=== PATIENT | male | born 1935 | race Caucasian/White ===

== ENCOUNTER → 2016-10-02 | Outpatient (CLI) | payer OTHER ==
[~2016-10-02] MED LIST: ATOR10TA88 PO; MULT-506 PO; OMEG10007 PO; TRAZ50TA35 PO
[2016-10-02 13:38] LABS: CHOLESTEROL/HDL RATIO 4.5
== END | disposition home or self-care (01) ==
LOC: C.LABPVFM 08:07
PROVIDERS: ATTEND Family Medicine
DX: E78.5 Hyperlipidemia, unspecified (principal)

== ENCOUNTER → 2017-04-08 | Day surgery (SDC) | payer OTHER ==
[2017-04-07 11:40] VITALS: Ht 172.7 cm; Wt 75.5 kg
[~2017-04-08] VITALS: Ht 172.7 cm; Wt 75.5 kg
[~2017-04-08] MED LIST changes: +500ML BSSPLUS 0.5ML EPI1:1000 IRRIG ONE; +ACETAMINOPHEN 325 MG TAB PO PRN; +ATROPINE SULFATE 0.1 MG/ML 5ML SYR IV PRN; +ATROPINE SULFATE 1% OP OINT PER APPLICATION CHARGE ONE; +BSS FLUSH ONE; +BUPIVACAINE HCL 0.75% 10 ML AMP/VIAL ONE; +CEFAZOLIN SOD 1 GM VIAL ONE; +DEXAMETHASONE SOD INJ 4 MG/ML VIAL ONE; +EpHEDrine SULFATE INJ 50 MG/ML AMP IV PRN; +EpINEphrine INJ 1MG/ML AMP 1 MG/ML AMP ONE; +FENTANYL CITRATE INJ 50 MCG/1 ML 2 ML VIAL IV PRN; +FLUMAZENIL 0.1 MG/1 ML 10 ML VIAL IV PRN; +HYALURONIDASE HUMAN 150 UNIT/ML INJ ONE; +HYDROmorphone INJ 2 MG/ML SYR/VIAL IV PRN; +LABETALOL HCL IV 5 MG/ML 20ML IV PRN; +LACTATED RINGER'S 1000ML 500 ML IV SCH; +LIDOCAINE HCL 2% 2 ML VIAL (20MG/ML) ONE; +LIDOCAINE MPF 4% INJ INJ ONE; +MEPERIDINE HCL 25 MG/ML CARP IV PRN; +NALOXONE HCL 0.4 MG/1 ML VIAL/CARP IV PRN; +NEOMYCIN/POLYMYX/DEXAMETH OP OINT PER APP CHARGE ONE; +OCUCOAT 1 ML SOLN IO ONE; +ONDANSETRON INJ 2 MG/ML 2 ML VIAL IV PRN; +PHENYLEPHRINE 100MCG/ML 5ML SYR IV PRN; +POVIDONE-IODINE OP SOLN (SURGERY CNTR CHARGING ONLY) ONE; +PROPARACAINE 0.5% OP SOLN PER DROP CHARGE OPR SCH; +PROPOFOL IV EMULSION 10 MG/ML 20 ML VIAL IV ONE; +TIMOLOL MALEATE 0.5% OP SOLN PER DROP CHARGE ONE
[2017-04-08] MEDS: PHENYLEPHRINE HCL 2.5% OP SOLN PER DROP CHARGE OPR SCH ×2 (06:36→06:44)
[2017-04-08] MEDS: TROPICAMIDE 1% OP SOLN PER DROP CHARGE OPR SCH ×2 (06:37→06:45)
--- NOTE | 2017-04-08 06:54 | History & Physical Bridge - [place] ---
H&P Re-Evaluation Bridge Note: pt has retinal detachment right eye and is having vitrectomy right eye. I have examined the patient, reviewed the History & Physical and in the interval since the performance of the History & Physical I have noted the following changes of clinical significance: No changes noted
[2017-04-08 08:06] VITALS: TEMP 36.5
--- NOTE | 2017-04-08 08:09 | [facility] Operative Report ---
Operative Report Date of Service Apr 08, 2017. Operative Report PREOPERATIVE DIAGNOSIS: Retinal detachment, right eye. ICD 10: H33.011 POSTOPERATIVE DIAGNOSIS: same. PROCEDURE: 1. Pars plana vitrectomy, 23 gauge. 2. Fluid-air exchange. 3. Endolaser. 4 Air-gas exchange with SF6 20%. All to the right eye. CPT CODE: 91921 SURGEON: Isidro Payne D.O. COMPLICATIONS: None. ESTIMATED BLOOD LOSS: None. SPECIMENS: None. ANESTHESIA: Retrobulbar block and MAC. INDICATIONS FOR PROCEDURE: Surgery is indicated to decrease risk of vision loss and potentially improve vision. CONSENT: The risks, benefits and alternatives were discussed with the patient including but not limited to decreased visual acuity, failure to achieve desired results, loss of the eye, infection, pain, glaucoma, lens changes, retinal tears, retinal detachment, the need for more procedures, drooping of the eyelid, blindness, and double vision. The patient is aware of risks and consents to the surgery. Consent is signed and on the chart. OPERATION AND FINDINGS: The patient was brought to the operating room where the patient was identified by name, date, and medical record number. The surgical site was confirmed with the informed written consent. The patient was sedated by the anesthesiology team after which a 50:50 mixture of 4% lidocaine and 0.75% bupivacaine with hyaluronidase was administered in a standard retrobulbar fashion. A total of 4 ml was administered without difficulty. The patient was then prepped and draped in the usual sterile manner for retinal surgery. A wire lid speculum was placed and an Carlos 23-gauge trocar cannula system was employed. The inferior temporal trocar cannula was first placed in an angled fashion 3.75mm posterior to the surgical limbus and the infusion cannula was inserted into this cannula after which the intravitreal position was verified prior to turning the infusion on. Two more trocar cannulas were then inserted in an angled fashion, one in the superior temporal, and one in the superior nasal quadrant both 3.75mm posterior to the surgical limbus. A light pipe and vitrector were then introduced into the eye and the BIOM wide angle viewing system was brought into place. Posterior inspection revealed a retinal detachment from 10 to 7 o'clock with the small inciting retinal break at 12:30 o'clock. Standard core vitrectomy was performed and the vitreous was insured to be totally detached from the posterior pole with the aid of the vitrector. The vitreous base was shaved for 360 degrees. At this point scleral depression was performed for 360 degrees and no other retinal tears were noted. Fluid air exchange was performed and the subretinal fluid was drained through a small retinotomy site that was fashioned superior to the optic nerve also one was fashioned inferior to the optic nerve. Endolaser was then used to place laser around the inciting retinal break and the drainage retinotomies and the superior quadrant. Next, an air gas exchange was performed with SF620% for a complete fill of the eye. The trocar cannulas were then removed and found to be air tight. The intraocular pressure was found to be within normal limits by palpation and subconjunctival injections of Kefzol and dexamethasone were administered inferiorly and superiorly. The wire lid speculum was removed. Maxitrol, atropine and timolol were applied to the surface of the eye. A light patch and shield were taped over the surface of the eye and the patient left the Operating Room in stable condition having tolerated the procedure well. DISPOSITION: A gas bracelet was placed on the patient's wrist and gas precautions reviewed as well as the positioning instructions. The patient has an appointment the following morning in the Ophthalmology Clinic. The patient is to call immediately if there are any problems overnight. I attest to the content of the Intraoperative Record and any orders documented therein. Any exceptions are noted below.
--- NOTE | 2017-04-08 08:11 | Discharge Instructions-SurgCtr ---
Discharge Instructions Date of Service Apr 08, 2017. Visit Reason for Visit: Retinal Detachment Discharge Discharge Diagnosis / Problem: same Discharge Goals Goal(s): Improve function Activity Recommendations Activity Limitations: per Instructions/Follow-up section Anesthesia . Post Anesthesia Instructions: If you have had General Anesthesia or IV Sedation: * Do not drive today. * Resume driving when surgeon permits. * Do not make important decisions or sign legal documents today. * Call surgeon for: 1. Temperature elevations greater than 101 degrees F. 2. Uncontrollable pain. 3. Excessive bleeding. 4. Persistent nausea and vomiting. 5. Medication intolerance (nausea, vomiting or rash). * For nausea and vomiting use only clear liquids such as: tea, soda, bouillon until nausea subsides, then gradually increase diet as tolerated. * If you have any concerns or questions, call your surgeon's office. If physician is unavailable and it is an emergency, call 911 or go to the nearest emergency room. . Instructions / Follow-Up Instructions / Follow-Up * May take Tylenol if needed for discomfort. * Do NOT lay on back and position head as follows: face forward, chin down. Sleep right side down. * Do NOT remove green bracelet until instructed to do so by your surgeon and follow these precautions: * No air travel * No travel above 2500 feet * No nitrous oxide (N2O). * Do NOT remove eye shield. * NO straining, heavy lifting (>15 pounds) or bending below waist. * Avoid getting water or soap directly into operative eye. * Do NOT rub eye. If you experience increasing eye pain not relieved by medication, please contact us immediately at [phone]. If you are unable to reach someone at the above number, call [phone] and ask to speak with the EYE DOCTOR CATERING TRUCK OPERATOR. Inform them that you are a Dr. aPyne patient who had recent surgery. Diet Recommendations Home Diet: resume previous diet Procedures Procedures Performed: Right Vitrectomy 23 Gauge Pending Studies Studies pending at discharge: no Medical Emergencies . Who to Call and When: Medical Emergencies: If at any time you feel your situation is an emergency, please call 911 immediately. . Non-Emergent Contact Non-Emergency issues call your: Vessel Slagman . . "Provider Documentation" section prepared by Isidro Payne. .
--- NOTE | 2017-04-08 08:24 | Anesthesia Progress Nt - [facility] ---
Anesthesia Post Op Note Date & Time Apr 08, 2017 at 08:24 Vital Signs Pain Intensity: 0 Vital Signs Past 12 Hours Date Time Temp Pulse Resp B/P (MAP) Pulse Ox O2 Delivery O2 Flow Rate FiO2 04/08/17 08:06 36.5 74 18 161/82 (108) 96 Room Air 04/08/17 06:27 36.4 70 18 128/77 (94) 96 Room Air Notes Mental Status: alert / awake / arousable, participated in evaluation Pt Amnestic to Procedure: Yes Nausea / Vomiting: adequately controlled Pain: adequately controlled Airway Patency, RR, SpO2: stable & adequate BP & HR: stable & adequate Hydration State: stable & adequate Anesthetic Complications: no major complications apparent
[2017-04-08 08:28] VITALS: BP 160/84; PULSE 67; O2SAT 95
== END | disposition home or self-care (01) ==
LOC: X.SURG 06:08
PROVIDERS: ATTEND Ophthalmology
DX: H33.011 Retinal detachment with single break, right eye (principal); R03.0 Elevated blood-pressure reading, without diagnosis of hypertension; E78.5 Hyperlipidemia, unspecified; L29.9 Pruritus, unspecified; L30.9 Dermatitis, unspecified; Z85.828 Personal history of other malignant neoplasm of skin

== ENCOUNTER → 2017-08-12 | Outpatient (CLI) | payer OTHER ==
[~2017-08-12] MED LIST changes: -500ML BSSPLUS 0.5ML EPI1:1000 IRRIG ONE; -ACETAMINOPHEN 325 MG TAB PO PRN; +ATOR10TA82 PO; -ATOR10TA88 PO; -ATROPINE SULFATE 0.1 MG/ML 5ML SYR IV PRN; -ATROPINE SULFATE 1% OP OINT PER APPLICATION CHARGE ONE; -BSS FLUSH ONE; -BUPIVACAINE HCL 0.75% 10 ML AMP/VIAL ONE; -CEFAZOLIN SOD 1 GM VIAL ONE; -DEXAMETHASONE SOD INJ 4 MG/ML VIAL ONE; -EpHEDrine SULFATE INJ 50 MG/ML AMP IV PRN; -EpINEphrine INJ 1MG/ML AMP 1 MG/ML AMP ONE; -FENTANYL CITRATE INJ 50 MCG/1 ML 2 ML VIAL IV PRN; -FLUMAZENIL 0.1 MG/1 ML 10 ML VIAL IV PRN; -HYALURONIDASE HUMAN 150 UNIT/ML INJ ONE; -HYDROmorphone INJ 2 MG/ML SYR/VIAL IV PRN; -LABETALOL HCL IV 5 MG/ML 20ML IV PRN; -LACTATED RINGER'S 1000ML 500 ML IV SCH; -LIDOCAINE HCL 2% 2 ML VIAL (20MG/ML) ONE; -LIDOCAINE MPF 4% INJ INJ ONE; -MEPERIDINE HCL 25 MG/ML CARP IV PRN; -NALOXONE HCL 0.4 MG/1 ML VIAL/CARP IV PRN; -NEOMYCIN/POLYMYX/DEXAMETH OP OINT PER APP CHARGE ONE; -OCUCOAT 1 ML SOLN IO ONE; -ONDANSETRON INJ 2 MG/ML 2 ML VIAL IV PRN; -PHENYLEPHRINE 100MCG/ML 5ML SYR IV PRN; -POVIDONE-IODINE OP SOLN (SURGERY CNTR CHARGING ONLY) ONE; -PROPARACAINE 0.5% OP SOLN PER DROP CHARGE OPR SCH; -PROPOFOL IV EMULSION 10 MG/ML 20 ML VIAL IV ONE; -TIMOLOL MALEATE 0.5% OP SOLN PER DROP CHARGE ONE
[2017-08-12 12:37] LABS: BASO % 0.2 %; BASO ABS # 0.02 K/uL (0-0.2); EOS % 2.3 %; EOS ABS # 0.28 K/uL (0-0.5); HEMATOCRIT 40.8 % (42-52); HEMOGLOBIN 13.7 g/dL (14.0-18.0); IG# 0.05 K/uL (0.00-0.02); LYMPH % 19.8 %; LYMPH ABS # 2.36 K/uL (1.2-3.4); MEAN CELL VOLUME 94.7 fL (80-100); MEAN CORPUSCULAR HEMOGLOBIN 31.8 pg (25-34); MEAN CORPUSCULAR HGB CONC 33.6 g/dl (32-36); MEAN PLATELET VOLUME 9.5 fL (7.4-10.4); MONO % 8.3 %; MONO ABS # 0.99 K/uL (0.11-0.59); NEUT ABS # 8.22 K/uL (1.4-6.5); PLATELET COUNT 215 K/uL (130-400); RED CELL DISTRIBUTION WIDTH SD 45.1 fL (36.4-46.3); WHITE BLOOD COUNT 11.92 K/uL (4.8-10.8)
[2017-08-12 12:41] LABS: ALBUMIN 3.2 gm/dl (3.4-5.0); ALT/SGPT 22 U/L (12-78); BLOOD UREA NITROGEN 20 mg/dl (7-18); CALCIUM 9.1 mg/dl (8.5-10.1); CARBON DIOXIDE 28 mmol/L (21-32); CREATININE 1.05 mg/dl (0.60-1.40); GLUCOSE 99 mg/dl (70-99); POTASSIUM 4.5 mmol/L (3.5-5.1); SODIUM 139 mmol/L (136-145)
[2017-08-12 12:44] LABS: ALKALINE PHOSPHATASE 55 U/L (45-117); AST/SGOT 20 U/L (15-37)
== END | disposition home or self-care (01) ==
LOC: C.LAB1850 11:23
PROVIDERS: ATTEND Internal Medicine Pulmonary Disease
DX: L29.9 Pruritus, unspecified (principal); L50.3 Dermatographic urticaria

== ENCOUNTER 2022-06-06 19:16 | Observation (INO) ==
[2022-06-06] MEDS ORDERED: SODIUM CHLORIDE 0.9% 1000ML 1,000 ML IV SCH (19:30)
--- NOTE | 2022-06-06 19:57 | XRay Report ---
XR chest 1V portable CLINICAL HISTORY: syncope TECHNIQUE: Single frontal radiograph of the chest was obtained. Comparison: Comparison is made to chest radiograph 11/26/2020 FINDINGS: No lines and tubes are seen. Cardiomegaly is noted. The lungs are clear. No evidence of pleural effus ion or pneumothorax. IMPRESSION: No acute chest disease. Cardiomegaly is noted. ACT 112: Negative or not required by law. Electronically signed by: Vini Tobin M.D. 06/06/2022 7:55 PM
[2022-06-06 20:04] LABS: Basophils # (auto) 0.04 K/uL (0-0.2); Basophils % (auto) 0.3 %; Eosinophils # (auto) 0.32 K/uL (0-0.50); Eosinophils % (auto) 2.2 %; Hematocrit (blood only) 37.6 % (40.1-51.0); Hemoglobin 13.1 g/dl (14.0-18.0); Immature Granulocytes # (auto) 0.05 K/uL (0.00-0.02); Immature Granulocytes % (auto) 0.3 %; Lymphocytes # (auto) 1.85 K/uL (1.2-3.4); Lymphocytes % (auto) 12.6 %; Mean Corpuscular Hemoglobin 32.5 pg (25.0-34.0); Mean Corpuscular Hgb Conc 34.8 g/dL (32.0-36.0); Mean Corpuscular Volume 93.3 fL (80.0-100.0); Mean Platelet Volume 9.1 fL (9.4-12.4); Monocytes # (auto) 1.11 K/uL (0.24-0.82); Monocytes % (auto) 7.6 %; Neutrophils # (auto) 11.31 K/uL (1.4-6.5); Platelet Count 267 K/uL (130-400); RDW Coefficient of Variation 12.3 % (11.5-14.5); RDW Standard Deviation 42.3 fL (36.4-46.3); Red Blood Count 4.03 M/uL (4.63-6.08); White Blood Count 14.68 K/ul (4.8-10.8)
[2022-06-06 20:15] LABS: Prothrombin Time 10.3 Seconds (9.0-12.0)
[2022-06-06 20:28] LABS: Albumin Globulin Ratio 1.1 (0.9-2); Albumin Level 3.8 gm/dl (3.4-5.0); Bilirubin,Total 0.5 mg/dl (0.2-1.0); Calcium 9.1 mg/dl (8.5-10.1); Creatinine Clr Calc Pharmacy 44.6 ml/min; Est GFR (African American) 66.4 ml/min; Est GFR (Non-African American) 57.3 ml/min; Globulin 3.4 gm/dl (2.5-4.0); Magnesium 2.1 mg/dl (1.7-2.4); Potassium 4.3 mmol/L (3.5-5.1); Total Protein 7.2 gm/dl (6.0-8.3)
[2022-06-06 20:31] LABS: Troponin I High Sensitivity 6.1 pg/ml (0-20)
--- NOTE | 2022-06-06 20:37 | CT Scan Report ---
CT cervical spine wo con CLINICAL HISTORY: fall, [facility] TECHNIQUE: Multidetector row helical CT of the cervical spine was performed without administration of intravenous contrast. Coronal and sagittal reformations were obtained. Automated dose lowering techn iques and/or adjustment according to patient size were utilized for this exam. Comparison: None available at the time of this dictation. FINDINGS: No acute fractures or subluxations are identified. Degenerative changes are seen in the visualized sp ine. The alignment is normal. Soft tissues are unremarkable. IMPRESSION: Degenerative changes without evidence of acute bony injury. ACT 112: Negative or not required by law. Electronically signed by: Vini Tobin M.D. 06/06/2022 8:35 PM
[2022-06-06 20:41] LABS: Thyroid Stimulating Hormone 6.754 uIu/ml (0.300-4.500)
--- NOTE | 2022-06-06 20:46 | CT Scan Report ---
CT head/brain wo con CLINICAL HISTORY: syncope [facility] Technique: Contiguous axial CT images of the head were acquired from the base of the skull to the jung janette without intravenous contrast administration. Images were viewed in brain, subdural and bone [facility]. Automated dose lowering techniques and/or adjustment according to patient size were utilized for this exam. Comparison: Comparison is made to CT head 11/26/2020 Findings: Areas of decreased attenuation are present in the periventricular and subcortical white matter bilate rally consistent with small vessel ischemic disease. Generalized cerebral volume loss with commensura te enlargement of the ventricles, sulci, and cisterns is also present. There is a subacute appearing mildly complex right subdural collection measuring up to 7 mm in diameter, compared to 5 mm in prior exam. No significant mass effect or midline shift is seen. A few linear densities in the subdural col lection are unchanged from prior exam Sinus disease is seen in the bilateral maxillary sinuses. The orbits appear normal. There are no acu te fractures of the calvaria or scalp swelling. Impression: No acute abnormalities. Interval enlargement of a small right fluid collection which appears subdural . No evidence of acute hemorrhage, however may represent enlarged subarachnoid space versus chronic s ubdural hemorrhage. ACT 112: Negative or not required by law. Electronically signed by: Vini Tobin M.D. 06/06/2022 8:44 PM
[2022-06-06 20:49] LABS: Influenza A virus by PCR Negative (Neg); Influenza B virus by PCR Negative (Neg); RSV by PCR Negative (Neg); SARS CoV2 RNA(COVID-19)Cepheid NEGATIVE (Negative)
[2022-06-06 21:06] LABS: Appearance Urine Clear (Clear); Bacteria Urine Automated Negative (Negative); Bilirubin Urine Negative (Negative); Blood Urine 2+ (Negative); Color Urine Yellow; Epithelial Cell Urine Auto >30 /lpf (0-5); Glucose Urine UA Negative (Negative); Ketones Urine Negative (Negative); Leukocyte Esterase Urine Negative (Negative); Nitrite Urine Negative (Negative); RBC Urine Automated >30 /hpf (0-4); Specific Gravity Urine 1.015 (1.000-1.030); Urobilinogen Urine Negative (Negative); pH Urine 7.5 (4.5-7.5)
[2022-06-06 21:14] LABS: Protein Urine 2+ (Negative)
[2022-06-06 21:16] LABS: T4 Free Thyroxine 0.84 ng/dl (0.61-1.60)
[2022-06-06] MEDS ORDERED: ACETAMINOPHEN 325 MG TAB PO PRN (23:04)
[2022-06-06] MEDS ORDERED: POLYETHYLENE (MIRALAX) 17 GM PACK PO PRN (23:04)
--- NOTE | 2022-06-06 23:04 | History & Physical Report ---
Date of Service June 06, 2022 Assessment & Plan (1) Fall: Plan: 87yo Male with PMH dementia hypothyroidism HLD BPH Anxiety insomnia here for unwitnessed fall. Here today with and son. Per , patient was walking back from kitchen when he fell on the floor. Fall -shuffling gait but no resting tremor cogwheel rigidity, does not like to use cane -CT head: No acute abnormalities. Interval enlargement of a small right fluid collection which appears subdural. No evidence of acute hemorrhage, however may represent enlarged subarachnoid space versus chronic subdural hemorrhage. -CT spine: Degenerative changes without evidence of acute bony injury. -CXR: No acute chest disease. Cardiomegaly is noted. -EKG: NSR -Trop negx1 -WBC 14.68 -UA trace hematuria protenuria -ordered lactate, CRP, procal to rule out infection -ordered orthostatics -ordered PT/OT -trend CBC Head Injury -located on left side of head after fall -ED to place stitches Dementia -continue donepezil Hypothyroidism -TSH elevated 6.754 -possibly reactive, recheck in 1 month BPH -continue finasteride, midodrine Anxiety -continue sertraline Insomnia -continue trazadone BERNARDO -ordered HS CPAP HLD -continue atorvastatin FENa: regular Code Status: full PT/OT: ordered Dispo: graeme/Tressa Hunt D.O. PGY 2, FCM (2) Mixed dementia: (3) Severe sleep apnea: (4) Hypothyroid: (5) Hyperlipidemia: (6) Anxiety: (7) Memory impairment: History of Present Illness Chief Complaint: Fall Primary Care Provider: Erika Sequeira MD 87yo Male with PMH dementia hypothyroidism HLD BPH sertraline insomnia here for unwitnessed fall. Here today with and son. Per , patient was walking back from kitchen when he fell on the floor. Patient does not recall the fall itself. He denies any headache vision changes nausea vomitting fever SOB chest pain abd pain urniary difficulty weakness or change in sensation. States the left side of his head does hurt if you touch his wound. Per family, patient has a shuffling gait, refuses to use a cane at home, does not appear to have any difficulty making turns while walking. He has had numerous other falls at home. Family states his mentation is fairly ok at this time however is still confused. Patient able to identify current location and date, identifies year correctly however said he was 37 years old. He is in charge of his medication with some assistance from his , he does not know his current medications. Patient states the left side of his face occasionally gets pain/itchiness from a previous viral infection, it is not causing him discomfort at this time. states his right lower eyelid is newly red, patient denies any pain or discomfort in his eye at this time. Allergies Allergy/AdvReac Type Severity Reaction Status Date / Time walnut Allergy Severe AFFECTS Verified 06/06/22 20:48 THE LINING OF MOUTH AND THROAT (ITCHY) lidocaine Allergy Mild Rash Verified 06/06/22 20:48 Home Medications Medication Instructions Recorded Confirmed Type multivitamin 1 tab PO QAM 12/28/18 06/06/22 History omega 9-qgr-psw-fish oil 1,000 mg 1 cap PO QAM 12/28/18 06/06/22 History (120 mg-180 mg) capsule (Fish Oil) cholecalciferol (vitamin D3) 25 25 mcg PO QAM 05/16/20 06/06/22 History mcg (1,000 unit) tablet (Vitamin D3) vitamin E 200 unit capsule 200 unit PO QAM 05/16/20 06/06/22 History albuterol sulfate 90 mcg/actuation 2 puff inhalation QID PRN 11/12/21 06/06/22 Rx aerosol inhaler shortness of breath or wheezing #6.7 grams atorvastatin 10 mg tablet 10 mg PO HS #90 tabs 12/09/21 06/06/22 Rx levothyroxine 50 mcg tablet 50 mcg PO DAILY #90 tabs 12/09/21 06/06/22 Rx sertraline 50 mg tablet 50 mg PO DAILY #30 tabs 01/17/22 06/06/22 Rx midodrine 2.5 mg tablet 2.5 mg PO .COMPLEX #60 tabs 01/21/22 06/06/22 Rx donepezil 5 mg tablet 5 mg PO DAILY #30 tabs 05/02/22 06/06/22 Rx finasteride 5 mg tablet 5 mg PO DAILY #90 tabs 05/06/22 06/06/22 Rx benzonatate 100 mg capsule 100 mg PO TID PRN cough #20 caps 05/19/22 06/06/22 Rx trazodone 50 mg tablet 50 mg PO HS 06/06/22 06/06/22 History Past Med/Surg History Medical History (Updated 06/06/22 @ 23:24 by Tressa Montejo DO) Anosmia 2018? Anxiety Basal cell carcinoma of skin Benign neoplasm of colon Cholecystitis Epigastric abdominal pain Fatigue Ongoing issue x 2 yrs, pt has had cardiac workup, neuro eval and uro eval to r/o bladder ca. Hyperlipidemia HZV (herpes zoster virus) post herpetic neuralgia Intractable abdominal pain Lightheadedness AM Memory impairment PCP and pt's feel pt showing signs of dementia, pt was started on Aricept but stopped taking it. Right rotator cuff tendonitis Sensorineural hearing loss of both ears Severe dizziness Negative cardiac and neuro workup. Severe sleep apnea Shingles LEFT EYE-DX'D 2 YRS AGO Sleep disturbances Temporomandibular joint disorder CLICKS-HAS NEVER LOCKED Surgical History H/O umbilical hernia repair (05/31/20) Open Incisional Hernia Repair with Mesh Open Umbilical Hernia Repair with Mesh, excision of skin lesion, Enterolysis Dr. Navas 05/31/2020 History of incisional hernia repair (05/31/20) Open Incisional Hernia Repair with Mesh; - Kranthi Navas, Open Umbilical Hernia Repair with Mesh, excision of skin lesion, Enterolysis Dr. Navas 05/31/2020 History of shoulder surgery LEFT Hx of colonoscopy S/P appendectomy PT DENIES Family History Mother Myocardial infarction Father No problems noted. Other No family history of adverse response to anesthesia No family history of bleeding disorder Denies family history of Ovarian cancer Prostate cancer Breast cancer Colorectal cancer Social History Smoking Status: Never smoker Second Hand Exposure: No; Do You Dip or Chew Tobacco: No; Tobacco Cessation Education Requested by Patient: No Hx Alcohol Use: No Hx Substance Use: No Preferred Language: Polish Communication Ability: dementia Visual Impairment: No Limitations Hearing Ability: Use of Hearing Aid Open Cut Examiner Required: No Beliefs That Will Affect Care: None marital status: Current Living Situation: Spouse current occupational status: retired 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, [employer]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 How many Children do You have: 2 Other Information That Helps Us Care for You: No 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76 Feels Safe at Home: Yes Safety Concerns: Feels Safe At This Time Childhood Exposure to Second-Hand Smoke: No caffeine: Yes (tea rarely) during the past year weight has: remained stable Dental Care, Regularly: Yes Physical Activity Frequency: 3-4 Times per Week Seatbelt Use: always Sunscreen Use: Yes Do you think of yourself as: straight/heterosexual Gender Identity: Male Assistive Devices: None Review of Systems Constitutional: as per Subjective / HPI Physical Exam Constitutional: WD/WN, vitals as above Eyes: PERRL, conjunctivae normal, anicteric sclerae ENMT: external ear and nose normal, oropharynx normal bleeding bandaged injury on left side of head Neck: trachea midline, no thyromegaly Respiratory: normal respiratory effort, lungs clear to auscultation Cardiovascular: Rate/Rhythm: regular rate and regular rhythm Extremities: no edema Gastrointestinal (Abdomen): Inspection/Auscultation: abdomen normal to inspection Percussion/Palpation: abdomen soft; abdomen nontender Musculoskeletal: no cyanosis or clubbing, extremities motor strength 5/5 Skin: no rashes, warm and dry 1.5cm darkened round lesion on left lateral leg, followed by dermatology Neurologic: CN's II-XI intact bilaterally and + confused no resting tremor, no cogwheel rigidity Psychiatric: A+Ox3, euthymic affect Results & Data Results & Data ([facility]) Vital Signs (Past 12 Hours) Vital Signs Temp Pulse Pulse Resp BP BP Pulse Ox 06/06/22 21:25 78 18 129/72 91 06/06/22 21:00 37.2 C 82 16 140/75 93 06/06/22 19:26 87 22 93 06/06/22 19:25 36.9 C 87 16 170/88 H 90 06/06/22 19:25 90 06/06/22 19:04 36.9 C 87 22 170/88 H 90 O2 Del Method 06/06/22 21:25 Room Air 06/06/22 21:00 Room Air 06/06/22 19:26 Room Air 06/06/22 19:25 Room Air 06/06/22 19:25 Room Air 06/06/22 19:04 Room Air Diagnostic Findings Laboratory Results WBC 14.68 K/ul (4.8-10.8) H 06/06/22 19:40 RBC 4.03 M/uL (4.63-6.08) L 06/06/22 19:40 Hgb 13.1 g/dl (14.0-18.0) L 06/06/22 19:40 Hct 37.6 % (40.1-51.0) L 06/06/22 19:40 MCV 93.3 fL (80.0-100.0) 06/06/22 19:40 MCH 32.5 pg (25.0-34.0) 06/06/22 19:40 MCHC 34.8 g/dL (32.0-36.0) 06/06/22 19:40 RDW Std Deviation 42.3 fL (36.4-46.3) 06/06/22 19:40 RDW Coeff of Roby 12.3 % (11.5-14.5) 06/06/22 19:40 Plt Count 267 K/uL (130-400) 06/06/22 19:40 MPV 9.1 fL (9.4-12.4) L 06/06/22 19:40 Immature Gran % (Auto) 0.3 % 06/06/22 19:40 Neut % (Auto) 77.0 % 06/06/22 19:40 Lymph % (Auto) 12.6 % 06/06/22 19:40 [place] % (Auto) 7.6 % 06/06/22 19:40 Eos % (Auto) 2.2 % 06/06/22 19:40 Baso % (Auto) 0.3 % 06/06/22 19:40 Neut # (Auto) 11.31 K/uL (1.4-6.5) H 06/06/22 19:40 Lymph # (Auto) 1.85 K/uL (1.2-3.4) 06/06/22 19:40 [place] # (Auto) 1.11 K/uL (0.24-0.82) H 06/06/22 19:40 Eos # (Auto) 0.32 K/uL (0-0.50) 06/06/22 19:40 Baso # (Auto) 0.04 K/uL (0-0.2) 06/06/22 19:40 Immature Gran # (Auto) 0.05 K/uL (0.00-0.02) H 06/06/22 19:40 PT 10.3 Seconds (9.0-12.0) 06/06/22 19:40 INR 1.0 (0.9-1.1) 06/06/22 19:40 Sodium 138 mmol/L (136-145) 06/06/22 19:40 Potassium 4.3 mmol/L (3.5-5.1) 06/06/22 19:40 Chloride 103 mmol/L (98-107) 06/06/22 19:40 Carbon Dioxide 28 mmol/L (21-32) 06/06/22 19:40 Anion Gap 7 (3-11) 06/06/22 19:40 BUN 23 mg/dl (6-23) 06/06/22 19:40 Creatinine 1.15 mg/dl (0.6-1.4) 06/06/22 19:40 Est Cr Clr Drug Dosing 44.6 ml/min 06/06/22 19:40 Est GFR ( Amer) 66.4 ml/min 06/06/22 19:40 Est GFR (Non-Af Amer) 57.3 ml/min 06/06/22 19:40 BUN/Creatinine Ratio 20.0 (10-20) 06/06/22 19:40 Glucose 101 mg/dl (70-99(Fasting)) H 06/06/22 19:40 Calcium 9.1 mg/dl (8.5-10.1) 06/06/22 19:40 Magnesium 2.1 mg/dl (1.7-2.4) 06/06/22 19:40 Total Bilirubin 0.5 mg/dl (0.2-1.0) 06/06/22 19:40 AST 19 U/L (13-39) 06/06/22 19:40 ALT 14 U/L (7-52) 06/06/22 19:40 Alkaline Phosphatase 55 U/L (34-104) 06/06/22 19:40 Troponin I High Sens 6.1 pg/ml (0-20) 06/06/22 19:40 Total Protein 7.2 gm/dl (6.0-8.3) 06/06/22 19:40 Albumin 3.8 gm/dl (3.4-5.0) 06/06/22 19:40 Globulin 3.4 gm/dl (2.5-4.0) 06/06/22 19:40 Albumin/Globulin Ratio 1.1 (0.9-2) 06/06/22 19:40 TSH 6.754 uIu/ml (0.300-4.500) H 06/06/22 19:40 Free T4 0.84 ng/dl (0.61-1.60) 06/06/22 19:40 Urine Color Yellow 06/06/22 20:30 Urine Appearance Clear (Clear) 06/06/22 20:30 Urine pH 7.5 (4.5-7.5) 06/06/22 20:30 Ur Specific [place] 1.015 (1.000-1.030) 06/06/22 20:30 Urine Protein 2+ (Negative) H 06/06/22 20:30 Urine Glucose (UA) Negative (Negative) 06/06/22 20:30 Urine Ketones Negative (Negative) 06/06/22 20:30 Urine Blood 2+ (Negative) H 06/06/22 20:30 Urine Nitrite Negative (Negative) 06/06/22 20:30 Urine Bilirubin Negative (Negative) 06/06/22 20:30 Urine Urobilinogen Negative (Negative) 06/06/22 20:30 Ur Leukocyte Esterase Negative (Negative) 06/06/22 20:30 Urine WBC (Auto) 1-5 /hpf (0-5) 06/06/22 20:30 Urine RBC (Auto) >30 /hpf (0-4) H 06/06/22 20:30 U Hyaline Cast (Auto) 1-5 /lpf (0-5) 06/06/22 20:30 U Epithel Cells (Auto) >30 /lpf (0-5) H 06/06/22 20:30 Urine Bacteria (Auto) Negative (Negative) 06/06/22 20:30 Ur Renal Epithelial Cell Not Reportable 06/06/22 20:30 SARS-CoV-2 (PCR) NEGATIVE (Negative) 06/06/22 19:40 Influenza Type A (PCR) Negative (Neg) 06/06/22 19:40 Influenza Type B (PCR) Negative (Neg) 06/06/22 19:40 RSV (RT-PCR) Negative (Neg) 06/06/22 19:[address] 06/06/22 19:26 CT cervical spine wo con CLINICAL HISTORY: fall, [facility] TECHNIQUE: Multidetector row helical CT of the cervical spine was performed without administration of intravenous contrast. Coronal and sagittal reformations were obtained. Automated dose lowering techniques and/or adjustment according to patient size were utilized for this exam. Comparison: None available at the time of this dictation. FINDINGS: No acute fractures or subluxations are identified. Degenerative changes are seen in the visualized spine. The alignment is normal. Soft tissues are unremarkable. IMPRESSION: Degenerative changes without evidence of acute bony injury. ACT 112: Negative or not required by law. Electronically signed by: Vini Tobin M.D. 06/06/2022 8:[address] 06/06/22 19:26 CT head/brain wo con CLINICAL HISTORY: syncope CHI Technique: Contiguous axial CT images of the head were acquired from the base of the skull to the vertex without intravenous contrast administration. Images were viewed in brain, subdural and bone windows. Automated dose lowering techniques and/or adjustment according to patient size were utilized for this exam. Comparison: Comparison is made to CT head 11/26/2020 Findings: Areas of decreased attenuation are present in the periventricular and subcortical white matter bilaterally consistent with small vessel ischemic disease. Generalized cerebral volume loss with commensurate enlargement of the ventricles, sulci, and cisterns is also present. There is a subacute appearing mildly complex right subdural collection measuring up to 7 mm in diameter, compared to 5 mm in prior exam. No significant mass effect or midline shift is seen. A few linear densities in the subdural collection are unchanged from prior exam Sinus disease is seen in the bilateral maxillary sinuses. The orbits appear normal. There are no acute fractures of the calvaria or scalp swelling. Impression: No acute abnormalities. Interval enlargement of a small right fluid collection which appears subdural. No evidence of acute hemorrhage, however may represent enlarged subarachnoid space versus chronic subdural hemorrhage. ACT 112: Negative or not required by law. Electronically signed by: Vini Tobin M.D. 06/06/2022 8:44 PM Chest X-Ray 06/06/22 19:27 XR chest 1V portable CLINICAL HISTORY: syncope TECHNIQUE: Single frontal radiograph of the chest was obtained. Comparison: Comparison is made to chest radiograph 11/26/2020 FINDINGS: No lines and tubes are seen. Cardiomegaly is noted. The lungs are clear. No evidence of pleural effusion or pneumothorax. IMPRESSION: No acute chest disease. Cardiomegaly is noted. ACT 112: Negative or not required by law. Electronically signed by: Vini Tobin M.D. 06/06/2022 7:55 PM Medications Administered Current Inpatient Medications Acetaminophen (Acetaminophen 325 Mg Tab) 650 mg PO Q4H PRN PRN Reason: Pain or Fever Stop: 07/06/22 23:03 Albuterol (Albuterol Hfa 8 Gm Inhaler) 2 puffs INH QID PRN PRN Reason: shortness of breath or wheezing Stop: 07/06/22 23:11 Atorvastatin Calcium (Atorvastatin 10 Mg Tab) 10 mg PO HS MIKEL Stop: 07/07/22 20:59 Donepezil HCl (Donepezil Hcl 5 Mg Tab) 5 mg PO DAILY MIKEL Stop: 07/07/22 08:59 Finasteride (Finasteride 5 Mg Tab) 5 mg PO DAILY MIKEL Stop: 07/07/22 08:59 Sodium Chloride (Nss 1000ml) 1,000 mls @ 125 mls/hr IV .Q8H MIKEL Stop: 07/06/22 19:29 Last Admin: 06/06/22 20:09 Dose: 125 mls/hr Levothyroxine Sodium (Levothyroxine Sodium 50 Mcg Tablet) 50 mcg PO DAILY MIKEL Stop: 07/07/22 08:59 Midodrine (Midodrine Hcl 2.5 Mg Tab) 2.5 mg PO .COMPLEX MIKEL Stop: 07/07/22 06:14 Non-Formulary Medication (Cholecalciferol (Vitamin D3) [Vitamin D3]) 25 mcg PO QAM MIKEL Stop: 07/07/22 08:59 Non-Formulary Medication (Multivitamin) 1 tab PO QAM MIKEL Stop: 07/07/22 08:59 Non-Formulary Medication ([place] 8-Yoi-Vfd-Fish Oil [Fish Oil]) 1 cap PO QAM MIKEL Stop: 07/07/22 08:59 Polyethylene Glycol (Polyethylene (Miralax) 17 Gm Pack) 17 gm PO DAILY PRN PRN Reason: Constipation Stop: 07/06/22 23:03 Sertraline HCl (Sertraline Hcl 50 Mg Tablet) 50 mg PO DAILY MIKEL Stop: 07/07/22 08:59 Trazodone HCl (Trazodone Hcl 50 Mg Tab) 50 mg PO HS MIKEL Stop: 07/06/22 23:14 Vitamin E (Tocopheryl, Dl-Alpha 100 Units Cap) 200 units PO QAM MIKEL Stop: 07/07/22 08:59 Supervising Physician Co-Signing Physician Notes Attending addendum: I have physically seen this patient, have supervised the medical residents activities, and agree with the H&P unless as otherwise noted. Assessment and Plan: Syncope with fall- Admit to telemetry to monitor for arrhythmia CT head with interval enlargement of a small right fluid collection representing either an enlarged subarachnoid space versus chronic subdural hemorrhage Repeat CT in a.m. if change in symptoms CT C-spine negative Chest x-ray without acute findings Consult PT/OT Orthostatic vital signs, continue midodrine Dementia- Continue donepezil Remaining orders and notations as noted Resident Activity Tracking Resident Involvement: Resident Care Provided Care Provided: Adult Hospital Medicine
[2022-06-06] MEDS ORDERED: LIDOCAINE/EPINEPH/TETRACAINE 1 EA SYR EXT STA (23:09)
[2022-06-06] MEDS ORDERED: ALBUTEROL HFA 8 GM INHALER INH PRN (23:12)
[2022-06-06] MEDS ORDERED: traZODone HCL 50 MG TAB PO SCH (23:15)
[2022-06-06 23:49] LABS: C Reactive Protein 1.77 mg/dl (0-0.5)
[2022-06-07] MEDS ORDERED: LEVOTHYROXINE SODIUM 50 MCG TABLET PO SCH (06:30)
[2022-06-07 06:36] LABS: Hematocrit (blood only) 34.1 % (40.1-51.0); Hemoglobin 11.6 g/dl (14.0-18.0); Mean Corpuscular Hemoglobin 31.9 pg (25.0-34.0); Mean Corpuscular Volume 93.7 fL (80.0-100.0); Mean Platelet Volume 9.1 fL (9.4-12.4); Platelet Count 230 K/uL (130-400); RDW Coefficient of Variation 12.4 % (11.5-14.5); RDW Standard Deviation 42.5 fL (36.4-46.3); Red Blood Count 3.64 M/uL (4.63-6.08); White Blood Count 13.24 K/ul (4.8-10.8)
[2022-06-07 06:55] LABS: BUN Creatinine Ratio 17.1 (10-20); Calcium 8.4 mg/dl (8.5-10.1); Creatinine Clr Calc Pharmacy 46.2 ml/min; Est GFR (African American) 69.3 ml/min; Est GFR (Non-African American) 59.8 ml/min; Potassium 4.4 mmol/L (3.5-5.1)
--- NOTE | 2022-06-07 08:18 | Electrocardiogram Report ---
Test Reason : Blood Pressure : / mmHG Vent. Rate : 083 BPM Atrial Rate : 083 BPM P-R Int : 142 ms QRS Dur : 094 ms QT Int : 358 ms P-R-T Axes : 047 033 025 degrees QTc Int : 420 ms Normal sinus rhythm Normal ECG When compared with ECG of 26-NOV-2020 13:07, No significant change was found Confirmed by Jim Fuller ([id number]) on 06/07/2022 8:18:24 AM Referred By: REFERRED SELF Confirmed By:Jim Fuller
[2022-06-07] MEDS ORDERED: TOCOPHERYL, DL-ALPHA 100 UNITS CAP PO SCH (09:00)
[2022-06-07] MEDS ORDERED: OMEGA-3 (PURIFIED FISH OIL) 1 GM CAP PO SCH (09:00)
[2022-06-07] MEDS ORDERED: MIDODRINE HCL 2.5 MG TAB PO SCH ×2 (09:00→18:00)
[2022-06-07] MEDS ORDERED: MULTIVITAMIN TAB PO SCH (09:00)
[2022-06-07] MEDS ORDERED: FINASTERIDE 5 MG TAB PO SCH (09:00)
[2022-06-07] MEDS ORDERED: CHOLECALCIFEROL 1,000 UNITS 25 MCG TAB PO SCH (09:00)
[2022-06-07] MEDS ORDERED: DONEPEZIL HCL 5 MG TAB PO SCH (09:00)
[2022-06-07] MEDS ORDERED: SERTRALINE HCL 50 MG TABLET PO SCH (09:00)
--- NOTE | 2022-06-07 15:35 | Discharge Summary ---
Date of Service June 07, 2022 Admission HPI Per Admitting Provider 87yo Male with PMH dementia hypothyroidism HLD BPH sertraline insomnia here for unwitnessed fall. Here today with and son. Per , patient was walking back from kitchen when he fell on the floor. Patient does not recall the fall itself. He denies any headache vision changes nausea vomitting fever SOB chest pain abd pain urniary difficulty weakness or change in sensation. States the left side of his head does hurt if you touch his wound. Per family, patient has a shuffling gait, refuses to use a cane at home, does not appear to have any difficulty making turns while walking. He has had numerous other falls at home. Family states his mentation is fairly ok at this time however is still confused. Patient able to identify current location and date, identifies year correctly however said he was 37 years old. He is in charge of his medication with some assistance from his , he does not know his current medications. Patient states the left side of his face occasionally gets pain/itchiness from a previous viral infection, it is not causing him discomfort at this time. states his right lower eyelid is newly red, patient denies any pain or discomfort in his eye at this time. Principal Diagnosis Mechanical fall scalp laceration Discharge Exam GENERAL: 87 yo Well-developed, well-nourished elderly WM. NAD. LUNGS: Clear to auscultation bilaterally. No W/R/R. CARDIOVASCULAR: Regular rate and rhythm. ABDOMEN: Soft, non-tender and non-distended. BS normoactive x 4 quad. EXTREMITIES: No edema. Non-tender. Peripheral pulses +2/4. NEUROLOGIC: A&O x3. Nonfocal PSYCHIATRIC: Cooperative. Appropriate mood and affect. SKIN: Warm, dry. Small laceration to left scalp closed with dermabond. Discharge Data Allergies Allergy/AdvReac Type Severity Reaction Status Date / Time walnut Allergy Severe AFFECTS Verified 06/06/22 20:48 THE LINING OF MOUTH AND THROAT (ITCHY) lidocaine Allergy Mild Rash Verified 06/06/22 20:48 Ordered Studies Cervical Spine CT 06/06/22 19:26 CT cervical spine wo con CLINICAL HISTORY: fall, [facility] TECHNIQUE: Multidetector row helical CT of the cervical spine was performed without administration of intravenous contrast. Coronal and sagittal reformations were obtained. Automated dose lowering techniques and/or adjustment according to patient size were utilized for this exam. Comparison: None available at the time of this dictation. FINDINGS: No acute fractures or subluxations are identified. Degenerative changes are seen in the visualized spine. The alignment is normal. Soft tissues are unremarkable. IMPRESSION: Degenerative changes without evidence of acute bony injury. ACT 112: Negative or not required by law. Electronically signed by: Vini Tobin M.D. 06/06/2022 8:[address] 06/06/22 19:26 CT head/brain wo con CLINICAL HISTORY: syncope CHI Technique: Contiguous axial CT images of the head were acquired from the base of the skull to the vertex without intravenous contrast administration. Images were viewed in brain, subdural and bone windows. Automated dose lowering techniques and/or adjustment according to patient size were utilized for this exam. Comparison: Comparison is made to CT head 11/26/2020 Findings: Areas of decreased attenuation are present in the periventricular and subcortical white matter bilaterally consistent with small vessel ischemic disease. Generalized cerebral volume loss with commensurate enlargement of the ventricles, sulci, and cisterns is also present. There is a subacute appearing mildly complex right subdural collection measuring up to 7 mm in diameter, compared to 5 mm in prior exam. No significant mass effect or midline shift is s een. A few linear densities in the subdural collection are unchanged from prior exam Sinus disease is seen in the bilateral maxillary sinuses. The orbits appear normal. There are no acute fractures of the calvaria or scalp swelling. Impression: No acute abnormalities. Interval enlargement of a small right fluid collection which appears subdural. No evidence of acute hemorrhage, however may represent enlarged subarachnoid space versus chronic subdural hemorrhage. ACT 112: Negative or not required by law. Electronically signed by: Vini Tobin M.D. 06/06/2022 8:44 PM Chest X-Ray 06/06/22 19:27 XR chest 1V portable CLINICAL HISTORY: syncope TECHNIQUE: Single frontal radiograph of the chest was obtained. Comparison: Comparison is made to chest radiograph 11/26/2020 FINDINGS: No lines and tubes are seen. Cardiomegaly is noted. The lungs are clear. No evidence of pleural effusion or pneumothorax. IMPRESSION: No acute chest disease. Cardiomegaly is noted. ACT 112: Negative or not required by law. Electronically signed by: Vini Tobin M.D. 06/06/2022 7:55 PM Hospital Course (1) Fall: 87yo Male with PMH dementia hypothyroidism HLD BPH Anxiety insomnia here for unwitnessed fall. Here today with and son. Per , patient was walking back from kitchen when he fell on the floor. Fall with CHI - shuffling gait but no resting tremor cogwheel rigidity, does not like to use cane - CT head: No acute abnormalities. Interval enlargement of a small right fluid collection which appears subdural. No evidence of acute hemorrhage, however may represent enlarged subarachnoid space versus chronic subdural hemorrhage. This was re-read on 06/07 and felt to represent all chronic findings. Of note, pt is not on anticoagulation. - CT spine: Degenerative changes without evidence of acute bony injury. - CXR: No acute chest disease. Cardiomegaly is noted. - EKG: NSR - Trop negx1 - WBC 14.68 --> 13.24 - UA trace hematuria proteinuria - ordered lactate 1.3, CRP 1.77, and procal <0.5 - ordered orthostatics which were within normal limits - ordered PT/OT but did not see him in the hospital - pt up out of bed with RN and did well - located on left side of head after fall - ED closed with dermabond - Close f/u with pcp advised, d/w pt's , Alma who verbalized understanding (2) Mixed dementia: - Continue Aricept (3) Severe sleep apnea: - Continue CPAP (4) Hypothyroid: - Continue Levothyroxine at current dose - TSH slightly up at 6.754 but FT4 WNL (5) Hyperlipidemia: - Continue Atorvastatin (6) Anxiety: - Continue Zoloft and Trazodone Plan Patient is medically and hemodynamically stable for dc home with his . Son is to transport. Advised contacting pcp office on Thursday to schedule close follow up. Plan d/w Dr. Deejay Presley who is in agreement. Total Time Total Time Spent Total Time Spent (In Minutes): <30 minutes Discharge Plan Discharge Items Patient Disposition: Home - Self-Care Reason For Visit: FALL Discharge Diagnosis: fall - suspect mechanical fall Activity: Resume your previous activity Non-emergency contact: Primary Care Provider Call non-emergency contact if: you have any medication questions Follow-up/Referrals: Erika Sequeira MD [Primary Care Provider] - Diet: Regular Addtl Attending Provider Instructions: You were hospitalized after sustaining a fall at home. It sounds like you may have tripped while wearing slippers over the metal transition strip in your home. Fortunately, it does not appear that you sustained any significant traumatic injury other than the scalp cut. This cut has been closed using a special glue that will slowly dissolve over time. Please only use Tylenol as needed for any aches or pains. If you should develop blurred vision or severe headache, you need to be re- evaluated in the emergency department immediately. I would advise that you call Thursday to follow up with your family doctor this coming week. If you have any questions or concerns after you are discharged, you can call the nonemergency number listed on your paperwork. In the event of a medical emergency, call 911. Pending Studies at Discharge: No Stand-Alone Forms: My [facility] TriplePulse, Smoking Cessation Medications and DC Order Prescriptions: Continued levothyroxine 50 mcg tablet 50 mcg PO DAILY Qty: 90 3RF atorvastatin 10 mg tablet 10 mg PO HS Qty: 90 3RF donepezil 5 mg tablet 5 mg PO DAILY Qty: 30 2RF albuterol sulfate 90 mcg/actuation HFA aerosol inhaler 2 puff inhalation QID PRN (Reason: shortness of breath or wheezing) Qty: 6.7 0RF benzonatate 100 mg capsule 100 mg PO TID PRN (Reason: cough) Qty: 20 0RF finasteride 5 mg tablet 5 mg PO DAILY Qty: 90 3RF sertraline 50 mg tablet 50 mg PO DAILY Qty: 30 8RF midodrine 2.5 mg tablet 2.5 mg PO .COMPLEX Qty: 60 0RF Rx Instructions: 2.5 mg PO 2 tabs in am and 1 tab in pm; do not give last dose of day after 6PM or within 4 hrs of bedtime multivitamin Tablet 1 tab PO QAM omega 6-cow-sem-fish oil [Fish Oil] 1,000 mg (120 mg-180 mg) Capsule 1 cap PO QAM cholecalciferol (vitamin D3) [Vitamin D3] 25 mcg (1,000 unit) Tablet 25 mcg PO QAM vitamin E 200 unit Capsule 200 unit PO QAM trazodone 50 mg tablet 50 mg PO HS Discharge Orders: Discharge Order (Routine); Ordered 06/07/22 Ordered By: Kim Walsh Admission Data Admit Date/Time: 06/06/22 23:06 Attending Provider: Deejay Presley Admit Provider: Tressa Montejo Primary Care Provider: Erika Sequeira Other Interventions: Discharge Summary Assessment (RN) Last Done: 06/07/22 15:37 Supervising Physician Co-Signing Physician Notes I supervised Kim Walsh PA-C on the care of this patient. I did not see the patient as he had been seen by an attending in the last 24 hours. The plan is as written in her note except for any following changes/exceptions: None 87yo here with mechanical fall. Patient and family feel he will be safe at home and request discharge. CT findings were reviewed with radiologist today who agree they appear chronic. Coding Level of Care Code 10507 OBS Care - Discharge Diagnoses Fall W19.XXXA Mixed dementia G30.9; F01.50; F02.80 Severe sleep apnea G47.30 Hypothyroid E03.9 Hyperlipidemia E78.5 Anxiety F41.9
--- NOTE | 2022-06-07 20:08 | Billing Data ---
Date of Service June 07, 2022 Coding Level of Care Code INT OBSERVATION CARE 71M LVL 3
[2022-06-07] MEDS ORDERED: ATORVASTATIN 10 MG TAB PO SCH (21:00)
--- NOTE | 2022-06-09 04:35 | Emergency Department Note ---
Impression & Plan Syncope, Laceration of eyebrow, left (Ruled Out): Chest pain ED Provider Note CHIEF COMPLAINT: Fall/syncopal episode with laceration to the forehead HISTORY OF PRESENT ILLNESS: This 87-year-old male patient presents to the emergency department with complaints of a syncopal episode with fall causing a laceration above his left eyebrow. Patient states he is not quite sure what happened, he was in his own home and on the hardwood floor. He does have a history of dementia and lives at home with his . His witnessed the fall. She states he was unconscious for a minute or so and then was somewhat confused. He did not vomit. Patient denies any recollection of chest pain or shortness of breath prior to the episode. REVIEW OF SYSTEMS: A review of systems was performed with positives and pertinent negatives listed in the history of present illness. 10 systems were reviewed and are otherwise negative. ALLERGIES: see below MEDICATIONS: see below PMH: see below SOCIAL HISTORY: see below DDx: Vasovagal event, dehydration, infection, hypoglycemia, electrolyte abnormalities, cardiac sources, intracerebral event, pulmonary embolism, seizure, toxicologic, neurologic, as well as other pathologies. PHYSICAL EXAM: Vital signs reviewed. General: Elderly but otherwise well-appearing 87-year-old male, in no significant distress. HEENT: No scleral icterus, PERRLA, neck supple. Fusion noted to the left with a subcentimeter laceration laterally, bleeding controlled. Cardiovascular: Regular rate and rhythm, no extra sounds. Pulmonary: Clear to auscultation bilaterally, normal work of breathing. Abdomen: Soft, nontender, nondistended, positive bowel sounds. Musculoskeletal: Atraumatic, no peripheral edema. Neurologic: Patient awake alert and oriented x 3, speech is clear Skin: Warm, dry, no rash EMERGENCY DEPARTMENT COURSE/MDM: This patient was evaluated and appeared to be in no significant distress. IV access was obtained and laboratory work was drawn. 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 CT imaging of the head was performed and reveals chronic fluid collections consistent with a subdural hygroma and CT neck was performed and reveals no evidence of acute fracture. Laboratory work is fairly reassuring with exception of a leukocytosis of 14.68. UA is significant for microscopic blood. EKG reveals a normal sinus rhythm without evidence of dysrhythmia or acute ischemia. Given the patient's leukocytosis, fall versus syncope with closed head injury, he will be evaluated by the hospitalist service for admission and further management. The left eyebrow wound was approximated by my self, please see procedure note below. MONITORING: An order for cardiac monitoring was placed and the patient is noted to be in a normal sinus rhythm at 83 beats per minute. RADIOLOGY: See below EKG: Normal sinus rhythm 83 bpm, normal ST segments. QTC of 420. No PVC, no PAC. Normal axis. No significant change from previous when compared to November 26, 2020. PROCEDURE:Location: L eyebrow Total length: 0.75cm Complexity: simple Verbal consent was obtained after the risks and benefits were explained, including but not limited to bleeding, scarring, infection, pain, and bone/joint/nerve damage. At this time, the risks of the procedure are less than the risks of NOT performing the procedure. A time out was taken and the correct patient and site identified. The skin was prepped with betadine. The target area was anesthetized with LET gel. Copious irrigation was performed using saline. Th e skin was re-prepped with betadine and a sterile field set. The wound was explored for foreign bodies and none found. Examination revealed no injury to deep structures such as tendons, bone, or significant blood vessels. Debridement was not performed. The wound edges were approximated using dermabond. Hemostasis and excellent approximation was achieved. Antibacterial ointment and a sterile dressing applied. Detailed wound care instructions and signs and symptoms of infection reviewed with the patient/. No complications and the patient tolerated the procedure well. DISPOSITION: Admission Past Med/Surg History Medical History Anosmia 2019? Anxiety Basal cell carcinoma of skin Benign neoplasm of colon Cholecystitis Epigastric abdominal pain Fatigue Ongoing issue x 2 yrs, pt has had cardiac workup, neuro eval and uro eval to r/o bladder ca. Hyperlipidemia HZV (herpes zoster virus) post herpetic neuralgia Intractable abdominal pain Lightheadedness AM Memory impairment PCP and pt's feel pt showing signs of dementia, pt was started on Aricept but stopped taking it. Right rotator cuff tendonitis Sensorineural hearing loss of both ears Severe dizziness Negative cardiac and neuro workup. Severe sleep apnea Shingles LEFT EYE-DX'D 2 YRS AGO Sleep disturbances Temporomandibular joint disorder CLICKS-HAS NEVER LOCKED Surgical History H/O umbilical hernia repair (05/31/20) Open Incisional Hernia Repair with Mesh Open Umbilical Hernia Repair with Mesh, excision of skin lesion, Enterolysis Dr. Navas 05/31/2020 History of incisional hernia repair (05/31/20) Open Incisional Hernia Repair with Mesh; - Kranthi Navas, DO Open Umbilical Hernia Repair with Mesh, excision of skin lesion, Enterolysis Dr. Navas 05/31/2020 History of shoulder surgery LEFT Hx of colonoscopy S/P appendectomy PT DENIES Family History Mother , age 73 of an PA Myocardial infarction Father , age 92 of uncertain cause No problems noted. Other No family history of adverse response to anesthesia No family history of bleeding disorder Denies family history of Ovarian cancer Prostate cancer Breast cancer Colorectal cancer Social History Smoking Status: Never smoker Second Hand Exposure: No; Do You Dip or Chew Tobacco: No; Tobacco Cessation Education Requested by Patient: No Hx Alcohol Use: No Hx Substance Use: No Preferred Language: Yoruba Communication Ability: dementia Visual Impairment: No Limitations Hearing Ability: Use of Hearing Aid Steamer Gum Candy Required: No Beliefs That Will Affect Care: None marital status: Current Living Situation: Spouse current occupational status: retired 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, [employer]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 How many Children do You have: 2 Other Information That Helps Us Care for You: No 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76 Feels Safe at Home: Yes Safety Concerns: Feels Safe At This Time Childhood Exposure to Second-Hand Smoke: No caffeine: Yes (tea rarely) during the past year weight has: remained stable Dental Care, Regularly: Yes Physical Activity Frequency: 3-4 Times per Week Seatbelt Use: always Sunscreen Use: Yes Do you think of yourself as: straight/heterosexual Gender Identity: Male Assistive Devices: None Allergies Allergies Allergy/AdvReac Type Severity Reaction Status Date / Time walnut Allergy Severe AFFECTS Verified 06/06/22 20:48 THE LINING OF MOUTH AND THROAT (ITCHY) lidocaine Allergy Mild Rash Verified 06/06/22 20:48 Home Meds Home Medications Medication Instructions Recorded Confirmed multivitamin 1 tab PO QAM 12/28/18 06/06/22 omega [id number]-fish oil 1,000 mg 1 cap PO QAM 12/28/18 06/06/22 (120 mg-180 mg) capsule (Fish Oil) cholecalciferol (vitamin D3) 25 25 mcg PO QAM 05/16/20 06/06/22 mcg (1,000 unit) tablet (Vitamin D3) vitamin E 200 unit capsule 200 unit PO QAM 05/16/20 06/06/22 trazodone 50 mg tablet 50 mg PO HS 06/06/22 06/06/22 Previous Rx's Medication Instructions Recorded albuterol sulfate 90 mcg/actuation 2 puff inhalation QID PRN 11/12/21 aerosol inhaler shortness of breath or wheezing #6.7 grams atorvastatin 10 mg tablet 10 mg PO HS #90 tabs 12/09/21 levothyroxine 50 mcg tablet 50 mcg PO DAILY #90 tabs 12/09/21 sertraline 50 mg tablet 50 mg PO DAILY #30 tabs 01/17/22 midodrine 2.5 mg tablet 2.5 mg PO .COMPLEX #60 tabs 01/21/22 donepezil 5 mg tablet 5 mg PO DAILY #30 tabs 05/02/22 finasteride 5 mg tablet 5 mg PO DAILY #90 tabs 05/06/22 benzonatate 100 mg capsule 100 mg PO TID PRN cough #20 caps 05/19/22 azithromycin 250 mg tablet See Rx Instructions PO .COMPLEX #6 06/10/22 tabs prednisone 20 mg tablet 40 mg PO QAM #10 tabs 06/10/22 Results & Data (ED) Home Medications Current Medication List: was personally reviewed by me Laboratory Data Attestation: I reviewed the patient's lab results. Result diagrams: 06/07/22 06:15 06/07/22 06:15 Lab Results 06/06/22 06/06/22 06/06/22 Range/Units 19:40 19:40 19:40 WBC 14.68 H (4.8-10.8) K/ul RBC 4.03 L (4.63-6.08) M/uL Hgb 13.1 L (14.0-18.0) g/dl Hct 37.6 L (40.1-51.0) % MCV 93.3 (80.0-100.0) fL MCH 32.5 (25.0-34.0) pg MCHC 34.8 (32.0-36.0) g/dL RDW Std Deviation 42.3 (36.4-46.3) fL RDW Coeff of Roby 12.3 (11.5-14.5) % Plt Count 267 (130-400) K/uL MPV 9.1 L (9.4-12.4) fL Immature Gran % (Auto) 0.3 % Neut % (Auto) 77.0 % Lymph % (Auto) 12.6 % [place] % (Auto) 7.6 % Eos % (Auto) 2.2 % Baso % (Auto) 0.3 % Neut # (Auto) 11.31 H (1.4-6.5) K/uL Lymph # (Auto) 1.85 (1.2-3.4) K/uL Carolina # (Auto) 1.11 H (0.24-0.82) K/uL Eos # (Auto) 0.32 (0-0.50) K/uL Baso # (Auto) 0.04 (0-0.2) K/uL Immature Gran # (Auto) 0.05 H (0.00-0.02) K/uL PT 10.3 (9.0-12.0) Seconds INR 1.0 (0.9-1.1) Sodium 138 (136-145) mmol/L Potassium 4.3 (3.5-5.1) mmol/L Chloride 103 (98-107) mmol/L Carbon Dioxide 28 (21-32) mmol/L Anion Gap 7 (3-11) BUN 23 (6-23) mg/dl Creatinine 1.15 (0.6-1.4) mg/dl Est Cr Clr Drug Dosing 44.6 ml/min Est GFR ( Amer) 66.4 ml/min Est GFR (Non-Af Amer) 57.3 ml/min BUN/Creatinine Ratio 20.0 (10-20) Glucose 101 H (70-99(Fasting)) mg/dl Calcium 9.1 (8.5-10.1) mg/dl Magnesium 2.1 (1.7-2.4) mg/dl Total Bilirubin 0.5 (0.2-1.0) mg/dl AST 19 (13-39) U/L ALT 14 (7-52) U/L Alkaline Phosphatase 55 (34-104) U/L Troponin I High Sens 6.1 (0-20) pg/ml C-Reactive Protein 1.77 H (0-0.5) mg/dl Total Protein 7.2 (6.0-8.3) gm/dl Albumin 3.8 (3.4-5.0) gm/dl Globulin 3.4 (2.5-4.0) gm/dl Albumin/Globulin Ratio 1.1 (0.9-2) Procalcitonin (0-0.5) ng/ml TSH (0.300-4.500) uIu/ml Free T4 (0.61-1.60) ng/dl Urine Color Urine Appearance (Clear) Urine pH (4.5-7.5) Ur Specific [place] (1.000-1.030) Urine Protein (Negative) Urine Glucose (UA) (Negative) Urine Ketones (Negative) Urine Blood (Negative) Urine Nitrite (Negative) Urine Bilirubin (Negative) Urine Urobilinogen (Negative) Ur Leukocyte Esterase (Negative) Urine WBC (Auto) (0-5) /hpf Urine RBC (Auto) (0-4) /hpf U Hyaline Cast (Auto) (0-5) /lpf U Epithel Cells (Auto) (0-5) /lpf Urine Bacteria (Auto) (Negative) Ur Renal Epithelial Cell SARS-CoV-2 (PCR) (Negative) Influenza Type A (PCR) (Neg) Influenza Type B (PCR) (Neg) RSV (RT-PCR) (Neg) 06/06/22 06/06/22 06/06/22 Range/Units 19:40 19:40 19:40 WBC (4.8-10.8) K/ul RBC (4.63-6.08) M/uL Hgb (14.0-18.0) g/dl Hct (40.1-51.0) % MCV (80.0-100.0) fL MCH (25.0-34.0) pg MCHC (32.0-36.0) g/dL RDW Std Deviation (36.4-46.3) fL RDW Coeff of Roby (11.5-14.5) % Plt Count (130-400) K/uL MPV (9.4-12.4) fL Immature Gran % (Auto) % Neut % (Auto) % Lymph % (Auto) % [place] % (Auto) % Eos % (Auto) % Baso % (Auto) % Neut # (Auto) (1.4-6.5) K/uL Lymph # (Auto) (1.2-3.4) K/uL [place] # (Auto) (0.24-0.82) K/uL Eos # (Auto) (0-0.50) K/uL Baso # (Auto) (0-0.2) K/uL Immature Gran # (Auto) (0.00-0.02) K/uL PT (9.0-12.0) Seconds INR (0.9-1.1) Sodium (136-145) mmol/L Potassium (3.5-5.1) mmol/L Chloride (98-107) mmol/L Carbon Dioxide (21-32) mmol/L Anion Gap (3-11) BUN (6-23) mg/dl Creatinine (0.6-1.4) mg/dl Est Cr Clr Drug Dosing ml/min Est GFR ( Amer) ml/min Est GFR (Non-Af Amer) ml/min BUN/Creatinine Ratio (10-20) Glucose (70-99(Fasting)) mg/dl Calcium (8.5-10.1) mg/dl Magnesium (1.7-2.4) mg/dl Total Bilirubin (0.2-1.0) mg/dl AST (13-39) U/L ALT (7-52) U/L Alkaline Phosphatase (34-104) U/L Troponin I High Sens (0-20) pg/ml C-Reactive Protein (0-0.5) mg/dl Total Protein (6.0-8.3) gm/dl Albumin (3.4-5.0) gm/dl Globulin (2.5-4.0) gm/dl Albumin/Globulin Ratio (0.9-2) Procalcitonin < 0.05 (0-0.5) ng/ml TSH 6.754 H (0.300-4.500) uIu/ml Free T4 0.84 (0.61-1.60) ng/dl Urine Color Urine Appearance (Clear) Urine pH (4.5-7.5) Ur Specific [place] (1.000-1.030) Urine Protein (Negative) Urine Glucose (UA) (Negative) Urine Ketones (Negative) Urine Blood (Negative) Urine Nitrite (Negative) Urine Bilirubin (Negative) Urine Urobilinogen (Negative) Ur Leukocyte Esterase (Negative) Urine WBC (Auto) (0-5) /hpf Urine RBC (Auto) (0-4) /hpf U Hyaline Cast (Auto) (0-5) /lpf U Epithel Cells (Auto) (0-5) /lpf Urine Bacteria (Auto) (Negative) Ur Renal Epithelial Cell SARS-CoV-2 (PCR) NEGATIVE (Negative) Influenza Type A (PCR) Negative (Neg) Influenza Type B (PCR) Negative (Neg) RSV (RT-PCR) Negative (Neg) 06/06/22 Range/Units 20:30 WBC (4.8-10.8) K/ul RBC (4.63-6.08) M/uL Hgb (14.0-18.0) g/dl Hct (40.1-51.0) % MCV (80.0-100.0) fL MCH (25.0-34.0) pg MCHC (32.0-36.0) g/dL RDW Std Deviation (36.4-46.3) fL RDW Coeff of Roby (11.5-14.5) % Plt Count (130-400) K/uL MPV (9.4-12.4) fL Immature Gran % (Auto) % Neut % (Auto) % Lymph % (Auto) % [place] % (Auto) % Eos % (Auto) % Baso % (Auto) % Neut # (Auto) (1.4-6.5) K/uL Lymph # (Auto) (1.2-3.4) K/uL [place] # (Auto) (0.24-0.82) K/uL Eos # (Auto) (0-0.50) K/uL Baso # (Auto) (0-0.2) K/uL Immature Gran # (Auto) (0.00-0.02) K/uL PT (9.0-12.0) Seconds INR (0.9-1.1) Sodium (136-145) mmol/L Potassium (3.5-5.1) mmol/L Chloride (98-107) mmol/L Carbon Dioxide (21-32) mmol/L Anion Gap (3-11) BUN (6-23) mg/dl Creatinine (0.6-1.4) mg/dl Est Cr Clr Drug Dosing ml/min Est GFR ( Amer) ml/min Est GFR (Non-Af Amer) ml/min BUN/Creatinine Ratio (10-20) Glucose (70-99(Fasting)) mg/dl Calcium (8.5-10.1) mg/dl Magnesium (1.7-2.4) mg/dl Total Bilirubin (0.2-1.0) mg/dl AST (13-39) U/L ALT (7-52) U/L Alkaline Phosphatase (34-104) U/L Troponin I High Sens (0-20) pg/ml C-Reactive Protein (0-0.5) mg/dl Total Protein (6.0-8.3) gm/dl Albumin (3.4-5.0) gm/dl Globulin (2.5-4.0) gm/dl Albumin/Globulin Ratio (0.9-2) Procalcitonin (0-0.5) ng/ml TSH (0.300-4.500) uIu/ml Free T4 (0.61-1.60) ng/dl Urine Color Yellow Urine Appearance Clear (Clear) Urine pH 7.5 (4.5-7.5) Ur Specific [place] 1.015 (1.000-1.030) Urine Protein 2+ H (Negative) Urine Glucose (UA) Negative (Negative) Urine Ketones Negative (Negative) Urine Blood 2+ H (Negative) Urine Nitrite Negative (Negative) Urine Bilirubin Negative (Negative) Urine Urobilinogen Negative (Negative) Ur Leukocyte Esterase Negative (Negative) Urine WBC (Auto) 1-5 (0-5) /hpf Urine RBC (Auto) >30 H (0-4) /hpf U Hyaline Cast (Auto) 1-5 (0-5) /lpf U Epithel Cells (Auto) >30 H (0-5) /lpf Urine Bacteria (Auto) Negative (Negative) Ur Renal Epithelial Cell Not Reportable SARS-CoV-2 (PCR) (Negative) Influenza Type A (PCR) (Neg) Influenza Type B (PCR) (Neg) RSV (RT-PCR) (Neg) Administered Medications Discontinued Medications Acetaminophen (Acetaminophen 325 Mg Tab) 650 mg PO Q4H PRN PRN Reason: Pain or Fever Stop: 07/06/22 23:03 Last Admin: 06/07/22 04:40 Dose: 650 mg Documented By: FLEX Donepezil HCl (Donepezil Hcl 5 Mg Tab) 5 mg PO DAILY MIKEL Stop: 07/07/22 08:59 Last Admin: 06/07/22 08:16 Dose: 5 mg Documented By: JAHAIRA Finasteride (Finasteride 5 Mg Tab) 5 mg PO DAILY MIKEL Stop: 07/07/22 08:59 Last Admin: 06/07/22 08:16 Dose: 5 mg Documented By: JAHAIRA Fish Oil ([place]-3 (Purified Fish Oil) 1 Gm Cap) 1 gm PO QAM MIKEL Stop: 07/07/22 08:59 Last Admin: 06/07/22 08:16 Dose: 1 gm Documented By: JAHAIRA Sodium Chloride (Nss 1000ml) 1,000 mls @ 125 mls/hr IV .Q8H MIKEL Stop: 07/06/22 19:29 Last Infusion: 06/07/22 04:54 Dose: 0 mls/hr Documented By: Admin: 06/06/22 20:09 Dose: 125 mls/hr Documented By: RAPHAEL Levothyroxine Sodium (Levothyroxine Sodium 50 Mcg Tablet) 50 mcg PO DAILYBB [facility] Stop: 07/07/22 06:29 Last Admin: 06/07/22 06:00 Dose: 50 mcg Documented By: FLEX Lidocaine (Lidocaine/Epineph/Tetracaine 1 Ea Syr) 1 each EXT NOW STA Stop: 06/06/22 23:10 Last Admin: 06/06/22 23:16 Dose: 1 each Documented By: RAPHAEL Midodrine (Midodrine Hcl 2.5 Mg Tab) 5 mg PO QAM MIKEL Stop: 07/07/22 08:59 Last Admin: 06/07/22 08:16 Dose: 5 mg Documented By: JAHAIRA Multivitamins (Multivitamin Tab) 1 tab PO QAM MIKEL Stop: 07/07/22 08:59 Last Admin: 06/07/22 08:16 Dose: 1 tab Documented By: JAHAIRA Sertraline HCl (Sertraline Hcl 50 Mg Tablet) 50 mg PO DAILY MIKEL Stop: 07/07/22 08:59 Last Admin: 06/07/22 08:16 Dose: 50 mg Documented By: JAHAIRA Trazodone HCl (Trazodone Hcl 50 Mg Tab) 50 mg PO HS MIKEL Stop: 07/06/22 23:14 Last Admin: 06/07/22 01:06 Dose: 50 mg Documented By: FLEX Vitamin D (Cholecalciferol 1,000 Units 25 Mcg Tab) 1,000 units PO QAM MIKEL Stop: 07/07/22 08:59 Last Admin: 06/07/22 08:16 Dose: 1,000 units Documented By: JAHAIRA Vitamin E (Tocopheryl, Dl-Alpha 100 Units Cap) 200 units PO QAM MIKEL Stop: 07/07/22 08:59 Last Admin: 06/07/22 08:16 Dose: 200 units Documented By: JAHAIRA Imaging Data Radiologist's Impression: Cervical Spine CT 06/06/22 19:26 CT cervical spine wo con CLINICAL HISTORY: fall, [facility] TECHNIQUE: Multidetector row helical CT of the cervical spine was performed without administration of intravenous contrast. Coronal and sagittal reformations were obtained. Automated dose lowering techniques and/or adjustment according to patient size were utilized for this exam. Comparison: None available at the time of this dictation. FINDINGS: No acute fractures or subluxations are identified. Degenerative changes are seen in the visualized spine. The alignment is normal. Soft tissues are unremarkable. IMPRESSION: Degenerative changes without evidence of acute bony injury. ACT 112: Negative or not required by law. Electronically signed by: Vini Tobin M.D. 06/06/2022 8:[address] 06/06/22 19:26 CT head/brain wo con CLINICAL HISTORY: syncope CHI Technique: Contiguous axial CT images of the head were acquired from the base of the skull to the vertex without intravenous contrast administration. Images were viewed in brain, subdural and bone windows. Automated dose lowering techniques and/or adjustment according to patient size were utilized for this exam. Comparison: Comparison is made to CT head 11/26/2020 Findings: Areas of decreased attenuation are present in the periventricular and subcortical white matter bilaterally consistent with small vessel ischemic disease. Generalized cerebral volume loss with commensurate enlargement of the ventricles, sulci, and cisterns is also present. There is a subacute appearing mildly complex right subdural collection measuring up to 7 mm in diameter, compared to 5 mm in prior exam. No significant mass effect or midline shift is seen. A few linear densities in the subdural collection are unchanged from prior exam Sinus disease is seen in the bilateral maxillary sinuses. The orbits appear normal. There are no acute fractures of the calvaria or scalp swelling. Impression: No acute abnormalities. Interval enlargement of a small right fluid collection which appears subdural. No evidence of acute hemorrhage, however may represent enlarged subarachnoid space versus chronic subdural hemorrhage. ACT 112: Negative or not required by law. Electronically signed by: Vini Tobin M.D. 06/06/2022 8:44 PM Chest X-Ray 06/06/22 19:27 XR chest 1V portable CLINICAL HISTORY: syncope TECHNIQUE: Single frontal radiograph of the chest was obtained. Comparison: Comparison is made to chest radiograph 11/26/2020 FINDINGS: No lines and tubes are seen. Cardiomegaly is noted. The lungs are clear. No evidence of pleural effusion or pneumothorax. IMPRESSION: No acute chest disease. Cardiomegaly is noted. ACT 112: Negative or not required by law. Electronically signed by: Vini Tobin M.D. 06/06/2022 7:55 PM Blood Pressure Blood Pressure Findings: Normal blood pressure Blood Pressure Disposition: did not require urgent referral Head Trauma GCS Score: 15 Discharge Plan Visit Data Chief Complaint: Syncope Stated Complaint: syncope, fall ED Provider: Adriana Wills Discharge Problem: Syncope, Laceration of eyebrow, left Discharge Problem: (Ruled Out): Chest pain Patient Disposition: Admitted As Inpatient Discharge Instructions Interventions: ED Discharge Assessment Last Done: 06/07/22 00:59
== END 2022-06-07 17:15 | disposition home or self-care (01) ==
LOC: ED 19:16 → 2W 19:16 → SUATTDRO 23:06 → 2W 06-07 00:59

== ENCOUNTER 2022-12-07 17:54 | Observation (INO) ==
[2022-12-07] MEDS ORDERED: ACETAMINOPHEN 500 MG TAB PO STA (18:21)
--- NOTE | 2022-12-07 18:51 | Emergency Department Note ---
Impression & Plan Accidental fall, CHI (closed head injury), Abrasion of elbow, left, Abrasion of elbow, right, Fracture of rib, Hemothorax on left ED Provider Note INFORMANT: Patient and ED PROVIDER(S): Gage Kenyon MD CHIEF COMPLAINT: Left rib pain PLAN: Disposition: Admitted Condition: Good Outpatient prescription management: none Referral: None MEDICAL DECISION MAKING: Patient was evaluated. He had complaints of a fall and did have signs that he hit his head and was complaining of left rib pain. Patient underwent CT imaging of the head and chest. He was found to have a left-sided hemothorax. No pneumothorax. He did have rib fractures present. No flail chest on physical examination. Patient was treated with Tylenol and morphine in the ER. Patient's blood work was unremarkable. I discussed his findings with Dr. Presley of general surgery. He agreed with the findings consistent with hemothorax. No chest tube was recommended at this time given the duration from injury being 48 hours. He will consult on the patient. Patient will need monitoring in the hospital. Consultation was made with Dr. Nii Bennett of the [facility] service. Patient was evaluated in the ER for further management. Patient and educated. Discussed with account manager trainee After review of the information above and other included data, I feel the patient requires admission. Triage Nursing notes reviewed and agree them. Vital Signs: reviewed and remarkable for no significant abnormalities Prior /Outside records reviewed: Primary care record reviewed. Differential diagnosis: Fracture, dislocation, contusion, intra-abdominal, pneumothorax, intrathoracic, intracranial, neurologic, compartment syndrome, rhabdomyolysis, as well as other pathologies. Diagnostics, as interpreted by me: ECG: none Cardiac Monitoring: none Medical decision rules: none Imaging studies: CT scan of the head reveals no acute intracranial findings. CT scan of the chest reveals HPI: The patient is a 87year old male who presents to the Emergency Room with complaints of rib injury on the left side. This started 2 days ago and is from an accidental fall. The patient missed a step and fell over and struck the left side of his ribs. He noted mild pain then but it worsened today. The patient also notes the following associated symptoms, abrasions on both elbows without significant pain, frontal scalp abrasion. The patient has taken no medication for relieving factors. Current pain is rated as 9/10. Patient has history of frequent falls and balance issues. Pt denies LOC, headache, visual changes, neck pain, breathing difficulties, nausea, vomiting, abdominal pain, back pain, extremity pain, numbness, weakness,active bleeding, or other complaints. PAST MEDICAL HISTORY: See Below, syncope, cholecystitis PAST SURGICAL HISTORY: See Below, SOCIAL HISTORY: See Below, HOME MEDICATIONS: See Below ALLERGIES: See Below VITALS: See Below PHYSICAL EXAMINATION: GENERAL: Awake, alert, well-appearing, in no distress HENT: Normocephalic, forehead abrasions noted. Oropharynx unremarkable. EYES: Normal conjunctiva. Sclera non-icteric. NECK: Inspection normal. Non-tender. Supple. No nuchal rigidity. FROM. No masses. RESPIRATORY: Clear to auscultation. No wheezes. No rales. Normal respiratory effort. CARDIAC: Normal rate. Normal rhythm. No murmurs. No rubs. Extremities warm and well perfused. Pulses equal. No JVD. GI: Soft, non-distended. No tenderness to palpation. No rebound or guarding. No masses. RECTAL: Deferred. MUSCULOSKELETAL: Atraumatic. Chest examination reveals left lateral rib tenderness. The back is symmetrical on inspection without obvious abnormality. There is no CVA tenderness to palpation. No joint edema. LOWER EXTREMITIES: Calves are equal size bilaterally and non-tender. No edema. No discoloration. NEURO: Normal sensorium. No sensory or motor deficits noted. SKIN: No rash or jaundice noted. Past Med/Surg History Medical History Anosmia 2019? Anxiety Basal cell carcinoma of skin Benign neoplasm of colon Cholecystitis Epigastric abdominal pain Fatigue Ongoing issue x 2 yrs, pt has had cardiac workup, neuro eval and uro eval to r/o bladder ca. Hyperlipidemia HZV (herpes zoster virus) post herpetic neuralgia Intractable abdominal pain Lightheadedness AM Memory impairment PCP and pt's feel pt showing signs of dementia, following with neuro now. Orthostatic hypotension Right rotator cuff tendonitis Sensorineural hearing loss of both ears Severe dizziness Negative cardiac and neuro workup. Severe sleep apnea Shingles LEFT EYE-DX'D 5 YRS AGO Sleep disturbances Temporomandibular joint disorder CLICKS-HAS NEVER LOCKED Surgical History H/O umbilical hernia repair (05/31/20) Open Incisional Hernia Repair with Mesh Open Umbilical Hernia Repair with Mesh, excision of skin lesion, Enterolysis Dr. Navas 05/31/2020 History of incisional hernia repair (05/31/20) Open Incisional Hernia Repair with Mesh; - Kranthi Navas, DO Open Umbilical Hernia Repair with Mesh, excision of skin lesion, Enterolysis Dr. Navas 05/31/2020 History of shoulder surgery LEFT Hx of colonoscopy S/P appendectomy PT DENIES Family History Mother , age 73 of an OR Myocardial infarction Father , age 92 of uncertain cause No problems noted. Other No family history of adverse response to anesthesia No family history of bleeding disorder Denies family history of Ovarian cancer Prostate cancer Breast cancer Colorectal cancer Social History Smoking Status: Never smoker Second Hand Exposure: No; Do You Dip or Chew Tobacco: No; Hx Alcohol Use: No Hx Substance Use: No Preferred Language: German Communication Ability: dementia Communication Ability Comment: VERY HARD OF HEARING-WEARS BILAT AIDES-WILL BRING DOS Visual Impairment: No Limitations Hearing Ability: Use of Hearing Aid Heating Engineer Required: No Beliefs That Will Affect Care: None marital status: Current Living Situation: Spouse current occupational status: retired 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, [employer]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 How many Children do You have: 2 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76 Feels Safe at Home: Yes Childhood Exposure to Second-Hand Smoke: No Diet: regular caffeine: Yes (tea rarely) during the past year weight has: remained stable Dental Care, Regularly: Yes Physical Activity Frequency: 3-4 Times per Week Seatbelt Use: always Sunscreen Use: Yes Do you think of yourself as: straight/heterosexual Gender Identity: Male Assistive Devices: None Allergies Allergies Allergy/AdvReac Type Severity Reaction Status Date / Time walnut Allergy Severe AFFECTS Verified 11/28/22 11:04 THE LINING OF MOUTH AND THROAT (ITCHY) lidocaine Allergy Mild Rash Verified 11/28/22 11:04 Home Meds Home Medications Medication Instructions Recorded Confirmed multivitamin 1 tab PO QAM 12/28/18 12/07/22 omega 8-psv-chy-fish oil 1,000 mg 1 cap PO QAM 12/28/18 12/07/22 (120 mg-180 mg) capsule (Fish Oil) cholecalciferol (vitamin D3) 25 25 mcg PO QAM 05/16/20 12/07/22 mcg (1,000 unit) tablet (Vitamin D3) donepezil 10 mg tablet 10 mg PO HS 12/07/22 12/07/22 levothyroxine 50 mcg tablet 50 mcg PO DAILYBB 12/07/22 12/07/22 vitamin E acetate 134 mg (200 134 mg PO QAM 12/07/22 12/07/22 unit) capsule Previous Rx's Medication Instructions Recorded albuterol sulfate 90 mcg/actuation 2 puff inhalation QID PRN 11/12/21 aerosol inhaler shortness of breath or wheezing #6.7 grams atorvastatin 10 mg tablet 10 mg PO HS #90 tabs 12/09/21 finasteride 5 mg tablet 5 mg PO DAILY #90 tabs 05/06/22 sertraline 50 mg tablet 50 mg PO DAILY #30 tabs 11/03/22 mirabegron 25 mg tablet,extended 25 mg PO DAILY Urinary urgency 11/04/22 release 24 hr (Myrbetriq) #30 tabs trazodone 50 mg tablet 50 mg PO HS #30 tabs 11/10/22 midodrine 2.5 mg tablet 2.5 mg PO BID #60 tabs 11/28/22 Results & Data (ED) Vital Signs Vital Signs - 24 hr 12/07/22 17:58 12/07/22 18:19 12/07/22 19:52 Temperature 36.6 C Temperature Source Temporal Artery Scan Pulse Rate 83 73 67 Pulse Rate [Left Brachial] Pulse Rhythm Regular Pulse Rhythm [Left Brachial] Pulse Strength [Left Brachial] Respiratory Rate 14 Respiratory Effort / Characteristics Respiratory Depth Respiratory Pattern Blood Pressure [Left Arm] Blood Pressure Mean [Left Arm] Pulse Oximetry 99 93 Oxygen Delivery Method Room Air Room Air Sepsis New/Unexplained Change in Mental Status No Sepsis Action Taken by Nursing No Action Required 12/07/22 19:53 Temperature 36.9 C Temperature Source Oral Pulse Rate Pulse Rate [Left Brachial] 69 Pulse Rhythm Pulse Rhythm [Left Brachial] Regular Pulse Strength [Left Brachial] Normal Respiratory Rate 19 Respiratory Effort / Characteristics Non-Labored Spontaneous Respiratory Depth Normal Respiratory Pattern Regular Blood Pressure [Left Arm] 142/75 H Blood Pressure Mean [Left Arm] 97 Pulse Oximetry 96 Oxygen Delivery Method Room Air Sepsis New/Unexplained Change in Mental Status Sepsis Action Taken by Nursing Laboratory Data 12/07/22 19:34 12/07/22 19:34 Lab Results 12/07/22 12/07/22 12/07/22 Range/Units 19:34 19:34 19:35 WBC 12.94 H (4.8-10.8) K/ul RBC 4.06 L (4.70-6.10) M/uL Hgb 13.3 L (14.0-18.0) g/dl Hct 38.5 L (42.0-52.0) % MCV 94.8 (80.0-100.0) fL MCH 32.8 (25.0-34.0) pg MCHC 34.5 (32.0-36.0) g/dL RDW Std Deviation 42.7 (36.4-46.3) fL RDW Coeff of Roby 12.1 (11.5-14.5) % Plt Count 208 (130-400) K/uL MPV 9.7 (9.4-12.4) fL Immature Gran % (Auto) 0.4 % Neut % (Auto) 67.9 % Lymph % (Auto) 15.9 % [place] % (Auto) 8.9 % Eos % (Auto) 6.4 % Baso % (Auto) 0.5 % Neut # (Auto) 8.79 H (1.40-6.50) K/uL Lymph # (Auto) 2.06 (1.2-3.4) K/uL [place] # (Auto) 1.15 H (0.11-0.59) K/uL Eos # (Auto) 0.83 H (0-0.50) K/uL Baso # (Auto) 0.06 (0-0.2) K/uL Immature Gran # (Auto) 0.05 (0.01-0.20) K/uL Sodium 137 (136-145) mmol/L Potassium 4.3 (3.5-5.1) mmol/L Chloride 104 (98-107) mmol/L Carbon Dioxide 28 (21-32) mmol/L Anion Gap 5 (3-11) BUN 20 (6-23) mg/dl Creatinine 1.12 (0.6-1.4) mg/dl Est Cr Clr Drug Dosing 45.8 ml/min Est GFR ( Amer) 68.6 ml/min Est GFR (Non-Af Amer) 59.2 ml/min BUN/Creatinine Ratio 17.9 (10-20) Glucose 107 H (70-99(Fasting)) mg/dl Calcium 9.0 (8.6-10.3) mg/dl Total Bilirubin 0.6 (0.2-1.0) mg/dl AST 18 (13-39) U/L ALT 12 (7-52) U/L Alkaline Phosphatase 54 (34-104) U/L Troponin I High Sens 8.3 (0-20) pg/ml Total Protein 6.5 (6.0-8.3) gm/dl Albumin 3.7 (3.4-5.0) gm/dl Globulin 2.8 (2.5-4.0) gm/dl Albumin/Globulin Ratio 1.3 (0.9-2) SARS-CoV-2, RNA, NAAT NEGATIVE (NEGATIVE) Administered Medications Sodium Chloride (Nss 1000ml) 1,000 mls @ 125 mls/hr IV .Q8H MIKEL Stop: 01/06/23 19:29 Last Admin: 12/07/22 19:40 Dose: 125 mls/hr Documented By: MONA Morphine Sulfate (Morphine Sulfate 2 Mg/Ml Carp) 1 mg IV Q4H PRN PRN Reason: Severe Pain (Scale 7, 8, 9,10) Stop: 12/21/22 22:40 Last Admin: 12/08/22 00:45 Dose: 1 mg Documented By: ROSEMARY Discontinued Medications Acetaminophen (Acetaminophen 500 Mg Tab) 1,000 mg PO NOW STA Stop: 12/07/22 18:22 Last Admin: 12/07/22 18:28 Dose: 1,000 mg Documented By: MONA Morphine Sulfate (Morphine Sulfate 2 Mg/Ml Carp) 1 mg IV NOW STA Stop: 12/07/22 19:24 Last Admin: 12/07/22 19:39 Dose: 1 mg Documented By: MONA Imaging Data Radiologist's Impression: Chest CT 12/07/22 18:21 CT chest diagnostic wo con CLINICAL HISTORY: trauma TECHNIQUE: Multidetector row helical CT of the chest was performed. Coronal and sagittal reformations were obtained. Automated dose lowering techniques and/or adjustment according to patient size were utilized for this exam. CT DOSE: 1171.22 mGy.cm Comparison: Comparison is made to CT abdomen pelvis 05/09/2020 FINDINGS: Lungs and pleura: There is a hyperdense, small complex left sided effusion with associated atelectasis. Bronchial wall thickening is noted. Heart and pericardium: Cardiomegaly is seen with biatrial enlargement. Vessels: Moderate atherosclerotic changes in the aorta and coronary arteries. Mediastinum and hakan: Subcentimeter lymph nodes are seen. Chest wall and lower neck: Unremarkable. Abdomen: Patient is status post cholecystectomy. Fatty replacement of the panc reas is partially visualized. Bones: Minimally displaced lateral fractures of the left sixth and eighth ribs. Bone hemangioma is noted in the T12 vertebral body. IMPRESSION: Minimally displaced left lateral rib fractures. There is a small complex left pleural effusion which likely represents a component of hemothorax. ACT 112: Negative or not required by law. Electronically signed by: Vini Tobin M.D. 12/07/2022 7:[address] 12/07/22 18:21 CT head/brain wo con CLINICAL HISTORY: trauma Technique: Contiguous axial CT images of the head were acquired from the base of the skull to the vertex without intravenous contrast administration. Images were viewed in brain, subdural and bone windows. Automated dose lowering techniques and/or adjustment according to patient size were utilized for this exam. Comparison: Comparison is made to CT head 11/20/2022 Findings: Areas of decreased attenuation are present in the periventricular and subcortical white matter bilaterally consistent with small vessel ischemic disease. Generalized cerebral atrophy with commensurate enlargement of the ventricles, sulci, and cisterns is also present. There is no acute intracranial hemorrhage or evidence of acute territorial infarction. No shift of the midline structures, mass effect, or extra-axial abnormalities are shown. Atherosclerotic calcifications are present in the intracranial segments of the internal carotid arteries. Imaged portions of the paranasal sinuses and mastoid air cells are clear. The orbits appear normal. There are no acute fractures of the calvaria or scalp swelling. Impression: No acute intracranial hemorrhage, no evidence of acute territorial infarction or other acute intracranial disease process. ACT 112: Negative or not required by law. Electronically signed by: Vini Tobin M.D. 12/07/2022 6:58 PM Discharge Plan Visit Data Chief Complaint: Rib Injury/Pain Stated Complaint: LEFT RIB PAIN,POSSIBLY BROKEN ED Provider: Gage Kenyon Discharge Problem: Accidental fall, CHI (closed head injury), Abrasion of elbow, left, Abrasion of elbow, right, Fracture of rib, Hemothorax on left Patient Disposition: Admitted As Inpatient Discharge Instructions Interventions: ED Discharge Assessment Last Done: 12/07/22 22:36
--- NOTE | 2022-12-07 18:59 | CT Scan Report ---
CT head/brain wo con CLINICAL HISTORY: trauma Technique: Contiguous axial CT images of the head were acquired from the base of the skull to the jung janette without intravenous contrast administration. Images were viewed in brain, subdural and bone [facility] Automated dose lowering techniques and/or adjustment according to patient size were utilized for this exam. Comparison: Comparison is made to CT head 11/20/2022 Findings: Areas of decreased attenuation are present in the periventricular and subcortical white matter bilate rally consistent with small vessel ischemic disease. Generalized cerebral atrophy with commensurate e nlargement of the ventricles, sulci, and cisterns is also present. There is no acute intracranial hem orrhage or evidence of acute territorial infarction. No shift of the midline structures, mass effect, or extra-axial abnormalities are shown. Atherosclerotic calcifications are present in the intracran ial segments of the internal carotid arteries. Imaged portions of the paranasal sinuses and mastoid air cells are clear. The orbits appear normal. There are no acute fractures of the calvaria or scalp swelling. Impression: No acute intracranial hemorrhage, no evidence of acute territorial infarction or other acute intracra nial disease process. ACT 112: Negative or not required by law. Electronically signed by: Vini Tobin M.D. 12/07/2022 6:58 PM
--- NOTE | 2022-12-07 19:18 | CT Scan Report ---
CT chest diagnostic wo con CLINICAL HISTORY: trauma TECHNIQUE: Multidetector row helical CT of the chest was performed. Coronal and sagittal reformations were obtained. Automated dose lowering techniques and/or adjustment according to patient size were u tilized for this exam. CT DOSE: 1171.22 mGy.cm Comparison: Comparison is made to CT abdomen pelvis 05/09/2020 FINDINGS: Lungs and pleura: There is a hyperdense, small complex left sided effusion with associated atelectasi s. Bronchial wall thickening is noted. Heart and pericardium: Cardiomegaly is seen with biatrial enlargement. Vessels: Moderate atherosclerotic changes in the aorta and coronary arteries. Mediastinum and hakan: Subcentimeter lymph nodes are seen. Chest wall and lower neck: Unremarkable. Abdomen: Patient is status post cholecystectomy. Fatty replacement of the pancreas is partially visua lized. Bones: Minimally displaced lateral fractures of the left sixth and eighth ribs. Bone hemangioma is no mela in the T12 vertebral body. IMPRESSION: Minimally displaced left lateral rib fractures. There is a small complex left pleural effusion which likely represents a component of hemothorax. ACT 112: Negative or not required by law. Electronically signed by: Vini Tobin M.D. 12/07/2022 7:16 PM
[2022-12-07] MEDS ORDERED: MoRPHine SULFATE 2 MG/ML CARP IV STA (19:23)
[2022-12-07] MEDS: SODIUM CHLORIDE 0.9% 1000ML 1,000 ML IV SCH (19:40)
[2022-12-07 20:03] LABS: Basophils # (auto) 0.06 K/uL (0-0.2); Basophils % (auto) 0.5 %; Eosinophils # (auto) 0.83 K/uL (0-0.50); Eosinophils % (auto) 6.4 %; Hematocrit (blood only) 38.5 % (42.0-52.0); Hemoglobin 13.3 g/dl (14.0-18.0); Immature Granulocytes # (auto) 0.05 K/uL (0.01-0.20); Immature Granulocytes % (auto) 0.4 %; Lymphocytes # (auto) 2.06 K/uL (1.2-3.4); Lymphocytes % (auto) 15.9 %; Mean Corpuscular Hemoglobin 32.8 pg (25.0-34.0); Mean Corpuscular Hgb Conc 34.5 g/dL (32.0-36.0); Mean Corpuscular Volume 94.8 fL (80.0-100.0); Mean Platelet Volume 9.7 fL (9.4-12.4); Monocytes # (auto) 1.15 K/uL (0.11-0.59); Monocytes % (auto) 8.9 %; Neutrophils # (auto) 8.79 K/uL (1.40-6.50); Neutrophils % (auto) 67.9 %; Platelet Count 208 K/uL (130-400); RDW Coefficient of Variation 12.1 % (11.5-14.5); RDW Standard Deviation 42.7 fL (36.4-46.3); Red Blood Count 4.06 M/uL (4.70-6.10); White Blood Count 12.94 K/ul (4.8-10.8)
--- NOTE | 2022-12-07 20:04 | Surgery Consultation ---
Date of Consultation December 07, 2022 Assessment & Plan (1) Abrasion of elbow, left: (2) Abrasion of elbow, right: (3) Accidental fall: (4) Rib pain on left side: (5) Hemothorax on left: Plan 87-year-old gentleman presents 2 days after fall on his left side with 2 minimally displaced left-sided rib fractures as well as a small complex hemothorax. He will be admitted to the hospital for observation and monitoring. He will require pain control and aggressive pulmonary toilet with incentive spirometry and early ambulation. Given the small size of the hemothorax, the complex nature, as well as the fact that it happened 2 days ago, no indication for chest tube at this time. We will continue to monitor him while he is in the hospital. History of Present Illness Reason for Consultation: rib fractures and small hemothorax Requesting Physician: ED physician Attending Physician: ED Physician History of Present Illness 87-year-old gentleman presents 2 days following a fall. He was walking downstairs and fell on his left side. He did hit concrete. He did not lose consciousness. He noticed the pain starting the next day and his left side as well as shortness of breath. The pain has increased since that time. He was seen in the ER this evening. CT scan demonstrates minimally displaced left sixth and eighth rib fractures, and a small complex hemothorax. He denies fevers or chills. He denies other complaints. Allergies Allergy/AdvReac Type Severity Reaction Status Date / Time walnut Allergy Severe AFFECTS Verified 11/28/22 11:04 THE LINING OF MOUTH AND THROAT (ITCHY) lidocaine Allergy Mild Rash Verified 11/28/22 11:04 Home Medications Medication Instructions Recorded Confirmed Type multivitamin 1 tab PO QAM 12/28/18 11/28/22 History omega 6-yyc-eke-fish oil 1,000 mg 1 cap PO QAM 12/28/18 11/28/22 History (120 mg-180 mg) capsule (Fish Oil) cholecalciferol (vitamin D3) 25 25 mcg PO QAM 05/16/20 11/28/22 History mcg (1,000 unit) tablet (Vitamin D3) vitamin E 200 unit capsule 200 unit PO QAM 05/16/20 11/28/22 History albuterol sulfate 90 mcg/actuation 2 puff inhalation QID PRN 11/12/21 11/28/22 Rx aerosol inhaler shortness of breath or wheezing #6.7 grams atorvastatin 10 mg tablet 10 mg PO HS #90 tabs 12/09/21 11/28/22 Rx levothyroxine 50 mcg tablet 50 mcg PO DAILY #90 tabs 12/09/21 11/28/22 Rx donepezil 5 mg tablet 5 mg PO DAILY #30 tabs 05/02/22 11/28/22 Rx finasteride 5 mg tablet 5 mg PO DAILY #90 tabs 05/06/22 11/28/22 Rx sertraline 50 mg tablet 50 mg PO DAILY #30 tabs 11/03/22 11/28/22 Rx mirabegron 25 mg tablet,extended 25 mg PO DAILY Urinary urgency 11/04/22 11/28/22 Rx release 24 hr (Myrbetriq) #30 tabs trazodone 50 mg tablet 50 mg PO HS #30 tabs 11/10/22 11/28/22 Rx midodrine 2.5 mg tablet 2.5 mg PO BID #60 tabs 11/28/22 11/28/22 Rx Patient History Medical History Anosmia 2019? Anxiety Basal cell carcinoma of skin Benign neoplasm of colon Cholecystitis Epigastric abdominal pain Fatigue Ongoing issue x 2 yrs, pt has had cardiac workup, neuro eval and uro eval to r/o bladder ca. Hyperlipidemia HZV (herpes zoster virus) post herpetic neuralgia Intractable abdominal pain Lightheadedness AM Memory impairment PCP and pt's feel pt showing signs of dementia, following with neuro now. Orthostatic hypotension Right rotator cuff tendonitis Sensorineural hearing loss of both ears Severe dizziness Negative cardiac and neuro workup. Severe sleep apnea Shingles LEFT EYE-DX'D 5 YRS AGO Sleep disturbances Temporomandibular joint disorder CLICKS-HAS NEVER LOCKED Surgical History H/O umbilical hernia repair (05/31/20) Open Incisional Hernia Repair with Mesh Open Umbilical Hernia Repair with Mesh, excision of skin lesion, Enterolysis Dr. Navas 05/31/2020 History of incisional hernia repair (05/31/20) Open Incisional Hernia Repair with Mesh; - Kranthi Navas, DO Open Umbilical Hernia Repair with Mesh, excision of skin lesion, Enterolysis Dr. Navas 05/31/2020 History of shoulder surgery LEFT Hx of colonoscopy S/P appendectomy PT DENIES Family History Mother , age 73 of an [place] Myocardial infarction Father , age 92 of uncertain cause No problems noted. Other No family history of adverse response to anesthesia No family history of bleeding disorder Denies family history of Ovarian cancer Prostate cancer Breast cancer Colorectal cancer Social History Smoking Status: Never smoker Second Hand Exposure: No; Do You Dip or Chew Tobacco: No; Hx Alcohol Use: No Hx Substance Use: No Preferred Language: Turkish Communication Ability: dementia Communication Ability Comment: VERY HARD OF HEARING-WEARS BILAT AIDES-WILL BRING DOS Visual Impairment: No Limitations Hearing Ability: Use of Hearing Aid Managing Partner Required: No Beliefs That Will Affect Care: None marital status: Current Living Situation: Spouse current occupational status: retired 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, [employer]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 How many Children do You have: 2 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76 Feels Safe at Home: Yes Childhood Exposure to Second-Hand Smoke: No Diet: regular caffeine: Yes (tea rarely) during the past year weight has: remained stable Dental Care, Regularly: Yes Physical Activity Frequency: 3-4 Times per Week Seatbelt Use: always Sunscreen Use: Yes Do you think of yourself as: straight/heterosexual Gender Identity: Male Assistive Devices: None Review of Systems Review of Systems: All systems reviewed & are unremarkable except as noted in HPI & below Physical Exam Constitutional: WD/WN, vitals as above Eyes: PERRL, conjunctivae normal, anicteric sclerae Neck: trachea midline, no thyromegaly no tracheal deviation, no neck crepitus and no anterior neck swelling Respiratory: normal respiratory effort; no respiratory distress and no labored breathing Auscultation: lungs clear to auscultation bilaterally Cardiovascular: Rate/Rhythm: regular rate and regular rhythm Chest (Breasts): Chest: normal inspection of chest Gastrointestinal (Abdomen): Inspection/Auscultation: abdomen normal to inspection; abdomen not distended Percussion/Palpation: abdomen soft; abdomen nontender, no guarding and abdomen not rigid Musculoskeletal: Head/Neck/Chest: + localized rib tenderness (Left lower ribs) Extremities: extremities normal to inspection and strength 5/5 throughout Skin: no rashes, warm and dry Psychiatric: A+Ox3, euthymic affect Results & Data Vital Signs (Past 12 Hours) Vital Signs Temp Pulse Pulse Resp BP Pulse Ox O2 Del Method 12/07/22 19:53 36.9 C 69 19 142/75 H 96 Room Air 12/07/22 19:52 67 93 Room Air 12/07/22 18:19 73 12/07/22 17:58 36.6 C 83 14 99 Room Air Laboratory Results 12/07/22 12/07/22 12/07/22 Range/Units 19:35 19:34 19:34 WBC 12.94 H (4.8-10.8) K/ul RBC 4.06 L (4.70-6.10) M/uL Hgb 13.3 L (14.0-18.0) g/dl Hct 38.5 L (42.0-52.0) % MCV 94.8 (80.0-100.0) fL MCH 32.8 (25.0-34.0) pg MCHC 34.5 (32.0-36.0) g/dL RDW Std Deviation 42.7 (36.4-46.3) fL RDW Coeff of Roby 12.1 (11.5-14.5) % Plt Count 208 (130-400) K/uL MPV 9.7 (9.4-12.4) fL Immature Gran % (Auto) 0.4 % Neut % (Auto) 67.9 % Lymph % (Auto) 15.9 % Dukes % (Auto) 8.9 % Eos % (Auto) 6.4 % Baso % (Auto) 0.5 % Neut # (Auto) 8.79 H (1.40-6.50) K/uL Lymph # (Auto) 2.06 (1.2-3.4) K/uL Dukes # (Auto) 1.15 H (0.11-0.59) K/uL Eos # (Auto) 0.83 H (0-0.50) K/uL Baso # (Auto) 0.06 (0-0.2) K/uL Immature Gran # (Auto) 0.05 (0.01-0.20) K/uL Sodium Pending Potassium Pending Chloride Pending Carbon Dioxide Pending Anion Gap Pending BUN Pending Creatinine Pending Est Cr Clr Drug Dosing Pending Est GFR ( Amer) Pending Est GFR (Non-Af Amer) Pending BUN/Creatinine Ratio Pending Glucose Pending Calcium Pending Total Bilirubin Pending AST Pending ALT Pending Alkaline Phosphatase Pending Troponin I High Sens Pending Total Protein Pending Albumin Pending Globulin Pending Albumin/Globulin Ratio Pending SARS-CoV-2, RNA, NAAT Pending Diagnostic Findings CT chest diagnostic wo con CLINICAL HISTORY: trauma TECHNIQUE: Multidetector row helical CT of the chest was performed. Coronal and sagittal reformations were obtained. Automated dose lowering techniques and/or adjustment according to patient size were utilized for this exam. CT DOSE: 1171.22 mGy.cm Comparison: Comparison is made to CT abdomen pelvis 05/09/2020 FINDINGS: Lungs and pleura: There is a hyperdense, small complex left sided effusion with associated atelectasis. Bronchial wall thickening is noted. Heart and pericardium: Cardiomegaly is seen with biatrial enlargement. Vessels: Moderate atherosclerotic changes in the aorta and coronary arteries. Mediastinum and hakan: Subcentimeter lymph nodes are seen. Chest wall and lower neck: Unremarkable. Abdomen: Patient is status post cholecystectomy. Fatty replacement of the pancreas is partially visualized. Bones: Minimally displaced lateral fractures of the left sixth and eighth ribs. Bone hemangioma is noted in the T12 vertebral body. IMPRESSION: Minimally displaced left lateral rib fractures. There is a small complex left pleural effusion which likely represents a component of hemothorax.
[2022-12-07 20:19] LABS: Albumin Globulin Ratio 1.3 (0.9-2); Albumin Level 3.7 gm/dl (3.4-5.0); BUN Creatinine Ratio 17.9 (10-20); Bilirubin,Total 0.6 mg/dl (0.2-1.0); Creatinine Clr Calc Pharmacy 45.8 ml/min; Est GFR (African American) 68.6 ml/min; Est GFR (Non-African American) 59.2 ml/min; Globulin 2.8 gm/dl (2.5-4.0); Potassium 4.3 mmol/L (3.5-5.1); Total Protein 6.5 gm/dl (6.0-8.3)
[2022-12-07 20:25] LABS: Troponin I High Sensitivity 8.3 pg/ml (0-20)
--- NOTE | 2022-12-07 22:12 | History & Physical Report ---
Date of Service December 07, 2022 Assessment & Plan (1) Left rib fracture: (2) Hemothorax on left: (3) Accidental fall: (4) CHI (closed head injury): (5) Severe sleep apnea: (6) Mixed dementia: (7) Urge incontinence: (8) Ribs, multiple fractures: (9) Hypothyroid: (10) Essential tremor: (11) Sensorineural hearing loss of both ears: (12) Sleep disturbances: (13) Hyperlipidemia: (14) Anxiety: (15) Anosmia: Plan Left hemothorax/multiple left rib fractures- Evaluated by ED and general surgery determined to not need chest tube Unable to apply Lidoderm patch as patient has history of rash Acetaminophen 650 mg every 4 hours as needed for mild pain or fever Lignite 5/325, 1 p.o. every 4 hours as needed for moderate pain Morphine sulfate 1 mg IV every 4 hours as needed for severe pain Consult to general surgery to follow Hyperlipidemia- Continue atorvastatin Dementia/anxiety with depression- Continue donepezil, sertraline and trazodone BPH with LUTS/bladder spasm- Continue finasteride and mirabegron Hypothyroidism- Continue levothyroxine History of Present Illness Chief Complaint: The patient presents to the emergency department after missed judging the bottom step on his stairs, falling, and landing on his left side, sustaining left rib cage pain. Patient did have a mild abrasion on his forehead, suggesting head injury as well. The patient denies loss of consciousness Primary Care Provider: Erika Sequeira MD The patient is a 87-year-old male with a past medical history including orthostatic hypotension, otitis externa, proteinuria, anemia, syncope, severe BERNARDO, mixed dementia, urge incontinence, multiple rib fractures, hypothyroidism, essential tremor, SNHL bilaterally, memory impairment, hyperlipidemia, HZV postherpetic neuralgia, colon polyp, basal cell skin cancer, anxiety and anosmia. Patient presents to the emergency department as noted above. CT scan of chest shows left lateral rib fractures, and a complex left pleural effusion with possible hemothorax Allergies Allergy/AdvReac Type Severity Reaction Status Date / Time walnut Allergy Severe AFFECTS Verified 11/28/22 11:04 THE LINING OF MOUTH AND THROAT (ITCHY) lidocaine Allergy Mild Rash Verified 11/28/22 11:04 Home Medications Medication Instructions Recorded Confirmed Type multivitamin 1 tab PO QAM 12/28/18 12/07/22 History omega 0-tus-iyo-fish oil 1,000 mg 1 cap PO QAM 12/28/18 12/07/22 History (120 mg-180 mg) capsule (Fish Oil) cholecalciferol (vitamin D3) 25 25 mcg PO QAM 05/16/20 12/07/22 History mcg (1,000 unit) tablet (Vitamin D3) albuterol sulfate 90 mcg/actuation 2 puff inhalation QID PRN 11/12/21 12/07/22 Rx aerosol inhaler shortness of breath or wheezing #6.7 grams atorvastatin 10 mg tablet 10 mg PO HS #90 tabs 12/09/21 12/07/22 Rx finasteride 5 mg tablet 5 mg PO DAILY #90 tabs 05/06/22 12/07/22 Rx sertraline 50 mg tablet 50 mg PO DAILY #30 tabs 11/03/22 12/07/22 Rx mirabegron 25 mg tablet,extended 25 mg PO DAILY Urinary urgency 11/04/22 12/07/22 Rx release 24 hr (Myrbetriq) #30 tabs trazodone 50 mg tablet 50 mg PO HS #30 tabs 11/10/22 12/07/22 Rx midodrine 2.5 mg tablet 2.5 mg PO BID #60 tabs 11/28/22 12/07/22 Rx donepezil 10 mg tablet 10 mg PO HS 12/07/22 12/07/22 History levothyroxine 50 mcg tablet 50 mcg PO DAILYBB 12/07/22 12/07/22 History vitamin E acetate 134 mg (200 134 mg PO QAM 12/07/22 12/07/22 History unit) capsule Past Med/Surg History Medical History Anosmia 2019? Anxiety Basal cell carcinoma of skin Benign neoplasm of colon Cholecystitis Epigastric abdominal pain Fatigue Ongoing issue x 2 yrs, pt has had cardiac workup, neuro eval and uro eval to r/o bladder ca. Hyperlipidemia HZV (herpes zoster virus) post herpetic neuralgia Intractable abdominal pain Lightheadedness AM Memory impairment PCP and pt's feel pt showing signs of dementia, following with neuro now. Orthostatic hypotension Right rotator cuff tendonitis Sensorineural hearing loss of both ears Severe dizziness Negative cardiac and neuro workup. Severe sleep apnea Shingles LEFT EYE-DX'D 5 YRS AGO Sleep disturbances Temporomandibular joint disorder CLICKS-HAS NEVER LOCKED Surgical History H/O umbilical hernia repair (05/31/20) Open Incisional Hernia Repair with Mesh Open Umbilical Hernia Repair with Mesh, excision of skin lesion, Enterolysis Dr. Navas 05/31/2020 History of incisional hernia repair (05/31/20) Open Incisional Hernia Repair with Mesh; - Kranthi Navas, DO Open Umbilical Hernia Repair with Mesh, excision of skin lesion, Enterolysis Dr. Navas 05/31/2020 History of shoulder surgery LEFT Hx of colonoscopy S/P appendectomy PT DENIES Family History Mother , age 73 of an [place] Myocardial infarction Father , age 92 of uncertain cause No problems noted. Other No family history of adverse response to anesthesia No family history of bleeding disorder Denies family history of Ovarian cancer Prostate cancer Breast cancer Colorectal cancer Social History Smoking Status: Never smoker Second Hand Exposure: No; Do You Dip or Chew Tobacco: No; Hx Alcohol Use: No Hx Substance Use: No Preferred Language: Syriac Communication Ability: dementia Communication Ability Comment: VERY HARD OF HEARING-WEARS BILAT AIDES-WILL BRING DOS Visual Impairment: No Limitations Hearing Ability: Use of Hearing Aid Valve Maker Required: No Beliefs That Will Affect Care: None marital status: Current Living Situation: Spouse current occupational status: retired 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, [employer]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 How many Children do You have: 2 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76 Feels Safe at Home: Yes Childhood Exposure to Second-Hand Smoke: No Diet: regular caffeine: Yes (tea rarely) during the past year weight has: remained stable Dental Care, Regularly: Yes Physical Activity Frequency: 3-4 Times per Week Seatbelt Use: always Sunscreen Use: Yes Do you think of yourself as: straight/heterosexual Gender Identity: Male Assistive Devices: None Review of Systems Review of Systems: The patient denies chest pain, palpitations, cough, lower extremity swelling, sore throat, fevers, chills, sweats, nausea, vomiting, diarrhea , constipation, abdominal pain, pelvic pain, blood in urine or stool, dysuria, urinary frequency or urgency, lightheadedness, dizziness, headache, loss of consciousness, focal or generalized weakness, numbness or tingling in arms or legs, generalized arthralgias or myalgias, neck pain, or night sweats. The review of systems is otherwise negative other than for that already noted above, and at least 10 systems have been reviewed. Physical Exam Physical Exam: The patient is awake, alert, well developed and well nourished, mild skin abrasion on knees and forehead, lying in bed and in no acute distress. HEENT--PERRL, EOMI, mucous membranes and oropharynx dry. Neck--supple. No JVD. No bruits. Thyroid normal, trachea midline, no adenopathy. Heart--normal S1 and S2. No murmurs, rubs or gallops. Lungs/chest wall--clear bilaterally, no respiratory distress, no accessory muscle use. Reproducible pain over left lateral ribs Abdomen--normal bowel sounds and soft. Nontender. Nondistended, no hernias or masses, no organomegaly. Extremities--no cyanosis or clubbing. No edema. There are good distal pulses b/l. Dermatologic--normal skin turgor, normal color, no abnormal lymph nodes, no rash. Neurologic--cranial nerves II through XII grossly intact. Rheumatologic-exam limited by rib cage pain Psychiatric--normal affect. Results & Data Results & Data Vital Signs (Past 12 Hours) Vital Signs Temp Pulse Pulse Resp BP Pulse Ox O2 Del Method 12/07/22 19:53 36.9 C 69 19 142/75 H 96 Room Air 12/07/22 19:52 67 93 Room Air 12/07/22 18:19 73 12/07/22 17:58 36.6 C 83 14 99 Room Air Laboratory Results Laboratory Results WBC 12.94 K/ul (4.8-10.8) H 12/07/22 19:34 RBC 4.06 M/uL (4.70-6.10) L 12/07/22 19:34 Hgb 13.3 g/dl (14.0-18.0) L 12/07/22 19:34 Hct 38.5 % (42.0-52.0) L 12/07/22 19:34 MCV 94.8 fL (80.0-100.0) 12/07/22 19: MCH 32.8 pg (25.0-34.0) 12/07/22 19: MCHC 34.5 g/dL (32.0-36.0) 12/07/22: RDW Std Deviation 42.7 fL (36.4-46.3) 12/07/22 19: RDW Coeff of Roby 12.1 % (11.5-14.5) 12/07/22: Plt Count 208 K/uL (130-400) 12/07/22: MPV 9.7 fL (9.4-12.4) 12/07/22 19:34 Immature Gran % (Auto) 0.4 % 12/07/22 19:34 Neut % (Auto) 67.9 % 12/07/22 19:34 Lymph % (Auto) 15.9 % 12/07/22 19:34 [place] % (Auto) 8.9 % 12/07/22 19:34 Eos % (Auto) 6.4 % 12/07/22:34 Baso % (Auto) 0.5 % 12/07/22:34 Neut # (Auto) 8.79 K/uL (1.40-6.50) H 12/07/22 19:34 Lymph # (Auto) 2.06 K/uL (1.2-3.4) 12/07/22 19:34 [place] # (Auto) 1.15 K/uL (0.11-0.59) H 12/07/22 19:34 Eos # (Auto) 0.83 K/uL (0-0.50) H 12/07/22 19:34 Baso # (Auto) 0.06 K/uL (0-0.2) 12/07/22:34 Immature Gran # (Auto) 0.05 K/uL (0.01-0.20) 12/07/22 19:34 Sodium 137 mmol/L (136-145) 12/07/22 19:34 Potassium 4.3 mmol/L (3.5-5.1) 12/07/22 19:34 Chloride 104 mmol/L (98-107) 12/07/22 19:34 Carbon Dioxide 28 mmol/L (21-32) 12/07/22 19:34 Anion Gap 5 (3-11) 12/07/22 19:34 BUN 20 mg/dl (6-23) 12/07/22 19:34 Creatinine 1.12 mg/dl (0.6-1.4) 12/07/22 19:34 Est Cr Clr Drug Dosing 45.8 ml/min 12/07/22 19:34 Est GFR ( Amer) 68.6 ml/min 12/07/22 19:34 Est GFR (Non-Af Amer) 59.2 ml/min 12/07/22 19:34 BUN/Creatinine Ratio 17.9 (10-20) 12/07/22 19:34 Glucose 107 mg/dl (70-99(Fasting)) H 12/07/22 19:34 Calcium 9.0 mg/dl (8.6-10.3) 12/07/22 19:34 Total Bilirubin 0.6 mg/dl (0.2-1.0) 12/07/22 19:34 AST 18 U/L (13-39) 12/07/22 19:34 ALT 12 U/L (7-52) 12/07/22 19:34 Alkaline Phosphatase 54 U/L (34-104) 12/07/22 19:34 Troponin I High Sens 8.3 pg/ml (0-20) 12/07/22 19:34 Total Protein 6.5 gm/dl (6.0-8.3) 12/07/22 19:34 Albumin 3.7 gm/dl (3.4-5.0) 12/07/22 19:34 Globulin 2.8 gm/dl (2.5-4.0) 12/07/22 19:34 Albumin/Globulin Ratio 1.3 (0.9-2) 12/07/22 19:34 SARS-CoV-2, RNA, NAAT NEGATIVE (NEGATIVE) 12/07/22 19:[address] 12/07/22 18:21 CT chest diagnostic wo con CLINICAL HISTORY: trauma TECHNIQUE: Multidetector row helical CT of the chest was performed. Coronal and sagittal reformations were obtained. Automated dose lowering techniques and/or adjustment according to patient size were utilized for this exam. CT DOSE: 1171.22 mGy.cm Comparison: Comparison is made to CT abdomen pelvis 05/09/2020 FINDINGS: Lungs and pleura: There is a hyperdense, small complex left sided effusion with associated atelectasis. Bronchial wall thickening is noted. Heart and pericardium: Cardiomegaly is seen with biatrial enlargement. Vessels: Moderate atherosclerotic changes in the aorta and coronary arteries. Mediastinum and hakan: Subcentimeter lymph nodes are seen. Chest wall and lower neck: Unremarkable. Abdomen: Patient is status post cholecystectomy. Fatty replacement of the pancreas is partially visualized. Bones: Minimally displaced lateral fractures of the left sixth and eighth ribs. Bone hemangioma is noted in the T12 vertebral body. IMPRESSION: Minimally displaced left lateral rib fractures. There is a small complex left pleural effusion which likely represents a component of hemothorax. ACT 112: Negative or not required by law. Electronically signed by: iVni Tobin M.D. 12/07/2022 7:[address] 12/07/22 18:21 CT head/brain wo con CLINICAL HISTORY: trauma Technique: Contiguous axial CT images of the head were acquired from the base of the skull to the vertex without intravenous contrast administration. Images were viewed in brain, subdural and bone windows. Automated dose lowering techniques and/or adjustment according to patient size were utilized for this exam. Comparison: Comparison is made to CT head 11/20/2022 Findings: Areas of decreased attenuation are present in the periventricular and subcortical white matter bilaterally consistent with small vessel ischemic disease. Generalized cerebral atrophy with commensurate enlargement of the ventricles, sulci, and cisterns is also present. There is no acute intracranial hemorrhage or evidence of acute territorial infarction. No shift of the midline structures, mass effect, or extra-axial abnormalities are shown. Atherosclerotic calcifications are present in the intracranial segments of the internal carotid arteries. Imaged portions of the paranasal sinuses and mastoid air cells are clear. The orbits appear normal. There are no acute fractures of the calvaria or scalp swelling. Impression: No acute intracranial hemorrhage, no evidence of acute territorial infarction or other acute intracranial disease process. ACT 112: Negative or not required by law. Electronically signed by: Vini Tobin M.D. 12/07/2022 6:58 PM Code Status & VTE Plan Code Status Full code VTE Prophylaxis Plan VTE Prophylaxis will be ordered: Yes PG Care Time/CCT Total # of Minutes Spent Total Time Spent with Patient: Total time spent is greater than 50% in coordination of care (as documented) at patient's floor/unit and/or counseling patient: Coding Level of Care Code 11396 INT INP/OBS CARE 375MIN Diagnoses Left rib fracture S22.32XA Hemothorax on left J94.2 Accidental fall W19.XXXA CHI (closed head injury) S09.90XA Severe sleep apnea G47.30 Mixed dementia G30.9; F01.50; F02.80 Urge incontinence N39.41 Ribs, multiple fractures S22.49XA Hypothyroid E03.9 Essential tremor G25.0 Sensorineural hearing loss of both ears H90.3 Sleep disturbances G47.9 Hyperlipidemia E78.5 Anxiety F41.9 Anosmia R43.0
[2022-12-07] MEDS ORDERED: ACETAMINOPHEN 325 MG TAB PO PRN (22:41)
[2022-12-07] MEDS ORDERED: ONDANSETRON INJ 2 MG/ML 2 ML VIAL IV PRN (22:41)
[2022-12-07] MEDS ORDERED: HYDROCODONE/ACETAMOPHEN 5/325MG TAB PO PRN (22:41)
[2022-12-07] MEDS ORDERED: MoRPHine SULFATE 2 MG/ML CARP IV PRN (22:41)
[2022-12-07] MEDS ORDERED: ALBUTEROL HFA 8 GM INHALER INH PRN (22:41)
[2022-12-08] MEDS: SODIUM CHLORIDE 0.9% 1000ML 1,000 ML IV SCH (04:40)
--- NOTE | 2022-12-08 07:02 | XRay Report ---
SINGLE VIEW CHEST CLINICAL HISTORY: Hemothorax FINDINGS: An AP, portable, upright chest radiograph is compared to study dated 11/20/2022 and correlat ed with chest CT performed earlier the same day dated 12/07/2022. The heart is enlarged noting atheros clerotic calcification of the thoracic aorta. The pulmonary vasculature is noncongested there is a sm all left pleural effusion with left basilar consolidation. Atelectasis is noted at the right lung bas e. No pneumothorax is seen. The skeletal structures are osteopenic. There is a chronic/healed left po sterior rib fracture. Acute left-sided rib fractures seen by CT are not well visualized by x-ray. IMPRESSION: 1. Small left pleural effusion with left basilar consolidation. 2. Left-sided rib fractures seen by CT are not well visualized by x-ray. ACT 112: Negative or not required by law. Electronically signed by: Zbigniew Machado M.D. 12/08/2022 7:01 AM
[2022-12-08] MEDS: LEVOTHYROXINE SODIUM 50 MCG TABLET PO SCH (07:48)
--- NOTE | 2022-12-08 08:41 | Electrocardiogram Report ---
Test Reason : Blood Pressure : / mmHG Vent. Rate : 069 BPM Atrial Rate : 069 BPM P-R Int : 164 ms QRS Dur : 096 ms QT Int : 406 ms P-R-T Axes : 014 -02 015 degrees QTc Int : 435 ms Normal sinus rhythm Normal ECG When compared with ECG of 20-NOV-2022 09:50, No significant change was found Confirmed by Isidro Silva ([id number]) on 12/08/2022 8:40:36 AM Referred By: REFERRED SELF Confirmed By:Bebo Silva
[2022-12-08] MEDS: MIDODRINE HCL 2.5 MG TAB PO SCH ×2 (09:22→15:28)
[2022-12-08] MEDS: FINASTERIDE 5 MG TAB PO SCH (09:22)
[2022-12-08] MEDS: MIRABEGRON ER 25 MG TAB PO SCH (09:22)
[2022-12-08] MEDS: SERTRALINE HCL 50 MG TABLET PO SCH (09:22)
[2022-12-08] MEDS: CHOLECALCIFEROL 1,000 UNITS 25 MCG TAB PO SCH (09:22)
[2022-12-08] MEDS: MULTIVITAMIN TAB PO SCH (09:23)
[2022-12-08] MEDS: OMEGA-3 (PURIFIED FISH OIL) 1 GM CAP PO SCH (09:23)
[2022-12-08] MEDS: TOCOPHERYL, DL-ALPHA 100 UNITS 67 MG CAP PO SCH (09:23)
--- NOTE | 2022-12-08 10:48 | XRay Report ---
XR chest 1V portable HISTORY: 87 years-old Male left hemothorax follow-up study in a patient with left basilar opacity COMPARISON: Chest radiograph and chest CT 12/07/2022 TECHNIQUE: AP view of the chest FINDINGS: Cardiac silhouette is enlarged. No overt pulmonary edema. Lungs are mildly hypoinflated. Small left p leural effusion with persistent left basilar opacities. Degenerative changes of the shoulders and spi ne. IMPRESSION: 1. Unchanged small left pleural effusion with left basilar consolidation. 2. Acute left-sided rib fractures seen by CT are not well visualized by radiography. 3. No pneumothorax identified. ACT 112: Negative or not required by law. The above report was generated using voice recognition software. It may contain grammatical, syntax o r spelling errors. Electronically signed by: Richard Live M.D. 12/08/2022 10:47 AM
--- NOTE | 2022-12-08 11:02 | Surgery Progress Note ---
Date of Service December 08, 2022 Assessment & Plan (1) Abrasion of elbow, left: (2) Abrasion of elbow, right: (3) Accidental fall: (4) Rib pain on left side: (5) Hemothorax on left: Plan 87-year-old gentleman presents 2 days after fall on his left side with 2 minimally displaced left-sided rib fractures as well as a small complex hemothorax. He will be admitted to the hospital for observation and monitoring. Admission and Anticipated Discharge Date Admission Date: December 07, 2022 Subjective Slightly confused today. Still complains of pain in his left anterior chest wall. No nausea/vomiting. He is on room air. Physical Exam Respiratory: normal respiratory effort; no respiratory distress and no labored breathing Cardiovascular: Rate/Rhythm: regular rate and regular rhythm Chest (Breasts): Chest: normal inspection of chest Musculoskeletal: Head/Neck/Chest: + localized rib tenderness (Left lower ribs) Extremities: extremities normal to inspection Skin: no rashes, warm and dry Results & Data Vital Signs (Past 12 Hours) Vital Signs Temp Pulse Pulse Resp BP Pulse Ox O2 Del Method 12/08/22 07:50 71 12/08/22 07:34 36.5 C 67 18 159/81 H 91 Room Air 12/08/22 07:42 36.5 C 69 20 159/81 H 90 Room Air 12/08/22 07:04 Room Air 12/08/22 06:43 68 20 161/80 H 91 Room Air 12/08/22 06:00 67 16 92 Room Air
--- NOTE | 2022-12-08 15:14 | Hospitalist Progress Note ---
Date of Service December 08, 2022 Assessment & Plan (1) Left rib fracture: Plan: Multiple left rib fractures suffered in a mechanical fall. He has a associated small left hemothorax. Surgery consultation appreciated. No intervention necessary at this time. Continue incentive spirometry and pain control measures. He is on room air at this time. (2) Hemothorax on left: Plan: Repeat chest x-ray today, December 08, is stable. Surgery consultation appreciated. No intervention necessary at this time (3) Accidental fall: Plan: OT and PT assessments requested (4) CHI (closed head injury): Plan: The patient is not suffering from headaches nor has any evidence of concussion at this time (5) Severe sleep apnea: Plan: Stable. Continue supportive care (6) Mixed dementia: Plan: Stable. Supportive care. (7) Urge incontinence: Plan: Stable. No intervention necessary at this time. (8) Ribs, multiple fractures: Plan: 2 left rib fractures suffered a mechanical fall. Pain control measures. (9) Hypothyroid: Plan: Continue thyroid replacement therapy (10) Hyperlipidemia: Plan: Stable. Continue current medical management Plan Await OT and PT assessment results. Hopeful discharge to home tomorrow, December 09 , if stable Admission and Anticipated Discharge Date Admission Date: December 07, 2022 Subjective Alert. No acute distress. Case discussed with surgery. No intervention necessary at this time. Repeat portable chest x-ray today is stable. OT and PT assessments requested. Will repeat lab studies again tomorrow. He remains on room air at this time. Incentive spirometry has been ordered Review of Systems Review of Systems: Constitutional-no fever or chills ENT-no blurred vision, no double vision, no epistaxis, no sore throat Respiratory-no cough, no wheezing, no shortness of breath. Inspiratory left rib pain has resolved Cardiac-no palpitations, no chest pain, no syncope GI-no nausea, vomiting, diarrhea, melena, hematochezia -no urinary retention, no urinary incontinence, no dysuria, no hematuria Musculoskeletal-no joint pain, no muscle tenderness Skin-no bruising, no rashes, no pruritus Neuro-no isolated weakness, no paresthesia, no weakness Psych-no depression, no anxiety Physical Exam Physical Exam: General-alert and oriented x3, no fevers, no chills HEENT-head atraumatic and normocephalic, pupils equal and reactive to light, extraocular muscles intact Neck-no lymphadenopathy or thyromegaly, trachea midline Chest-diminished breath sounds and dullness at the left base. No wheezing. No rhonchi. Cardiac-regular rate and rhythm, normal S1 and S2 Abdomen-normal bowel sounds, nontender, no hepatosplenomegaly Extremities-no cyanosis, clubbing, or edema Neuro-cranial nerves II through XII intact, motor and sensory function within normal limits, strength symmetrical , no focal deficits Psych-normal affect, normal mood Results & Data Results & Data Vital Signs (Past 12 Hours) Vital Signs Temp Pulse Pulse Resp BP Pulse Ox O2 Del Method 12/08/22 11:54 36.6 C 71 20 176/86 H 91 Room Air 12/08/22 07:50 71 12/08/22 07:34 36.5 C 67 18 159/81 H 91 Room Air 12/08/22 07:42 36.5 C 69 20 159/81 H 90 Room Air 12/08/22 07:04 Room Air 12/08/22 06:43 68 20 161/80 H 91 Room Air 12/08/22 06:00 67 16 92 Room Air Laboratory Results 12/07/22 19:34 12/07/22 19:34 PG Care Time/CCT Total # of Minutes Spent Total Time Spent with Patient: Total time spent is greater than 50% in coordination of care (as documented) at patient's floor/unit and/or counseling patient: Coding Level of Care Code 38976 SUB INP/OBS CARE 3/50MIN Diagnoses Left rib fracture S22.32XA Hemothorax on left J94.2 Accidental fall W19.XXXA CHI (closed head injury) S09.90XA Severe sleep apnea G47.30 Mixed dementia G30.9; F01.50; F02.80 Urge incontinence N39.41 Ribs, multiple fractures S22.49XA Hypothyroid E03.9 Hyperlipidemia E78.5
[2022-12-08] MEDS ORDERED: DONEPEZIL HCL 10 MG TAB PO SCH (21:00)
[2022-12-08] MEDS ORDERED: ATORVASTATIN 10 MG TAB PO SCH (21:00)
[2022-12-08] MEDS ORDERED: traZODone HCL 50 MG TAB PO SCH (21:00)
[2022-12-09] MEDS: LEVOTHYROXINE SODIUM 50 MCG TABLET PO SCH (06:04)
[2022-12-09 07:24] LABS: Basophils # (auto) 0.05 K/uL (0-0.2); Basophils % (auto) 0.4 %; Eosinophils # (auto) 0.86 K/uL (0-0.50); Eosinophils % (auto) 6.5 %; Hematocrit (blood only) 38.6 % (42.0-52.0); Hemoglobin 13.7 g/dl (14.0-18.0); Immature Granulocytes # (auto) 0.04 K/uL (0.01-0.20); Immature Granulocytes % (auto) 0.3 %; Lymphocytes # (auto) 2.08 K/uL (1.2-3.4); Lymphocytes % (auto) 15.7 %; Mean Corpuscular Hemoglobin 32.5 pg (25.0-34.0); Mean Corpuscular Hgb Conc 35.5 g/dL (32.0-36.0); Mean Corpuscular Volume 91.5 fL (80.0-100.0); Mean Platelet Volume 9.8 fL (9.4-12.4); Monocytes % (auto) 8.3 %; Neutrophils # (auto) 9.12 K/uL (1.40-6.50); Neutrophils % (auto) 68.8 %; Platelet Count 234 K/uL (130-400); RDW Standard Deviation 40.6 fL (36.4-46.3); Red Blood Count 4.22 M/uL (4.70-6.10); White Blood Count 13.25 K/ul (4.8-10.8)
[2022-12-09 07:33] LABS: BUN Creatinine Ratio 18.2 (10-20); Calcium 9.1 mg/dl (8.6-10.3); Creatinine Clr Calc Pharmacy 51.8 ml/min; Est GFR (African American) 79.6 ml/min; Est GFR (Non-African American) 68.7 ml/min
--- NOTE | 2022-12-09 10:17 | Surgery Progress Note ---
Date of Service December 09, 2022 Assessment & Plan (1) Abrasion of elbow, left: (2) Abrasion of elbow, right: (3) Accidental fall: (4) Rib pain on left side: (5) Hemothorax on left: Plan 87-year-old gentleman presents 2 days after fall on his left side with 2 minimally displaced left-sided rib fractures as well as a small complex hemothorax. Stable left pleural effusion/hemothorax on CXR 12/08/2022, currently on room air, hgb stable. Plan: No surgical intervention required continue pain management and incentive spirometry PT/OT Discussed with dr. portillo who agrees with above. Admission and Anticipated Discharge Date Admission Date: December 07, 2022 Subjective still confused but pleasant. Sleeping in bed when entering room, easily wakes up to name being called left chest/rib pain improving no shortness of breath Physical Exam Constitutional: cooperative and comfortable; no acute distress, not ill appearing and not combative Respiratory: normal respiratory effort, lungs clear to auscultation normal respiratory effort; no respiratory distress, no labored breathing, no retractions and no cough Musculoskeletal: Head/Neck/Chest: + chest tenderness (left anterior chest) and + localized rib tenderness Extremities: extremities normal to inspection Psychiatric: Orientation: alert; + not oriented x 3 Results & Data Vital Signs (Past 12 Hours) Vital Signs Temp Pulse Pulse Resp BP Pulse Ox Pulse Ox 12/09/22 07:56 36.6 C 73 19 141/78 H 91 12/09/22 07:14 94 H 12/09/22 04:51 36.5 C 78 18 158/87 H 95 12/08/22 23:00 94 12/08/22 23:58 71 12/08/22 23:00 36.6 C 73 22 133/72 91 O2 Del Method O2 Del Method 12/09/22 07:56 Room Air 12/09/22 07:14 12/09/22 04:51 Room Air 12/08/22 23:00 Room Air 12/08/22 23:58 12/08/22 23:00 Room Air Laboratory Results 12/09/22 12/09/22 12/08/22 Range/Units 06:20 06:20 18:47 WBC 13.25 H (4.8-10.8) K/ul RBC 4.22 L (4.70-6.10) M/uL Hgb 13.7 L (14.0-18.0) g/dl Hct 38.6 L (42.0-52.0) % MCV 91.5 (80.0-100.0) fL MCH 32.5 (25.0-34.0) pg MCHC 35.5 (32.0-36.0) g/dL RDW Std Deviation 40.6 (36.4-46.3) fL RDW Coeff of [place] 12.0 (11.5-14.5) % Plt Count 234 (130-400) K/uL MPV 9.8 (9.4-12.4) fL Immature Gran % (Auto) 0.3 % Neut % (Auto) 68.8 % Lymph % (Auto) 15.7 % [place] % (Auto) 8.3 % Eos % (Auto) 6.5 % Baso % (Auto) 0.4 % Neut # (Auto) 9.12 H (1.40-6.50) K/uL Lymph # (Auto) 2.08 (1.2-3.4) K/uL [place] # (Auto) 1.10 H (0.11-0.59) K/uL Eos # (Auto) 0.86 H (0-0.50) K/uL Baso # (Auto) 0.05 (0-0.2) K/uL Immature Gran # (Auto) 0.04 (0.01-0.20) K/uL Sodium 139 (136-145) mmol/L Potassium 4.0 (3.5-5.1) mmol/L Chloride 106 (98-107) mmol/L Carbon Dioxide 25 (21-32) mmol/L Anion Gap 8 (3-11) BUN 18 (6-23) mg/dl Creatinine 0.99 (0.6-1.4) mg/dl Est Cr Clr Drug Dosing 51.8 ml/min Est GFR ( Amer) 79.6 ml/min Est GFR (Non-Af Amer) 68.7 ml/min BUN/Creatinine Ratio 18.2 (10-20) Glucose 95 (70-99(Fasting)) mg/dl POC Glucose 115 H (70-99) mg/dl Calcium 9.1 (8.6-10.3) mg/dl Diagnostic Findings XR chest 1V portable 12/08/2022 HISTORY: 87 years-old Male left hemothorax follow-up study in a patient with left basilar opacity COMPARISON: Chest radiograph and chest CT 12/07/2022 TECHNIQUE: AP view of the chest FINDINGS: Cardiac silhouette is enlarged. No overt pulmonary edema. Lungs are mildly hypoinflated. Small left pleural effusion with persistent left basilar opacities. Degenerative changes of the shoulders and spine. IMPRESSION: 1. Unchanged small left pleural effusion with left basilar consolidation. 2. Acute left-sided rib fractures seen by CT are not well visualized by radiography. 3. No pneumothorax identified.
[2022-12-09] MEDS: TOCOPHERYL, DL-ALPHA 100 UNITS 67 MG CAP PO SCH (10:43)
[2022-12-09] MEDS: FINASTERIDE 5 MG TAB PO SCH (10:43)
[2022-12-09] MEDS: SERTRALINE HCL 50 MG TABLET PO SCH (10:43)
[2022-12-09] MEDS: MULTIVITAMIN TAB PO SCH (10:44)
[2022-12-09] MEDS: MIDODRINE HCL 2.5 MG TAB PO SCH (10:44)
[2022-12-09] MEDS: OMEGA-3 (PURIFIED FISH OIL) 1 GM CAP PO SCH (10:44)
[2022-12-09] MEDS: CHOLECALCIFEROL 1,000 UNITS 25 MCG TAB PO SCH (10:44)
[2022-12-09] MEDS: MIRABEGRON ER 25 MG TAB PO SCH (10:44)
--- NOTE | 2022-12-09 11:07 | Discharge Summary ---
Date of Service December 09, 2022 Admission HPI Per Admitting Provider The patient is a 87-year-old male with a past medical history including orthostatic hypotension, otitis externa, proteinuria, anemia, syncope, severe BERNARDO, mixed dementia, urge incontinence, multiple rib fractures, hypothyroidism, essential tremor, SNHL bilaterally, memory impairment, hyperlipidemia, HZV postherpetic neuralgia, colon polyp, basal cell skin cancer, anxiety and anosmia. Patient presents to the emergency department as noted above. CT scan of chest shows left lateral rib fractures, and a complex left pleural effusion with possible hemothorax Principal Diagnosis Mechanical fall with left hemothorax, multiple left rib fractures, closed head injury Discharge Exam General-alert and oriented x3, no fevers, no chills HEENT-head atraumatic and normocephalic, pupils equal and reactive to light, extraocular muscles intact Neck-no lymphadenopathy or thyromegaly, trachea midline Chest-diminished breath sounds and dullness at the left base. No wheezing. No rhonchi. Cardiac-regular rate and rhythm, normal S1 and S2 Abdomen-normal bowel sounds, nontender, no hepatosplenomegaly Extremities-no cyanosis, clubbing, or edema Neuro-cranial nerves II through XII intact, motor and sensory function within normal limits, strength symmetrical , no focal deficits Psych-normal affect, normal mood Discharge Data Allergies Allergy/AdvReac Type Severity Reaction Status Date / Time walnut Allergy Severe AFFECTS Verified 11/28/22 11:04 THE LINING OF MOUTH AND THROAT (ITCHY) lidocaine Allergy Mild Rash Verified 11/28/22 11:04 Consultations 12/07/22 20:37 Consult General Surgery Stat ED Decision to Admit Stat Ordered Studies 12/07/22 18:21 CT chest diagnostic wo con Stat CT head/brain wo con Stat Hospital Course (1) Left rib fracture: Multiple left rib fractures suffered in a mechanical fall. He has a associated small left hemothorax. Surgery consultation appreciated. No intervention necessary at this time. Continue incentive spirometry and pain control measures. He is on room air at this time. Chest x-ray done today, December 09, is stable (2) Hemothorax on left: Repeat chest x-ray today, December 09, is stable. Surgery consultation appreciated. No intervention necessary at this time (3) Accidental fall: OT and PT while hospitalized (4) CHI (closed head injury): The patient is not suffering from headaches nor has any evidence of concussion at this time (5) Severe sleep apnea: Stable. Continue supportive care (6) Mixed dementia: Stable. Supportive care. (7) Urge incontinence: Stable. No intervention necessary at this time. (8) Ribs, multiple fractures: 2 left rib fractures suffered a mechanical fall. Pain control measures. (9) Hypothyroid: Continue thyroid replacement therapy (10) Hyperlipidemia: Stable. Continue current medical management Plan Home today, December 09 Total Time Total Time Spent Total Time Spent (In Minutes): 45 minutes Discharge Plan Discharge Items Patient Disposition: Home - Self-Care Reason For Visit: LEFT RIB FX'S, LEFT PLEURAL EFFUSION, HEMOTHORAX Discharge Diagnosis: Mechanical fall, multiple left rib fractures, left hemothorax, closed head injury Activity: Resume your previous activity Non-emergency contact: Primary Care Provider Call non-emergency contact if: your symptoms worsen Follow-up/Referrals: Erika Sequeira MD [Primary Care Provider] - Diet: Regular and Heart Healthy Addtl Attending Provider Instructions: All medications remain the same Pending Studies at Discharge: No Stand-Alone Forms: My [facility] [employer], Smoking Cessation Medications and DC Order Prescriptions: Continued atorvastatin 10 mg tablet 10 mg PO HS Qty: 90 3RF sertraline 50 mg tablet 50 mg PO DAILY Qty: 30 8RF trazodone 50 mg tablet 50 mg PO HS Qty: 30 0RF albuterol sulfate 90 mcg/actuation HFA aerosol inhaler 2 puff inhalation QID PRN (Reason: shortness of breath or wheezing) Qty: 6.7 0RF midodrine 2.5 mg tablet 2.5 mg PO BID Qty: 60 0RF Rx Instructions: do not give last dose of day after 6PM or within 4 hrs of bedtime finasteride 5 mg tablet 5 mg PO DAILY Qty: 90 3RF Myrbetriq 25 mg tablet extended release 24 hr 25 mg PO DAILY Qty: 30 2RF Rx Instructions: Take one tablet daily. multivitamin Tablet 1 tab PO QAM omega 5-pdu-khe-fish oil [Fish Oil] 1,000 mg (120 mg-180 mg) Capsule 1 cap PO QAM cholecalciferol (vitamin D3) [Vitamin D3] 25 mcg (1,000 unit) Tablet 25 mcg PO QAM donepezil 10 mg tablet 10 mg PO HS vitamin E acetate 134 mg (200 unit) Capsule 134 mg PO QAM levothyroxine 50 mcg tablet 50 mcg PO DAILYBB Discharge Orders: Discharge Order (Routine); Ordered 12/09/22 Ordered By: Trino Dorado Admission Data Admit Date/Time: 12/07/22 22:11 Attending Provider: Trino Dorado Admit Provider: Nii Bennett Primary Care Provider: Erika Sequeira Other Providers: Carlo Presley ; Nii Bennett Coding Level of Care Code 26409 INP/OBS DISCH >30 MIN Diagnoses Left rib fracture S22.32XA Hemothorax on left J94.2 Accidental fall W19.XXXA CHI (closed head injury) S09.90XA Severe sleep apnea G47.30 Mixed dementia G30.9; F01.50; F02.80 Urge incontinence N39.41 Ribs, multiple fractures S22.49XA Hypothyroid E03.9 Hyperlipidemia E78.5
--- NOTE | 2022-12-09 11:10 | XRay Report ---
SINGLE VIEW CHEST CLINICAL HISTORY: Hemothorax FINDINGS: An AP, portable, upright chest radiograph is compared to study dated 12/08/2022 and correlat ed with chest CT performed earlier the same day dated 12/07/2022. The heart is enlarged noting atheros clerotic calcification of the thoracic aorta. The pulmonary vasculature is noncongested. There is a s mall left pleural effusion with left basilar consolidation. Atelectasis is noted at the right lung ba se. No pneumothorax is seen. The skeletal structures are osteopenic. There is a chronic/healed left p osterior rib fracture. Acute left-sided rib fractures seen by CT are not well visualized by x-ray. IMPRESSION: 1. Small left pleural effusion with left basilar consolidation. No significant change from yesterday. 2. Left-sided rib fractures seen by CT are not well visualized by x-ray. ACT 112: Negative or not required by law. Electronically signed by: Zbigniew Machado M.D. 12/09/2022 11:08 AM
== END 2022-12-09 12:36 | disposition home or self-care (01) | DRG 183 ==
LOC: ED 17:54 → SUATTDRO 22:11 → INTOOBSV 22:11 → EDINP 22:11 → 2S 12-08 07:04

== ENCOUNTER 2023-04-01 11:41 | Observation (INO) ==
[2023-04-01 13:01] LABS: Basophils # (auto) 0.03 K/uL (0.00-0.20); Basophils % (auto) 0.2 %; Eosinophils # (auto) 0.89 K/uL (0.00-0.50); Eosinophils % (auto) 5.5 %; Hematocrit (blood only) 41.7 % (42.0-52.0); Hemoglobin 14.4 g/dl (14.0-18.0); Immature Granulocytes # (auto) 0.17 K/uL (0.01-0.20); Mean Corpuscular Hgb Conc 34.5 g/dL (32.0-36.0); Mean Corpuscular Volume 92.7 fL (80.0-100.0); Mean Platelet Volume 9.5 fL (9.4-12.4); Monocytes # (auto) 1.24 K/uL (0.11-0.59); Monocytes % (auto) 7.6 %; Neutrophils # (auto) 11.33 K/uL (1.40-6.50); Neutrophils % (auto) 69.7 %; Platelet Count 245 K/uL (130-400); RDW Coefficient of Variation 13.4 % (11.5-14.5); RDW Standard Deviation 45.4 fL (36.4-46.3); White Blood Count 16.26 K/ul (4.8-10.8)
[2023-04-01 13:10] LABS: Partial Thromboplastin Ratio 0.9; Partial Thromboplastin Time 24.2 Seconds (21.0-31.0); Prothrombin Time 10.5 Seconds (9.0-12.0)
--- NOTE | 2023-04-01 13:10 | Emergency Department Note ---
Impression & Plan Bilateral pleural effusion, Cough, SOB (shortness of breath) ED Provider Note NAME: FAHEEM MCGREGOR AGE: 87 SEX: M : 1935 ARRIVES VIA: Walk-In INFORMANT: Patient, ED PROVIDER(S): Franklin Jeter DO CHIEF COMPLAINT: Cough HPI: The patient is an 87-year-old male who presented to the emergency department from his family doctor's office for an evaluation of cough. The patient was experiencing cough over the course the last month but this became worse over the last week. The patient denies having any fever or hemoptysis. The patient denies having any lower extremity swelling or pain. He does complain of chest pain with cough. He states the symptoms have been ongoing for greater than 24 hours. He was told to go to the emergency department for laboratory studies. The patient does complain of dizziness and lightheadedness. ROS: See above HPI for pertinent positives & negatives. A total of 10 systems reviewed and were otherwise negative. PAST MEDICAL HISTORY: See Below PAST SURGICAL HISTORY: See Below FAMILY HISTORY: See Below SOCIAL HISTORY: See Below HOME MEDICATIONS: See Below ALLERGIES: See Below VITALS: See Below PHYSICAL EXAMINATION: GENERAL: Patient is awake alert in no acute distress patient is resting comfortably and showing no signs of anxiety EYES: The conjunctivae are clear. The pupils are round and reactive. EARS, NOSE, MOUTH AND THROAT: The nose is without any evidence of any deformity. NECK: The neck is nontender and supple. RESPIRATORY: Diminished sounds are noted throughout. There is no tachypnea or conversational dyspnea. CARDIOVASCULAR: Regular rate and rhythm noted there no murmurs rubs or gallops normal S1 normal S2. GASTROINTESTINAL: The abdomen is soft. Abdomen is nontender. MUSCULOSKELETAL/EXTREMITIES: There is no evidence of gross deformity full range of motion is noted in the hips and shoulders. SKIN: There is no obvious evidence of any rash. There are no petechiae, pallor or cyanosis noted. NEUROLOGIC: Patient is awake alert and oriented x3 MEDICAL DECISION MAKING: The patient is an 87-year-old male who presented to the emergency department for an evaluation of difficulty breathing and cough. The patient was sent to the emergency department by his primary care physician for further evaluation. The patient was not hypoxic but had significant shortness of breath especially with any exertion. He was placed on nasal cannula oxygen. He was feeling much better. The patient was found to have worsening pleural effusions. I do feel this requires further work-up. He does not appear to be getting referral to a specialist as an outpatient so I did discuss this case with the on-call [facility] hospitalist. They have agreed to evaluate the patient in the emergency department for further management and disposition. I discussed patient's condition with him. He was agreeable to inpatient management. Triage Nursing notes reviewed. Prior medical records reviewed Vital Signs: reviewed and remarkable for no significant abnormalities Differential diagnosis: Reactive airway disease, pneumonia, pneumothorax, COPD, CHF, infections, cardiac ischemia, pulmonary embolism, musculoskeletal, gastrointestinal, as well as other pathologies. ER treatment provided: See below Diagnostics interpreted by me: ECG: EKG was obtained in the emergency department. My interpretation is normal sinus rhythm at 74 bpm. There is no ectopy. There is no acute ST segment abnormalities noted. This was compared to a tracing from December 07, 2022. No changes were noted. Cardiac Monitoring: An order was placed for continuous cardiac monitoring. The monitor shows a rate of 73 bpm with sinus rhythm. Laboratory studies: As stated above and show below. Imaging studies: See below. Radiographic imaging was reviewed by myself Consultation(s): I discussed this case with Dr. Landers who is on-call for the [facility] italist group. Past Med/Surg History Medical History Anosmia 2019? Anxiety Basal cell carcinoma of skin Benign neoplasm of colon Cholecystitis Epigastric abdominal pain Essential tremor Fatigue Ongoing issue x 2 yrs, pt has had cardiac workup, neuro eval and uro eval to r/o bladder ca. Hyperlipidemia Hypothyroid HZV (herpes zoster virus) post herpetic neuralgia Intractable abdominal pain Memory impairment PCP and pt's feel pt showing signs of dementia, following with neuro now. Mixed dementia Orthostatic hypotension Ribs, multiple fractures Right rotator cuff tendonitis Sensorineural hearing loss of both ears Severe dizziness Negative cardiac and neuro workup. Severe sleep apnea Shingles LEFT EYE-DX'D 5 YRS AGO Sleep disturbances Temporomandibular joint disorder CLICKS-HAS NEVER LOCKED Urge incontinence Surgical History H/O umbilical hernia repair (05/31/20) Open Incisional Hernia Repair with Mesh Open Umbilical Hernia Repair with Mesh, excision of skin lesion, Enterolysis Dr. Navas 05/31/2020 History of eye surgery right eye 12/10/22 History of incisional hernia repair (05/31/20) Open Incisional Hernia Repair with Mesh; - Kranthi Navas, Open Umbilical Hernia Repair with Mesh, excision of skin lesion, Enterolysis Dr. Navas 05/31/2020 History of shoulder surgery LEFT Hx of colonoscopy S/P appendectomy PT DENIES Family History Mother , age 73 of an [place] Myocardial infarction Father , age 92 of uncertain cause No problems noted. 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 Required: No Beliefs That Will Affect Care: None marital status: Current Living Situation: Spouse current occupational status: retired 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, [employer] How many Children do You have: 2 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76 Feels Safe at Home: Yes Childhood Exposure to Second-Hand Smoke: No Diet: regular caffeine: Yes (tea rarely) during the past year weight has: remained stable Dental Care, Regularly: Yes Physical Activity Frequency: 3-4 Times per Week Seatbelt Use: always Sunscreen Use: Yes Do you think of yourself as: straight/heterosexual Gender Identity: Male Assistive Devices: None Allergies Allergies Allergy/AdvReac Type Severity Reaction Status Date / Time walnut Allergy Severe AFFECTS Verified 04/01/23 17:14 THE LINING OF MOUTH AND THROAT (ITCHY) lidocaine Allergy Mild Rash Verified 04/01/23 17:14 Home Meds Home Medications Medication Instructions Recorded Confirmed multivitamin 1 tab PO QAM 06/04/19 09/06/23 omega 6-ssu-moa-fish oil 1,000 mg 1 cap PO QAM 12/28/18 04/01/23 (120 mg-180 mg) capsule (Fish Oil) cholecalciferol (vitamin D3) 25 25 mcg PO QAM 05/16/20 04/01/23 mcg (1,000 unit) tablet (Vitamin D3) donepezil 10 mg tablet 10 mg PO HS 12/07/22 04/01/23 levothyroxine 50 mcg tablet 50 mcg PO DAILYBB 12/07/22 04/01/23 vitamin E acetate 134 mg (200 134 mg PO QAM 12/07/22 04/01/23 unit) capsule Previous Rx's Medication Instructions Recorded finasteride 5 mg tablet 5 mg PO DAILY #90 tabs 05/06/22 sertraline 50 mg tablet 50 mg PO DAILY #30 tabs 11/03/22 mirabegron 25 mg tablet,extended 25 mg PO DAILY Urinary urgency 11/04/22 release 24 hr (Myrbetriq) #30 tabs atorvastatin 10 mg tablet 10 mg PO HS #90 tabs 01/12/23 midodrine 2.5 mg tablet 2.5 mg PO BID #60 tabs 01/28/23 albuterol sulfate 90 mcg/actuation 2 puff inhalation QID PRN 02/09/23 aerosol inhaler shortness of breath or wheezing #6.7 grams Wheeled Walker #1 ea 03/13/23 albuterol sulfate 2.5 mg/3 mL 2.5 mg (3 mL) inhalation QID PRN 03/23/23 (0.083 %) solution for nebulization shortness of breath or wheezing #75 mL amoxicillin 500 mg-potassium 1 tab PO BID #20 tabs 03/23/23 clavulanate 125 mg tablet (Augmentin) trazodone 50 mg tablet 50 mg PO HS #30 tabs 03/25/23 Results & Data (ED) Vital Signs Vital Signs - 24 hr 04/01/23 11:43 04/01/23 17:18 04/01/23 17:34 Temperature 37 C Temperature Source Temporal Artery Scan Pulse Rate 73 70 Pulse Rate [Apical] 70 Respiratory Rate 16 18 Respiratory Effort / Characteristics Non-Labored Respiratory Depth Normal Normal Respiratory Pattern Regular Blood Pressure 124/73 Blood Pressure [Right Arm] 143/77 H Blood Pressure Mean 90 Blood Pressure Mean [Right Arm] 99 Blood Pressure Position [Right Arm] Lying Pulse Oximetry 92 92 Oxygen Delivery Method Room Air Room Air Sepsis Recent Fever Within 48 Hours No Sepsis New/Unexplained Change in Mental Status No Sepsis Action Taken by Nursing No Action Required Home Medications Current Medication List: was personally reviewed by me Laboratory Data Attestation: I reviewed the patient's lab results. 04/01/23 12:36 04/01/23 12:36 Lab Results 04/01/23 04/01/23 04/01/23 Range/Units 12:36 12:36 12:36 WBC 16.26 H (4.8-10.8) K/ul RBC 4.50 L (4.70-6.10) M/uL Hgb 14.4 (14.0-18.0) g/dl Hct 41.7 L (42.0-52.0) % MCV 92.7 (80.0-100.0) fL MCH 32.0 (25.0-34.0) pg MCHC 34.5 (32.0-36.0) g/dL RDW Std Deviation 45.4 (36.4-46.3) fL RDW Coeff of Roby 13.4 (11.5-14.5) % Plt Count 245 (130-400) K/uL MPV 9.5 (9.4-12.4) fL Immature Gran % (Auto) 1.0 % Neut % (Auto) 69.7 % Lymph % (Auto) 16.0 % Candler % (Auto) 7.6 % Eos % (Auto) 5.5 % Baso % (Auto) 0.2 % Neut # (Auto) 11.33 H (1.40-6.50) K/uL Lymph # (Auto) 2.60 (1.20-3.40) K/uL Candler # (Auto) 1.24 H (0.11-0.59) K/uL Eos # (Auto) 0.89 H (0.00-0.50) K/uL Baso # (Auto) 0.03 (0.00-0.20) K/uL Immature Gran # (Auto) 0.17 (0.01-0.20) K/uL PT 10.5 (9.0-12.0) Seconds INR 1.0 (0.9-1.1) APTT 24.2 (21.0-31.0) Seconds PTT Ratio 0.9 Sodium 137 (136-145) mmol/L Potassium 4.4 (3.5-5.1) mmol/L Chloride 102 (98-107) mmol/L Carbon Dioxide 28 (21-32) mmol/L Anion Gap 7 (3-11) BUN 27 H (6-23) mg/dl Creatinine 1.29 (0.6-1.4) mg/dl Est Cr Clr Drug Dosing 39.8 ml/min Est GFR ( Amer) 57.8 ml/min Est GFR (Non-Af Amer) 49.9 ml/min BUN/Creatinine Ratio 20.9 H (10-20) Glucose 83 (70-99(Fasting)) mg/dl Calcium 9.8 (8.6-10.3) mg/dl Total Bilirubin 1.0 (0.2-1.0) mg/dl AST 17 (13-39) U/L ALT 18 (7-52) U/L Alkaline Phosphatase 50 (34-104) U/L Troponin I High Sens (0-20) pg/ml B-Natriuretic Peptide (0-100) pg/ml Total Protein 7.2 (6.0-8.3) gm/dl Albumin 3.6 (3.4-5.0) gm/dl Globulin 3.6 (2.5-4.0) gm/dl Albumin/Globulin Ratio 1.0 (0.9-2) Procalcitonin (0-0.5) ng/ml Urine Color Urine Appearance (Clear) Urine pH (4.5-7.5) Ur Specific Gattman (1.000-1.030) Urine Protein (Negative) Urine Glucose (UA) (Negative) Urine Ketones (Negative) Urine Blood (Negative) Urine Nitrite (Negative) Urine Bilirubin (Negative) Urine Urobilinogen (Negative) Ur Leukocyte Esterase (Negative) Urine WBC (Auto) (0-5) /hpf Urine RBC (Auto) (0-4) /hpf U Hyaline Cast (Auto) (0-5) /lpf U Epithel Cells (Auto) (0-5) /lpf Urine Bacteria (Auto) (Negative) SARS-CoV-2 (PCR) (Negative) Influenza Type A (PCR) (Neg) Influenza Type B (PCR) (Neg) RSV (RT-PCR) (Neg) 04/01/23 04/01/23 04/01/23 Range/Units 12:36 12:36 16:25 WBC (4.8-10.8) K/ul RBC (4.70-6.10) M/uL Hgb (14.0-18.0) g/dl Hct (42.0-52.0) % MCV (80.0-100.0) fL MCH (25.0-34.0) pg MCHC (32.0-36.0) g/dL RDW Std Deviation (36.4-46.3) fL RDW Coeff of Roby (11.5-14.5) % Plt Count (130-400) K/uL MPV (9.4-12.4) fL Immature Gran % (Auto) % Neut % (Auto) % Lymph % (Auto) % Candler % (Auto) % Eos % (Auto) % Baso % (Auto) % Neut # (Auto) (1.40-6.50) K/uL Lymph # (Auto) (1.20-3.40) K/uL Candler # (Auto) (0.11-0.59) K/uL Eos # (Auto) (0.00-0.50) K/uL Baso # (Auto) (0.00-0.20) K/uL Immature Gran # (Auto) (0.01-0.20) K/uL PT (9.0-12.0) Seconds INR (0.9-1.1) APTT (21.0-31.0) Seconds PTT Ratio Sodium (136-145) mmol/L Potassium (3.5-5.1) mmol/L Chloride (98-107) mmol/L Carbon Dioxide (21-32) mmol/L Anion Gap (3-11) BUN (6-23) mg/dl Creatinine (0.6-1.4) mg/dl Est Cr Clr Drug Dosing ml/min Est GFR ( Amer) ml/min Est GFR (Non-Af Amer) ml/min BUN/Creatinine Ratio (10-20) Glucose (70-99(Fasting)) mg/dl Calcium (8.6-10.3) mg/dl Total Bilirubin (0.2-1.0) mg/dl AST (13-39) U/L ALT (7-52) U/L Alkaline Phosphatase (34-104) U/L Troponin I High Sens 8.5 (0-20) pg/ml B-Natriuretic Peptide (0-100) pg/ml Total Protein (6.0-8.3) gm/dl Albumin (3.4-5.0) gm/dl Globulin (2.5-4.0) gm/dl Albumin/Globulin Ratio (0.9-2) Procalcitonin (0-0.5) ng/ml Urine Color Dark Yellow Urine Appearance Clear (Clear) Urine pH 5.0 (4.5-7.5) Ur Specific Gattman 1.019 (1.000-1.030) Urine Protein 2+ H (Negative) Urine Glucose (UA) Negative (Negative) Urine Ketones Trace H (Negative) Urine Blood 3+ H (Negative) Urine Nitrite Negative (Negative) Urine Bilirubin Negative (Negative) Urine Urobilinogen Negative (Negative) Ur Leukocyte Esterase Negative (Negative) Urine WBC (Auto) 1-5 (0-5) /hpf Urine RBC (Auto) 10-30 H (0-4) /hpf U Hyaline Cast (Auto) 1-5 (0-5) /lpf U Epithel Cells (Auto) 0-5 (0-5) /lpf Urine Bacteria (Auto) Negative (Negative) SARS-CoV-2 (PCR) NEGATIVE (Negative) Influenza Type A (PCR) Negative (Neg) Influenza Type B (PCR) Negative (Neg) RSV (RT-PCR) Negative (Neg) 04/01/23 04/01/23 Range/Units 17:13 17:13 WBC (4.8-10.8) K/ul RBC (4.70-6.10) M/uL Hgb (14.0-18.0) g/dl Hct (42.0-52.0) % MCV (80.0-100.0) fL MCH (25.0-34.0) pg MCHC (32.0-36.0) g/dL RDW Std Deviation (36.4-46.3) fL RDW Coeff of Roby (11.5-14.5) % Plt Count (130-400) K/uL MPV (9.4-12.4) fL Immature Gran % (Auto) % Neut % (Auto) % Lymph % (Auto) % Candler % (Auto) % Eos % (Auto) % Baso % (Auto) % Neut # (Auto) (1.40-6.50) K/uL Lymph # (Auto) (1.20-3.40) K/uL Candler # (Auto) (0.11-0.59) K/uL Eos # (Auto) (0.00-0.50) K/uL Baso # (Auto) (0.00-0.20) K/uL Immature Gran # (Auto) (0.01-0.20) K/uL PT (9.0-12.0) Seconds INR (0.9-1.1) APTT (21.0-31.0) Seconds PTT Ratio Sodium (136-145) mmol/L Potassium (3.5-5.1) mmol/L Chloride (98-107) mmol/L Carbon Dioxide (21-32) mmol/L Anion Gap (3-11) BUN (6-23) mg/dl Creatinine (0.6-1.4) mg/dl Est Cr Clr Drug Dosing ml/min Est GFR ( Amer) ml/min Est GFR (Non-Af Amer) ml/min BUN/Creatinine Ratio (10-20) Glucose (70-99(Fasting)) mg/dl Calcium (8.6-10.3) mg/dl Total Bilirubin (0.2-1.0) mg/dl AST (13-39) U/L ALT (7-52) U/L Alkaline Phosphatase (34-104) U/L Troponin I High Sens (0-20) pg/ml B-Natriuretic Peptide 26 (0-100) pg/ml Total Protein (6.0-8.3) gm/dl Albumin (3.4-5.0) gm/dl Globulin (2.5-4.0) gm/dl Albumin/Globulin Ratio (0.9-2) Procalcitonin 0.07 (0-0.5) ng/ml Urine Color Urine Appearance (Clear) Urine pH (4.5-7.5) Ur Specific Gattman (1.000-1.030) Urine Protein (Negative) Urine Glucose (UA) (Negative) Urine Ketones (Negative) Urine Blood (Negative) Urine Nitrite (Negative) Urine Bilirubin (Negative) Urine Urobilinogen (Negative) Ur Leukocyte Esterase (Negative) Urine WBC (Auto) (0-5) /hpf Urine RBC (Auto) (0-4) /hpf U Hyaline Cast (Auto) (0-5) /lpf U Epithel Cells (Auto) (0-5) /lpf Urine Bacteria (Auto) (Negative) SARS-CoV-2 (PCR) (Negative) Influenza Type A (PCR) (Neg) Influenza Type B (PCR) (Neg) RSV (RT-PCR) (Neg) Administered Medications Discontinued Medications Albuterol (Albut/Ipratrop 3mg/0.5mg Neb 3 Ml Vial) 3 ml NEB NOW STA; Protocol Stop: 04/01/23 17:43 Last Admin: 04/01/23 17:49 Dose: 3 ml Documented By: KADIE Furosemide (Furosemide 40 Mg/4 Ml Vial) 40 mg IV ONE STA Stop: 04/01/23 18:10 Last Admin: 04/01/23 18:22 Dose: 40 mg Documented By: KADIE Ioversol (Ioversol 350 Mg 125ml Prefilled Syringe) 115 ml IV ONCE ONE Stop: 04/01/23 18:34 Last Admin: 04/01/23 18:33 Dose: 115 ml Documented By: KEYONNA Imaging Data Attestation: I personally reviewed and interpreted this imaging study as follows: My Impression: 1 view chest x-ray was obtained in the emergency department. My interpretation is bilateral pleural effusions, final report below. Radiologist's Impression: Chest X-Ray 04/01/23 13:09 XR chest 1V not portable HISTORY: 87 years-old Male cough acute cough COMPARISON: 03/24/2023 TECHNIQUE: AP view of the chest FINDINGS: Cardiac silhouette is enlarged. Small pleural effusions with mild bibasilar opacities. Pulmonary vascular congestion. No pneumothorax. Degenerative changes of the shoulders and spine. Cholecystectomy. IMPRESSION: 1. Cardiomegaly with pulmonary vascular congestion. 2. Small pleural effusions with mild bibasilar densities favoring atelectasis. ACT 112: Negative or not required by law. The above report was generated using voice recognition software. It may contain grammatical, syntax or spelling errors. Electronically signed by: Richard Live M.D. 04/01/2023 2:45 PM Abdomen/Pelvis CT 04/01/23 18:02 Exam(s): CT ABDOMEN + PELVIS W/WO Contrast IV Amt: 115ml optiray 350 EXAM: CT Abdomen and Pelvis Without and With Intravenous Contrast CLINICAL HISTORY: Reason for exam: microscopic hematuria, lower abdominal pain. TECHNIQUE: Axial computed tomography images of the abdomen and pelvis without and with intravenous contrast. CTDI is 24.5 mGy and DLP is 625.7 mGy-cm. Automated exposure control was utilized for the study. A dose lowering technique was utilized adhering to the principles of ALARA. CONTRAST: Patient received 115ml optiray 350 of IV contrast COMPARISON: 05/09/20. FINDINGS: Thoracic findings discussed in separately dictated report for concurrent chest CT. 6 mm superior right lobe hepatic hypodensity is too small to characterize, but stable in the interval, very likely a cyst. Status post cholecystectomy. No biliary dilation. Pancreatic atrophy without evidence of acute pancreatitis. The adrenal glands demonstrate mild, nonspecific nodular thickening without dominant mass. The spleen is unremarkable. There are bilateral renal cortical and parapelvic cysts as well as hypodensities that are too small to characterize. No clear solid mass/tumor. 2.2 cm hypodensity to the anteromedial interpolar cortex appears different than the prior study, likely reflecting partial collapse of the more rounded cyst seen in this area on the prior study. Left renal cortical scarring again noted. No obstruction. Diverticulosis coli without diverticulitis. Patulous small bowel loops with scattered air fluid levels. Consider enteritis. No discrete transition point to indicate mechanical obstruction. No perforation. Mild prostatomegaly without pathologic urinary bladder distention. Aortoiliofemoral atherosclerosis. 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 Stable appearance in the interval. Operative changes of the abdominal wall compatible with interval mesh repair of ventral hernia. No recurrent herniation. Mild lumbar levocurvature. Multilevel spondylosis. Hemangioma to the T12 vertebral body. No acute fracture. IMPRESSION: No clear explanation for reported hematuria. No urolithiasis or hydronephrosis. No clearly suspicious renal mass. Bilateral renal cysts. Renal and hepatic hypodensities that are too small to characterize. Patulous small bowel loops with scattered air fluid levels. Consider enteritis. No discrete transition point to indicate mechanical obstruction. Diverticulosis coli without diverticulitis. Incidental findings as above. Electronically signed by: Clint Dorado M.D. 04/01/23 20:06 PM Chest CTA 04/01/23 18:06 Exam(s): CTA CHEST IV Amt: 115ml optiray 350 EXAM: CT Angiography Chest With Intravenous Contrast CLINICAL HISTORY: Reason for exam: PE. TECHNIQUE: Axial computed tomographic angiography images of the chest with intravenous contrast. CTDI is 25.82 mGy and DLP is 1233.97 mGy-cm. Automated exposure control was utilized for the study. A dose lowering technique was utilized adhering to the principles of ALARA. MIP reconstructed images were created and reviewed. COMPARISON: 12/07/22. FINDINGS: There is no pulmonary embolism. Limited aortic opacification. No clear dissection, but the descending segment is not well assessed. No aneurysm. Aortic and coronary atherosclerosis. Mild cardiomegaly. Small pleural effusions. Basilar atelectasis is out of proportion to fluid compression. The right lower lobe is almost completely collapsed. Cannot exclude coexisting pneumonia. Small, nonspecific mediastinal lymph nodes. No acute fracture. IMPRESSION: Basilar atelectasis is out of proportion to fluid compression by small pleural effusions. Near total RLL collapse. Cannot exclude coexisting pneumonia. Mild cardiomegaly with CAD. No PE. Electronically signed by: Clint Dorado M.D. 04/01/23 20:03 PM Discharge Plan Visit Data Chief Complaint: Illness Stated Complaint: DIZZY,CHEST ISSUES,SLIGHT PAIN,DOC REF ED Provider: Franklin Jeter Discharge Problem: Bilateral pleural effusion, Cough, SOB (shortness of breath) Patient Disposition: Admitted As Inpatient Discharge Instructions Interventions: ED Discharge Assessment Last Done: 04/01/23 19:50
[2023-04-01 13:33] LABS: Albumin Level 3.6 gm/dl (3.4-5.0); Calcium 9.8 mg/dl (8.6-10.3); Potassium 4.4 mmol/L (3.5-5.1)
[2023-04-01 13:37] LABS: Influenza A virus by PCR Negative (Neg); Influenza B virus by PCR Negative (Neg); RSV by PCR Negative (Neg); SARS CoV2 RNA(COVID-19) Ceph NEGATIVE (Negative)
[2023-04-01 13:39] LABS: BUN Creatinine Ratio 20.9 (10-20); Creatinine Clr Calc Pharmacy 39.8 ml/min; Est GFR (African American) 57.8 ml/min; Est GFR (Non-African American) 49.9 ml/min; Globulin 3.6 gm/dl (2.5-4.0); Total Protein 7.2 gm/dl (6.0-8.3)
--- NOTE | 2023-04-01 14:47 | XRay Report ---
XR chest 1V not portable HISTORY: 87 years-old Male cough acute cough COMPARISON: 03/24/2023 TECHNIQUE: AP view of the chest FINDINGS: Cardiac silhouette is enlarged. Small pleural effusions with mild bibasilar opacities. Pulmonary vasc ular congestion. No pneumothorax. Degenerative changes of the shoulders and spine. Cholecystectomy. IMPRESSION: 1. Cardiomegaly with pulmonary vascular congestion. 2. Small pleural effusions with mild bibasilar densities favoring atelectasis. ACT 112: Negative or not required by law. The above report was generated using voice recognition software. It may contain grammatical, syntax o r spelling errors. Electronically signed by: Richard Live M.D. 04/01/2023 2:45 PM
--- NOTE | 2023-04-01 16:44 | History & Physical Report ---
Date of Service April 01, 2023 Assessment & Plan (1) SOB (shortness of breath): Plan: Suspect due to bilateral pleural effusions - no definitive pneumonia on admission, procalcitonin negative, no improvement with recent antibiotics. If clinically deteriorating, febrile or WBC increasing would consider adding antibiotics Cepheid negative for influenza, SARS-COV-2, RSV No significant improvement with duoneb/albuterol, no wheezing on exam and no history of reactive airway disease therefore low suspicion of this CT for PE to be done with CT A/P as below to investigate further (2) Bilateral pleural effusion: Plan: Unclear cause. Left side appears to be longstanding since admission since November for mechanical fall with left hemothorax and multiple rib fractures Right side appears new ?parapneumonic vs. CHF Does not appear otherwise hypervolemic with minimal leg edema, no JVD and no orthopnea (although history not reliable) Trial Lasix 40mg IV now, repeat BMP in AM to reassess further dosing TTE to assess for cardiomyopathy (3) Microscopic hematuria: Plan: UA was 3+ positive for blood Patient reported new onset of nocturia x2 months, and regularly awakens at night to urinate reports different "smell" to the urine Patient saw urology in January and further testing on microcytic hematuria was recommended at this time. However, per urology note, patient declined further testing Discussed UA results with patient today, and he agreed with decision to get a CT of the abdomen/pelvis for further work-up (4) Cough: Plan: SLT consult to assess for silent aspirations (5) Fatigue: Plan: Unclear definitive cause on admission but suspect from lack of sleep with ongoing night time coughing No infection cause found on admission (6) Memory impairment: Plan: Continue donepezil (7) BPH w urinary obs/LUTS: Plan: Continue finasteride (8) Orthostatic hypotension: Plan: Longstanding, continue midodrine Plan VTE Prophylaxis - deferred on admission given lack of acute findings, consider adding if poor ambulation Diet - Low Na Disposition - observation to med/tele Admission and Anticipated Discharge Date Admission Date: April 01, 2023 History of Present Illness Chief Complaint: Shortness of breath, cough Primary Care Provider: Erika Sequeira MD Kofi Flower is an 87-year-old male who presents to the ED with worsening cough, lightheadedness, fatigue, and SOB for 2 weeks. The patient reports that the cough has been ongoing for 2 months. He was hospitalized in November for a fall that led to a hemothorax and rib fractures, and his reports that his shortness of breath and coughing improved at first but never fully recovered. On 03/23/2023, his PCP started him on Augmentin 500-125 mg p.o. twice daily x10 days, and prednisone 40 mg p.o. x5 days although subsequent CXR did not show pneumonia. He was also given an albuterol inhaler, but his reported that he was not using it correctly. Unclear if he made any significant improvement with this treatment but also not significantly worse. Coughing worse at night. He denies any leg swelling, weight gain, orthopnea or PND. No known history of heart failure. No fever chills, nasal congestion, sore throat or sinus pain. Associated generalized fatigue and weakness. He notes nocturia once a night and urine smelling stronger than usual. Eating and drinking well. Allergies Allergy/AdvReac Type Severity Reaction Status Date / Time walnut Allergy Severe AFFECTS Verified 04/01/23 17:14 THE LINING OF MOUTH AND THROAT (ITCHY) lidocaine Allergy Mild Rash Verified 04/01/23 17:14 Home Medications Medication Instructions Recorded Confirmed Type multivitamin 1 tab PO QAM 12/28/18 04/01/23 History omega 1-ufc-atm-fish oil 1,000 mg 1 cap PO QAM 12/28/18 04/01/23 History (120 mg-180 mg) capsule (Fish Oil) cholecalciferol (vitamin D3) 25 25 mcg PO QAM 05/16/20 04/01/23 History mcg (1,000 unit) tablet (Vitamin D3) finasteride 5 mg tablet 5 mg PO DAILY #90 tabs 05/06/22 04/01/23 Rx sertraline 50 mg tablet 50 mg PO DAILY #30 tabs 11/03/22 04/01/23 Rx mirabegron 25 mg tablet,extended 25 mg PO DAILY Urinary urgency 11/04/22 04/01/23 Rx release 24 hr (Myrbetriq) #30 tabs donepezil 10 mg tablet 10 mg PO HS 12/07/22 04/01/23 History levothyroxine 50 mcg tablet 50 mcg PO DAILYBB 12/07/22 04/01/23 History vitamin E acetate 134 mg (200 134 mg PO QAM 12/07/22 04/01/23 History unit) capsule atorvastatin 10 mg tablet 10 mg PO HS #90 tabs 01/12/23 04/01/23 Rx midodrine 2.5 mg tablet 2.5 mg PO BID #60 tabs 01/28/23 04/01/23 Rx albuterol sulfate 90 mcg/actuation 2 puff inhalation QID PRN 02/09/23 04/01/23 Rx aerosol inhaler shortness of breath or wheezing #6.7 grams Wheeled Walker #1 ea 03/13/23 04/01/23 Rx albuterol sulfate 2.5 mg/3 mL 2.5 mg (3 mL) inhalation QID PRN 03/23/23 04/01/23 Rx (0.083 %) solution for nebulization shortness of breath or wheezing #75 mL amoxicillin 500 mg-potassium 1 tab PO BID #20 tabs 03/23/23 04/01/23 Rx clavulanate 125 mg tablet (Augmentin) trazodone 50 mg tablet 50 mg PO HS #30 tabs 03/25/23 04/01/23 Rx Past Med/Surg History Medical History Anosmia 2019? Anxiety Basal cell carcinoma of skin Benign neoplasm of colon Cholecystitis Epigastric abdominal pain Essential tremor Fatigue Ongoing issue x 2 yrs, pt has had cardiac workup, neuro eval and uro eval to r/o bladder ca. Hyperlipidemia Hypothyroid HZV (herpes zoster virus) post herpetic neuralgia Intractable abdominal pain Memory impairment PCP and pt's feel pt showing signs of dementia, following with neuro now. Mixed dementia Orthostatic hypotension Ribs, multiple fractures Right rotator cuff tendonitis Sensorineural hearing loss of both ears Severe dizziness Negative cardiac and neuro workup. Severe sleep apnea Shingles LEFT EYE-DX'D 5 YRS AGO Sleep disturbances Temporomandibular joint disorder CLICKS-HAS NEVER LOCKED Urge incontinence Surgical History H/O umbilical hernia repair (05/31/20) Open Incisional Hernia Repair with Mesh Open Umbilical Hernia Repair with Mesh, excision of skin lesion, Enterolysis Dr. Navas 05/31/2020 History of eye surgery right eye 12/10/22 History of incisional hernia repair (05/31/20) Open Incisional Hernia Repair with Mesh; - Kranthi Navas, DO Open Umbilical Hernia Repair with Mesh, excision of skin lesion, Enterolysis Dr. Navas 05/31/2020 History of shoulder surgery LEFT Hx of colonoscopy S/P appendectomy PT DENIES Family History Mother , age 73 of an [place] Myocardial infarction Father , age 92 of uncertain cause No problems noted. Other No family history of adverse response to anesthesia No family history of bleeding disorder Denies family history of Ovarian cancer Prostate cancer Breast cancer Colorectal cancer Social History Smoking Status: Never smoker Second Hand Exposure: No; Do You Dip or Chew Tobacco: No; Hx Alcohol Use: No Hx Substance Use: No Preferred Language: Guatemalan Communication Ability: Effective Communication Ability Comment: VERY HARD OF HEARING-WEARS BILAT AIDES-WILL BRING DOS Visual Impairment: No Limitations Hearing Ability: Use of Hearing Aid Project Manager Interior Design Required: No Beliefs That Will Affect Care: None marital status: Current Living Situation: Spouse current occupational status: retired 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, [employer] How many Children do You have: 2 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76 Feels Safe at Home: Yes Safety Concerns: Feels Safe At This Time Childhood Exposure to Second-Hand Smoke: No Diet: regular caffeine: Yes (tea rarely) during the past year weight has: remained stable Dental Care, Regularly: Yes Physical Activity Frequency: 3-4 Times per Week Seatbelt Use: always Sunscreen Use: Yes Do you think of yourself as: straight/heterosexual Gender Identity: Male Assistive Devices: Glasses Review of Systems Review of Systems: All systems reviewed & are unremarkable except as noted in HPI & below Physical Exam Constitutional: WD/WN, vitals as above Eyes: PERRL, conjunctivae normal, anicteric sclerae ENMT: external ear and nose normal, oropharynx normal Respiratory: normal respiratory effort and + cough; no respiratory distress Auscultation: + crackles (bibasal); breath sounds present, no diminished lung sounds, no rales, no rhonchi and no wheezes Cardiovascular: Rate/Rhythm: regular rate and regular rhythm Heart Sounds: no murmur Vessels: no JVD Extremities: normal capillary refill and + pedal edema (1+ b/l equal); no calf tenderness Gastrointestinal (Abdomen): normal bowel sounds, soft, nontender, no hepatosplenomegaly Musculoskeletal: no cyanosis or clubbing, extremities motor strength 5/5 Skin: no rashes, warm and dry Neurologic: moves all extremities and awake; no focal motor deficits and not confused Psychiatric: A+Ox3, euthymic affect Genitourinary: no CVA tenderness Results & Data Results & Data Vital Signs (Past 12 Hours) Vital Signs Temp Pulse Resp BP Pulse Ox O2 Del Method 04/01/23 11:43 37 C 73 16 124/73 92 Room Air Laboratory Results Abnormal lab results 04/01/23 04/01/23 Range/Units 12:36 12:36 WBC 16.26 H (4.8-10.8) K/ul RBC 4.50 L (4.70-6.10) M/uL Hct 41.7 L (42.0-52.0) % Neut # (Auto) 11.33 H (1.40-6.50) K/uL Coal # (Auto) 1.24 H (0.11-0.59) K/uL Eos # (Auto) 0.89 H (0.00-0.50) K/uL BUN 27 H (6-23) mg/dl BUN/Creatinine Ratio 20.9 H (10-20) Diagnostic Findings XR chest 1V not portable HISTORY: 87 years-old Male cough acute cough COMPARISON: 03/24/2023 TECHNIQUE: AP view of the chest FINDINGS: Cardiac silhouette is enlarged. Small pleural effusions with mild bibasilar opacities. Pulmonary vascular congestion. No pneumothorax. Degenerative changes of the shoulders and spine. Cholecystectomy. IMPRESSION: 1. Cardiomegaly with pulmonary vascular congestion. 2. Small pleural effusions with mild bibasilar densities favoring atelectasis. Medications Administered ER Medications Given: None ECG Rate (beats per minute): 74 Rhythm: normal sinus Findings: no acute ischemic change Comparison ECG Date: from (December 07, 2022) Change: no significant change Code Status & VTE Plan Code Status Full VTE Prophylaxis Plan VTE Prophylaxis will be ordered: No PG Care Time/CCT Total # of Minutes Spent Total Time Spent with Patient: Total time spent is greater than 50% in coordination of care (as documented) at patient's floor/unit and/or counseling patient: Coding Level of Care Code 42543 INT INP/OBS CARE 3/75MIN Diagnoses SOB (shortness of breath) R06.02 Bilateral pleural effusion J90 Microscopic hematuria R31.29 Cough R05.9 Fatigue R53.83 Memory impairment R41.3 BPH w urinary obs/LUTS N40.1; N13.8 Orthostatic hypotension I95.1
[2023-04-01 17:42] LABS: Appearance Urine Clear (Clear); Bacteria Urine Automated Negative (Negative); Bilirubin Urine Negative (Negative); Blood Urine 3+ (Negative); Color Urine Dark Yellow; Epithelial Cell Urine Auto 0-5 /lpf (0-5); Glucose Urine UA Negative (Negative); Ketones Urine Trace (Negative); Leukocyte Esterase Urine Negative (Negative); Nitrite Urine Negative (Negative); Protein Urine 2+ (Negative); Specific Gravity Urine 1.019 (1.000-1.030); Urobilinogen Urine Negative (Negative)
[2023-04-01] MEDS ORDERED: ALBUT/IPRATROP 3MG/0.5MG NEB 3 ML VIAL NEB STA (17:42)
[2023-04-01] MEDS ORDERED: FUROSEMIDE 40 MG/4 ML VIAL IV STA (18:09)
[2023-04-01] MEDS ORDERED: IOVERSOL 350 MG 125mL Prefilled Syringe IV ONE (18:33)
--- NOTE | 2023-04-01 20:04 | CT Scan Report ---
Exam(s): CTA CHEST IV Amt: 115ml optiray 350 EXAM: CT Angiography Chest With Intravenous Contrast CLINICAL HISTORY: Reason for exam: PE. TECHNIQUE: Axial computed tomographic angiography images of the chest with intravenous contrast. CTDI is 25.82 mGy and DLP is 1233.97 mGy-cm. Automated exposure control was utilized for the study. A dose lowering technique was utilized adhering to the principles of ALARA. MIP reconstructed images were created and reviewed. COMPARISON: 12/07/22. FINDINGS: There is no pulmonary embolism. Limited aortic opacification. No clear dissection, but the descending segment is not well assessed. No aneurysm. Aortic and coronary atherosclerosis. Mild cardiomegaly. Small pleural effusions. Basilar atelectasis is out of proportion to fluid compression. The right lower lobe is almost completely collapsed. Cannot exclude coexisting pneumonia. Small, nonspecific mediastinal lymph nodes. No acute fracture. IMPRESSION: Basilar atelectasis is out of proportion to fluid compression by small pleural effusions. Near total RLL collapse. Cannot exclude coexisting pneumonia. Mild cardiomegaly with CAD. No PE. Electronically signed by: Clint Dorado M.D. 04/01/23 20:03 PM
--- NOTE | 2023-04-01 20:07 | CT Scan Report ---
Exam(s): CT ABDOMEN + PELVIS W/WO Contrast IV Amt: 115ml optiray 350 EXAM: CT Abdomen and Pelvis Without and With Intravenous Contrast CLINICAL HISTORY: Reason for exam: microscopic hematuria, lower abdominal pain. TECHNIQUE: Axial computed tomography images of the abdomen and pelvis without and with intravenous contrast. CTDI is 24.5 mGy and DLP is 625.7 mGy-cm. Automated exposure control was utilized for the study. A dose lowering technique was utilized adhering to the principles of ALARA. CONTRAST: Patient received 115ml optiray 350 of IV contrast COMPARISON: 05/09/20. FINDINGS: Thoracic findings discussed in separately dictated report for concurrent chest CT. 6 mm superior right lobe hepatic hypodensity is too small to characterize, but stable in the interval, very likely a cyst. Status post cholecystectomy. No biliary dilation. Pancreatic atrophy without evidence of acute pancreatitis. The adrenal glands demonstrate mild, nonspecific nodular thickening without dominant mass. The spleen is unremarkable. There are bilateral renal cortical and parapelvic cysts as well as hypodensities that are too small to characterize. No clear solid mass/tumor. 2.2 cm hypodensity to the anteromedial interpolar cortex appears different than the prior study, likely reflecting partial collapse of the more rounded cyst seen in this area on the prior study. Left renal cortical scarring again noted. No obstruction. Diverticulosis coli without diverticulitis. Patulous small bowel loops with scattered air fluid levels. Consider enteritis. No discrete transition point to indicate mechanical obstruction. No perforation. Mild prostatomegaly without pathologic urinary bladder distention. Aortoiliofemoral atherosclerosis. 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 Stable appearance in the interval. Operative changes of the abdominal wall compatible with interval mesh repair of ventral hernia. No recurrent herniation. Mild lumbar levocurvature. Multilevel spondylosis. Hemangioma to the T12 vertebral body. No acute fracture. IMPRESSION: No clear explanation for reported hematuria. No urolithiasis or hydronephrosis. No clearly suspicious renal mass. Bilateral renal cysts. Renal and hepatic hypodensities that are too small to characterize. Patulous small bowel loops with scattered air fluid levels. Consider enteritis. No discrete transition point to indicate mechanical obstruction. Diverticulosis coli without diverticulitis. Incidental findings as above. Electronically signed by: Clint Dorado M.D. 04/01/23 20:06 PM
[2023-04-01] MEDS ORDERED: ACETAMINOPHEN 325 MG TAB PO PRN (22:02)
[2023-04-01] MEDS: DONEPEZIL HCL 10 MG TAB PO SCH (23:20)
[2023-04-01] MEDS: traZODone HCL 50 MG TAB PO SCH (23:20)
[2023-04-01] MEDS: ATORVASTATIN 10 MG TAB PO SCH (23:20)
[2023-04-02] MEDS: LEVOTHYROXINE SODIUM 50 MCG TABLET PO SCH (05:48)
[2023-04-02] MEDS: CHOLECALCIFEROL 1,000 UNITS 25 MCG TAB PO SCH (08:57)
[2023-04-02] MEDS: VIBEGRON 75 MG TAB PO SCH (08:57)
[2023-04-02] MEDS: FINASTERIDE 5 MG TAB PO SCH (08:57)
[2023-04-02] MEDS: MIDODRINE HCL 2.5 MG TAB PO SCH ×2 (08:58→16:19)
[2023-04-02] MEDS: SERTRALINE HCL 50 MG TABLET PO SCH (08:58)
[2023-04-02] MEDS ORDERED: PIPERACILLIN/TAZOBACTAM 4.5 GM in DEXTROSE 5% 100 ML IV ONE (09:00)
[2023-04-02 09:29] LABS: Basophils # (auto) 0.04 K/uL (0.00-0.20); Basophils % (auto) 0.2 %; Eosinophils # (auto) 0.86 K/uL (0.00-0.50); Hematocrit (blood only) 39.3 % (42.0-52.0); Hemoglobin 13.5 g/dl (14.0-18.0); Immature Granulocytes # (auto) 0.15 K/uL (0.01-0.20); Immature Granulocytes % (auto) 0.9 %; Lymphocytes # (auto) 1.67 K/uL (1.20-3.40); Lymphocytes % (auto) 9.6 %; Mean Corpuscular Hemoglobin 31.5 pg (25.0-34.0); Mean Corpuscular Hgb Conc 34.4 g/dL (32.0-36.0); Mean Corpuscular Volume 91.8 fL (80.0-100.0); Mean Platelet Volume 9.4 fL (9.4-12.4); Monocytes % (auto) 5.8 %; Neutrophils # (auto) 13.63 K/uL (1.40-6.50); Neutrophils % (auto) 78.5 %; Platelet Count 245 K/uL (130-400); RDW Coefficient of Variation 13.3 % (11.5-14.5); RDW Standard Deviation 45.1 fL (36.4-46.3); Red Blood Count 4.28 M/uL (4.70-6.10); White Blood Count 17.35 K/ul (4.8-10.8)
[2023-04-02 09:45] LABS: BUN Creatinine Ratio 22.9 (10-20); Calcium 9.2 mg/dl (8.6-10.3); Creatinine Clr Calc Pharmacy 36.6 ml/min; Est GFR (African American) 52.4 ml/min; Est GFR (Non-African American) 45.2 ml/min; Potassium 4.1 mmol/L (3.5-5.1)
[2023-04-02 10:50] LABS: Total Protein Urine Random 54.8 mg/dl (0-11.9)
[2023-04-02 10:56] LABS: Creatinine Urine Random 104.4 mg/dl; Protein Creatinine Ratio Urine 0.5 (0-0.2)
--- NOTE | 2023-04-02 12:30 | Hospitalist Progress Note ---
Date of Service April 02, 2023 Assessment & Plan (1) SOB (shortness of breath): Plan: Acute hypoxic respiratory failure present on admission. Oxygen to maintain sat uration greater than 90%. Wean off as tolerated. Treat underlying pulmonary problems. Chest CTA negative for pulmonary embolism. (2) Bilateral pleural effusion: Plan: Hopefully just passive. No overt congestive heart failure. Incentive spirometry ordered. He does not appear to need diuresis. Cardiac echo report pending (3) Microscopic hematuria: Plan: UA was 3+ positive for blood. Urine culture pending. Empiric Zosyn therapy started. Abdominal pelvic CT scan did not provide any additional information (4) Cough: Plan: Nonproductive. SLT consult to assess for silent aspirations (5) Fatigue: Plan: Unclear definitive cause on admission but suspect from lack of sleep with ongoing night time coughing. OT and PT assessments requested (6) Memory impairment: Plan: Continue donepezil (7) BPH w urinary obs/LUTS: Plan: Continue finasteride (8) Orthostatic hypotension: Plan: Longstanding, continue midodrine Plan Anticipate eventual discharge to home. It is uncertain if he will need home oxygen at this point Admission and Anticipated Discharge Date Admission Date: April 02, 2023 Subjective Alert and oriented. is at the bedside. He does not clinically have congestive heart failure nor does he have any previous cardiac history. He does have small bilateral effusions with collapse of the right lower lobe which may be nothing more than atelectasis. Incentive spirometry ordered along with occupational therapy and physical therapy. Cardiac echo ordered to evaluate left ventricular function. Pulmonary medicine consultation pending. Review of Systems Review of Systems: Constitutional-no fever or chills ENT-no blurred vision, no double vision, no epistaxis, no sore throat Respiratory-nonproductive cough. No wheezing, no shortness of breath, no hemoptysis Cardiac-no palpitations, no chest pain, no syncope GI-no nausea, vomiting, diarrhea, melena, hematochezia -no urinary retention, no urinary incontinence, no dysuria, no hematuria Musculoskeletal-no joint pain, no muscle tenderness Skin-no bruising, no rashes, no pruritus Neuro-no isolated weakness, no paresthesia, no weakness Psych-no depression, no anxiety Physical Exam Physical Exam: General-alert and oriented x3, no fevers, no chills HEENT-head atraumatic and normocephalic, pupils equal and reactive to light, extraocular muscles intact Neck-no lymphadenopathy or thyromegaly, trachea midline Chest-diminished breath sounds and dullness at the right base. No wheezing. i Cardiac-regular rate and rhythm, normal S1 and S2 Abdomen-normal bowel sounds, nontender, no hepatosplenomegaly Extremities-no cyanosis, clubbing, or edema Neuro-cranial nerves II through XII intact, motor and sensory function within normal limits, strength symmetrical , no focal deficits Psych-normal affect, normal mood Results & Data Results & Data Vital Signs (Past 12 Hours) Vital Signs Temp Pulse Pulse Resp BP Pulse Ox O2 Del Method 04/02/23 11:24 64 04/02/23 11:24 Nasal Cannula 04/02/23 08:34 36.6 C 67 18 111/69 95 Nasal Cannula 04/02/23 03:02 36.3 C L 55 L 16 134/72 96 Nasal Cannula O2 Flow Rate 04/02/23 11:24 04/02/23 11:24 4 04/02/23 08:34 4 04/02/23 03:02 4 Laboratory Results 04/02/23 09:02 04/02/23 09:02 PG Care Time/CCT Total # of Minutes Spent Total Time Spent with Patient: Total time spent is greater than 50% in coordination of care (as documented) at patient's floor/unit and/or counseling patient: Coding Level of Care Code 96615 SUB INP/OBS CARE 3/50MIN Diagnoses SOB (shortness of breath) R06.02 Bilateral pleural effusion J90 Microscopic hematuria R31.29 Cough R05.9 Fatigue R53.83 Memory impairment R41.3 BPH w urinary obs/LUTS N40.1; N13.8 Orthostatic hypotension I95.1
--- NOTE | 2023-04-02 12:48 | Pulmonary Consultation ---
Date of Consultation April 02, 2023 Assessment & Plan (1) Bilateral pleural effusion: (2) Cough: Cough type: acute Qualified Code(s): R05.1 - Acute cough (3) Atelectasis of both lungs: (4) Obstructive sleep apnea: Plan Impression: 87-year-old male admitted with a variety of complaints found to have bilateral lower lobe compressive atelectasis with small bilateral pleural effusions. His main complaint is cough. He is quite anxious and adamant about returning home and not remaining in the hospital. The patient does have a history of severe complex sleep disordered breathing followed in the [facility] sleep clinic. He does not have or does not use noninvasive positive pressure ventilation at night regularly. Recommendations: 1. Bilateral pleural effusions. Work-up and management per the patient's primary care provider and inpatient hospitalist. BMP was normal. The patient may have a degree of diastolic dysfunction. Agree with plans for diuretics as tolerated. 2. Basilar atelectasis: Suspect this is likely compressive in etiology. He is already been ordered flutter valve and incentive spirometry but these have not yet been delivered. Recommend starting this regimen of pulmonary toilet and following the patient clinically. A follow-up CT scan can be obtained by his outpatient provider in 4 to 6 weeks. No indication to pursue bronchoscopy at this point in time. 3. In light of the patient's parkinsonism and underlying dementia, recommend speech therapy evaluation to exclude potential silent aspiration. This could account for the infiltrates noted in the bilateral bases. 4. The patient has been initiated on Zosyn. He is afebrile. His white count is normal. Procalcitonin was unremarkable. I do not think he needs anaerobic and antipseudomonal coverage so we will discontinue antimicrobial agents at this point time and follow the patient clinically. He already completed a course of antimicrobial therapy in the outpatient setting. 5. History of severe complex sleep disordered breathing followed at the [facility] sleep [place]. Recommend nightly BiPAP. He can follow-up with the [facility] sleep medicine clinic at discharge. This point time from a pulmonary perspective the patient appears stable to consider dismissal from the hospital. Ultimate disposition is per the patient's primary admitting service. Thanks for the opportunity participating in the care of this patient. Pulmonary will sign off at this point in time but feel free to contact us with additional questions or concerns History of Present Illness Attending Physician: Trino Dorado MD History of Present Illness Asked by hospitalist to evaluate this patient with lower lobe atelectasis, bilateral pleural effusions, and cough. History is obtained from discussion with the patient as well as with the hospitalist and review the electronic medical record. History is also obtained from his who is at bedside. Patient is an 87-year-old male lifelong non-smoker with a history of dementia and Parkinson's. He states that over the last several weeks he has had an issue with nonproductive cough. He was seen by his primary care provider and put on a course of antibiotics and steroids. It is unclear if this offers the patient significant benefit. The patient's reports that his symptoms never resolved completely but may have had some interval improvement. Patient does not report any significant shortness of breath or wheezing. He presented to the emergency room yesterday due to weakness lightheadedness and wheezing was admitted to the hospital. A CT scan was obtained which revealed small bilateral pleural effusions as well as some basilar atelectasis and pulmonary was consulted for additional evaluation and management. The patient denies fevers chills night sweats or other constitutional symptoms. He does not report dysphagia or coughing after eating. He denies any heartburn or reflux symptoms. No significant postnasal drip or sinus complaints. Allergies Allergy/AdvReac Type Severity Reaction Status Date / Time walnut Allergy Severe AFFECTS Verified 04/01/23 17:14 THE LINING OF MOUTH AND THROAT (ITCHY) lidocaine Allergy Mild Rash Verified 04/01/23 17:14 Home Medications Medication Instructions Recorded Confirmed Type multivitamin 1 tab PO QAM 12/28/18 04/01/23 History omega 6-kwv-iem-fish oil 1,000 mg 1 cap PO QAM 12/28/18 04/01/23 History (120 mg-180 mg) capsule (Fish Oil) cholecalciferol (vitamin D3) 25 25 mcg PO QAM 05/16/20 04/01/23 History mcg (1,000 unit) tablet (Vitamin D3) finasteride 5 mg tablet 5 mg PO DAILY #90 tabs 05/06/22 04/01/23 Rx sertraline 50 mg tablet 50 mg PO DAILY #30 tabs 11/03/22 04/01/23 Rx mirabegron 25 mg tablet,extended 25 mg PO DAILY Urinary urgency 11/04/22 04/01/23 Rx release 24 hr (Myrbetriq) #30 tabs donepezil 10 mg tablet 10 mg PO HS 12/07/22 04/01/23 History levothyroxine 50 mcg tablet 50 mcg PO DAILYBB 12/07/22 04/01/23 History vitamin E acetate 134 mg (200 134 mg PO QAM 12/07/22 04/01/23 History unit) capsule atorvastatin 10 mg tablet 10 mg PO HS #90 tabs 01/12/23 04/01/23 Rx midodrine 2.5 mg tablet 2.5 mg PO BID #60 tabs 01/28/23 04/01/23 Rx albuterol sulfate 90 mcg/actuation 2 puff inhalation QID PRN 02/09/23 04/01/23 Rx aerosol inhaler shortness of breath or wheezing #6.7 grams Wheeled Walker #1 ea 03/13/23 04/01/23 Rx albuterol sulfate 2.5 mg/3 mL 2.5 mg (3 mL) inhalation QID PRN 03/23/23 04/01/23 Rx (0.083 %) solution for nebulization shortness of breath or wheezing #75 mL amoxicillin 500 mg-potassium 1 tab PO BID #20 tabs 03/23/23 04/01/23 Rx clavulanate 125 mg tablet (Augmentin) trazodone 50 mg tablet 50 mg PO HS #30 tabs 03/25/23 04/01/23 Rx Patient History Medical History Anosmia 2019? Anxiety Basal cell carcinoma of skin Benign neoplasm of colon Cholecystitis Epigastric abdominal pain Essential tremor Fatigue Ongoing issue x 2 yrs, pt has had cardiac workup, neuro eval and uro eval to r/o bladder ca. Hyperlipidemia Hypothyroid HZV (herpes zoster virus) post herpetic neuralgia Intractable abdominal pain Memory impairment PCP and pt's feel pt showing signs of dementia, following with neuro now. Mixed dementia Orthostatic hypotension Ribs, multiple fractures Right rotator cuff tendonitis Sensorineural hearing loss of both ears Severe dizziness Negative cardiac and neuro workup. Severe sleep apnea Shingles LEFT EYE-DX'D 5 YRS AGO Sleep disturbances Temporomandibular joint disorder CLICKS-HAS NEVER LOCKED Urge incontinence Surgical History H/O umbilical hernia repair (05/31/20) Open Incisional Hernia Repair with Mesh Open Umbilical Hernia Repair with Mesh, excision of skin lesion, Enterolysis Dr. Navas 05/31/2020 History of eye surgery right eye 12/10/22 History of incisional hernia repair (05/31/20) Open Incisional Hernia Repair with Mesh; - Kranthi Navas, Open Umbilical Hernia Repair with Mesh, excision of skin lesion, Enterolysis Dr. Navas 05/31/2020 History of shoulder surgery LEFT Hx of colonoscopy S/P appendectomy PT DENIES Family History Mother , age 73 of an [place] Myocardial infarction Father , age 92 of uncertain cause No problems noted. Other No family history of adverse response to anesthesia No family history of bleeding disorder Denies family history of Ovarian cancer Prostate cancer Breast cancer Colorectal cancer Social History Smoking Status: Never smoker Second Hand Exposure: No; Do You Dip or Chew Tobacco: No; Hx Alcohol Use: No Hx Substance Use: No Preferred Language: Jordanian Communication Ability: Effective Communication Ability Comment: VERY HARD OF HEARING-WEARS BILAT AIDES-WILL BRING DOS Visual Impairment: No Limitations Hearing Ability: Use of Hearing Aid Reproduction Technician Required: No Beliefs That Will Affect Care: None marital status: Current Living Situation: Spouse current occupational status: retired 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 No additions or deletions Physical Exam Constitutional: WD/WN, vitals as above Neck: trachea midline, no thyromegaly Respiratory: normal respiratory effort, lungs clear to auscultation Cardiovascular: RRR, no murmur, no edema Gastrointestinal (Abdomen): normal bowel sounds, soft, nontender, no hepatosplenomegaly Musculoskeletal: Extremities: extremities normal to inspection Skin: no rashes, warm and dry Neurologic: Pill-rolling tremor present. Psychiatric: Patient demonstrates cognitive impairment with difficulty with word finding and poor recall of details. Lymphatic: no cervical lymphadenopathy Results & Data Results & Data Vital Signs (Past 12 Hours) Vital Signs Temp Pulse Pulse Resp BP Pulse Ox O2 Del Method 04/02/23 11:24 64 04/02/23 11:24 Nasal Cannula 04/02/23 08:34 36.6 C 67 18 111/69 95 Nasal Cannula 04/02/23 03:02 36.3 C L 55 L 16 134/72 96 Nasal Cannula O2 Flow Rate 04/02/23 11:24 04/02/23 11:24 4 04/02/23 08:34 4 04/02/23 03:02 4 Critical Care Results & Data Vital Signs (Past 12 Hours) Vital Signs Temp Pulse Pulse Resp BP Pulse Ox O2 Del Method 04/02/23 11:24 64 04/02/23 11:24 Nasal Cannula 04/02/23 08:34 36.6 C 67 18 111/69 95 Nasal Cannula 04/02/23 03:02 36.3 C L 55 L 16 134/72 96 Nasal Cannula O2 Flow Rate 04/02/23 11:24 04/02/23 11:24 4 04/02/23 08:34 4 04/02/23 03:02 4 Lab & Micro Results (Past 24 Hours) RBC 4.28 M/uL (4.70-6.10) L 04/02/23 WBC 17.35 K/ul (4.8-10.8) H 04/02/23 Hgb 13.5 g/dl (14.0-18.0) L 04/02/23 Hct 39.3 % (42.0-52.0) L 04/02/23 MCV 91.8 fL (80.0-100.0) 04/02/23 MCH 31.5 pg (25.0-34.0) 04/02/23 MCHC 34.4 g/dL (32.0-36.0) 04/02/23 RDW Standard Deviation 45.1 fL (36.4-46.3) 04/02/23 RDW Coefficient of Variation 13.3 % (11.5-14.5) 04/02/23 Plt Count 245 K/uL (130-400) 04/02/23 MPV 9.4 fL (9.4-12.4) 04/02/23 Neutrophils (%) (Auto) 78.5 % 04/02/23 Lymphocytes (%) (Auto) 9.6 % 04/02/23 Monocytes # (Auto) 1.00 K/uL (0.11-0.59) H 04/02/23 Eosinophils # (Auto) 0.86 K/uL (0.00-0.50) H 04/02/23 Immature Granulocyte % (Auto) 0.9 % 04/02/23 Neutrophils # (Auto) 13.63 K/uL (1.40-6.50) H 04/02/23 Lymphocytes # (Auto) 1.67 K/uL (1.20-3.40) 04/02/23 Monocytes # (Auto) 1.00 K/uL (0.11-0.59) H 04/02/23 Eosinophils # (Auto) 0.86 K/uL (0.00-0.50) H 04/02/23 Basophils # (Auto) 0.04 K/uL (0.00-0.20) 04/02/23 Immature Granulocyte # (Auto) 0.15 K/uL (0.01-0.20) 3 Na 137 mmol/L (136-145) 04/02/23 K 4.1 mmol/L (3.5-5.1) 04/02/23 Cl 100 mmol/L (98-107) 04/02/23 CO2 30 mmol/L (21-32) 04/02/23 Anion Gap 7 (3-11) 04/02/23 BUN 32 mg/dl (6-23) H 04/02/23 Creatinine 1.40 mg/dl (0.6-1.4) 04/02/23 Estimated GFR ( Amer) 52.4 ml/min 04/02/23 Estimated GFR (Non-Af Amer) 45.2 ml/min 04/02/23 BUN/Creatinine Ratio 22.9 (10-20) H 04/02/23 Glu 165 mg/dl (70-99(Fasting)) H 04/02/23 Ca 9.2 mg/dl (8.6-10.3) 04/02/23 Calcium Level 9.2 mg/dl (8.6-10.3) 04/02/23 09:02 Diagnostic Findings (Past 24 Hours) Chest X-Ray 04/01/23 13:09 XR chest 1V not portable HISTORY: 87 years-old Male cough acute cough COMPARISON: 03/24/2023 TECHNIQUE: AP view of the chest FINDINGS: Cardiac silhouette is enlarged. Small pleural effusions with mild bibasilar opacities. Pulmonary vascular congestion. No pneumothorax. Degenerative changes of the shoulders and spine. Cholecystectomy. IMPRESSION: 1. Cardiomegaly with pulmonary vascular congestion. 2. Small pleural effusions with mild bibasilar densities favoring atelectasis. ACT 112: Negative or not required by law. The above report was generated using voice recognition software. It may contain grammatical, syntax or spelling errors. Electronically signed by: Richard Live M.D. 04/01/2023 2:45 PM Abdomen/Pelvis CT 04/01/23 18:02 Exam(s): CT ABDOMEN + PELVIS W/WO Contrast IV Amt: 115ml optiray 350 EXAM: CT Abdomen and Pelvis Without and With Intravenous Contrast CLINICAL HISTORY: Reason for exam: microscopic hematuria, lower abdominal pain. TECHNIQUE: Axial computed tomography images of the abdomen and pelvis without and with intravenous contrast. CTDI is 24.5 mGy and DLP is 625.7 mGy-cm. Automated exposure control was utilized for the study. A dose lowering technique was utilized adhering to the principles of ALARA. CONTRAST: Patient received 115ml optiray 350 of IV contrast COMPARISON: 05/09/20. FINDINGS: Thoracic findings discussed in separately dictated report for concurrent chest CT. 6 mm superior right lobe hepatic hypodensity is too small to characterize, but stable in the interval, very likely a cyst. Status post cholecystectomy. No biliary dilation. Pancreatic atrophy without evidence of acute pancreatitis. The adrenal glands demonstrate mild, nonspecific nodular thickening without dominant mass. The spleen is unremarkable. There are bilateral renal cortical and parapelvic cysts as well as hypodensities that are too small to characterize. No clear solid mass/tumor. 2.2 cm hypodensity to the anteromedial interpolar cortex appears different than the prior study, likely reflecting partial collapse of the more rounded cyst seen in this area on the prior study. Left renal cortical scarring again noted. No obstruction. Diverticulosis coli without diverticulitis. Patulous small bowel loops with scattered air fluid levels. Consider enteritis. No discrete transition point to indicate mechanical obstruction. No perforation. Mild prostatomegaly without pathologic urinary bladder distention. Aortoiliofemoral atherosclerosis. 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 Stable appearance in the interval. Operative changes of the abdominal wall compatible with interval mesh repair of ventral hernia. No recurrent herniation. Mild lumbar levocurvature. Multilevel spondylosis. Hemangioma to the T12 vertebral body. No acute fracture. IMPRESSION: No clear explanation for reported hematuria. No urolithiasis or hydronephrosis. No clearly suspicious renal mass. Bilateral renal cysts. Renal and hepatic hypodensities that are too small to characterize. Patulous small bowel loops with scattered air fluid levels. Consider enteritis. No discrete transition point to indicate mechanical obstruction. Diverticulosis coli without diverticulitis. Incidental findings as above. Electronically signed by: Clint Dorado M.D. 04/01/23 20:06 PM Chest CTA 04/01/23 18:06 Exam(s): CTA CHEST IV Amt: 115ml optiray 350 EXAM: CT Angiography Chest With Intravenous Contrast CLINICAL HISTORY: Reason for exam: PE. TECHNIQUE: Axial computed tomographic angiography images of the chest with intravenous contrast. CTDI is 25.82 mGy and DLP is 1233.97 mGy-cm. Automated exposure control was utilized for the study. A dose lowering technique was utilized adhering to the principles of ALARA. MIP reconstructed images were created and reviewed. COMPARISON: 12/07/22. FINDINGS: There is no pulmonary embolism. Limited aortic opacification. No clear dissection, but the descending segment is not well assessed. No aneurysm. Aortic and coronary atherosclerosis. Mild cardiomegaly. Small pleural effusions. Basilar atelectasis is out of proportion to fluid compression. The right lower lobe is almost completely collapsed. Cannot exclude coexisting pneumonia. Small, nonspecific mediastinal lymph nodes. No acute fracture. IMPRESSION: Basilar atelectasis is out of proportion to fluid compression by small pleural effusions. Near total RLL collapse. Cannot exclude coexisting pneumonia. Mild cardiomegaly with CAD. No PE. Electronically signed by: Clint Dorado M.D. 04/01/23 20:03 PM I & O Totals 24 Hours 04/01/23 04/02/23 04/03/23 06:59 06:59 06:59 Intake Total 100 / 100 Balance 100 / 100 Cumulative 04/01/23 11:41 thru 04/02/23 06:33 Intake Total 100 Balance 100 RT Ventilator Mngmt (Last Documented) Ventilator Ordered Settings Respiratory Rate 18 04/02/23 08:34 Ventilator - PT Measurements Respiratory Rate 18 PG Care Time/CCT Total # of Minutes Spent Total Time Spent with Patient: Total time spent is greater than 50% in coordination of care (as documented) at patient's floor/unit and/or counseling patient: Coding Level of Care Code 47259 INT INP/OBS CARE 3/75MIN Diagnoses Bilateral pleural effusion J90 Cough R05.1 Cough type: acute Atelectasis of both lungs J98.11 Obstructive sleep apnea G47.33
[2023-04-02] MEDS ORDERED: PIPERACILLIN/TAZOBACTAM 4.5 GM in DEXTROSE 5% 100 ML IV SCH (14:30)
--- NOTE | 2023-04-02 14:38 | XCELERA ---
[id number]
--- NOTE | 2023-04-02 18:52 | Electrocardiogram Report ---
Test Reason : Blood Pressure : / mmHG Vent. Rate : 075 BPM Atrial Rate : 075 BPM P-R Int : 166 ms QRS Dur : 092 ms QT Int : 390 ms P-R-T Axes : 039 -01 014 degrees QTc Int : 435 ms Normal sinus rhythm When compared with ECG of 01-APR-2023 12:29, (unconfirmed) No significant change was found Confirmed by Isidro Silva ([id number]) on 04/02/2023 6:52:23 PM Referred By: Sal Spring Confirmed By:Bebo Silva
[2023-04-02] MEDS: DONEPEZIL HCL 10 MG TAB PO SCH (19:50)
[2023-04-02] MEDS: ATORVASTATIN 10 MG TAB PO SCH (19:50)
[2023-04-02] MEDS: traZODone HCL 50 MG TAB PO SCH (21:27)
[2023-04-03] MEDS: LEVOTHYROXINE SODIUM 50 MCG TABLET PO SCH (06:01)
[2023-04-03 06:06] LABS: Basophils # (auto) 0.06 K/uL (0.00-0.20); Basophils % (auto) 0.4 %; Eosinophils # (auto) 0.92 K/uL (0.00-0.50); Eosinophils % (auto) 6.1 %; Hematocrit (blood only) 40.8 % (42.0-52.0); Hemoglobin 13.5 g/dl (14.0-18.0); Immature Granulocytes # (auto) 0.14 K/uL (0.01-0.20); Immature Granulocytes % (auto) 0.9 %; Lymphocytes # (auto) 1.91 K/uL (1.20-3.40); Lymphocytes % (auto) 12.7 %; Mean Corpuscular Hemoglobin 31.1 pg (25.0-34.0); Mean Corpuscular Hgb Conc 33.1 g/dL (32.0-36.0); Mean Platelet Volume 9.2 fL (9.4-12.4); Monocytes # (auto) 1.14 K/uL (0.11-0.59); Monocytes % (auto) 7.6 %; Neutrophils # (auto) 10.88 K/uL (1.40-6.50); Neutrophils % (auto) 72.3 %; Platelet Count 214 K/uL (130-400); RDW Coefficient of Variation 13.1 % (11.5-14.5); RDW Standard Deviation 44.7 fL (36.4-46.3); Red Blood Count 4.34 M/uL (4.70-6.10); White Blood Count 15.05 K/ul (4.8-10.8)
[2023-04-03 06:15] LABS: BUN Creatinine Ratio 24.9 (10-20); Creatinine Clr Calc Pharmacy 30.4 ml/min; Est GFR (African American) 41.7 ml/min; Potassium 4.3 mmol/L (3.5-5.1)
--- NOTE | 2023-04-03 06:55 | Electrocardiogram Report ---
Test Reason : Blood Pressure : / mmHG Vent. Rate : 074 BPM Atrial Rate : 074 BPM P-R Int : 168 ms QRS Dur : 094 ms QT Int : 372 ms P-R-T Axes : 026 007 023 degrees QTc Int : 412 ms Normal sinus rhythm Normal ECG When compared with ECG of 07-DEC-2022 19:36, No significant change was found Confirmed by Isidro Silva ([id number]) on 04/02/2023 6:05:45 PM Referred By: Sal Spring Confirmed By:Bebo Silva
--- NOTE | 2023-04-03 07:59 | Pulmonology Progress Note ---
Date of Service April 03, 2023 Assessment & Plan (1) Bilateral pleural effusion: (2) Cough: Cough type: acute Qualified Code(s): R05.1 - Acute cough (3) Atelectasis of both lungs: (4) Obstructive sleep apnea: Plan Impression: 87-year-old male admitted with a variety of complaints found to have bilateral lower lobe compressive atelectasis with small bilateral pleural effusions. He also has severe complex sleep disordered breathing. Recommendations: 1. Bilateral pleural effusions. Borderline diastolic dysfunction. Would continue diuretics. No indication for thoracentesis. 2. Basilar atelectasis: Suspect this is likely compressive in etiology. Continue flutter valve and incentive spirometry. A follow-up CT scan can be obtained by his outpatient provider in 4 to 6 weeks. No indication to pursue bronchoscopy at this point in time. 3. Swallow evaluation demonstrated no acute clinically evident aspiration. 4. History of severe complex sleep disordered breathing followed at the [facility] sleep center. Continue nightly BiPAP. He can follow-up with the [facility] sleep medicine clinic at discharge. 5. Hypoxemia: Patient's oxygen requirement is slightly increased today. Continue to wean as tolerated. Out of bed to chair and ambulate as tolerated. We will continue to follow with you. Feel free to contact us with questions or concerns Admission and Anticipated Discharge Date Admission Date: April 02, 2023 Subjective Patient seen and examined. EMR reviewed. Patient reports he is doing better. He is not having any new respiratory complaints. He continues to have an intermittent cough. He is not producing any phlegm. He states he was able to use his CPAP last evening. He states he slept better. He has not had fevers chills night sweats or other constitutional symptoms overnight. Review of Systems Review of Systems: All systems reviewed & are unremarkable except as noted in Subjective Physical Exam Constitutional: WD/WN, vitals as above Neck: trachea midline, no thyromegaly Respiratory: normal respiratory effort, lungs clear to auscultation Cardiovascular: RRR, no murmur, no edema Gastrointestinal (Abdomen): normal bowel sounds, soft, nontender, no hepatosplenomegaly Musculoskeletal: Extremities: extremities normal to inspection Skin: no rashes, warm and dry Lymphatic: no cervical lymphadenopathy Results & Data Results & Data Vital Signs (Past 12 Hours) Vital Signs Temp Pulse Pulse Resp BP Pulse Ox O2 Del Method 04/03/23 07:28 66 04/03/23 03:21 36.7 C 71 18 129/73 91 Nasal Cannula 04/02/23 22:06 80 04/02/23 22:51 37.1 C 71 18 142/77 H 92 CPAP 04/02/23 23:06 74 21 94 O2 Flow Rate 04/03/23 07:28 04/03/23 03:21 4 04/02/23 22:06 04/02/23 22:51 04/02/23 23:06 4 Laboratory Results 04/03/23 05:36 04/03/23 05:36 PG Care Time/CCT Total # of Minutes Spent Total Time Spent with Patient: Total time spent is greater than 50% in coordination of care (as documented) at patient's floor/unit and/or counseling patient: Coding Level of Care Code 73486 SUB INP/OBS CARE 2/35MIN Diagnoses Bilateral pleural effusion J90 Cough R05.1 Cough type: acute Atelectasis of both lungs J98.11 Obstructive sleep apnea G47.33
[2023-04-03] MEDS: VIBEGRON 75 MG TAB PO SCH (09:13)
[2023-04-03] MEDS: FINASTERIDE 5 MG TAB PO SCH (09:14)
[2023-04-03] MEDS: SERTRALINE HCL 50 MG TABLET PO SCH (09:14)
[2023-04-03] MEDS: MIDODRINE HCL 2.5 MG TAB PO SCH (09:14)
[2023-04-03] MEDS: CHOLECALCIFEROL 1,000 UNITS 25 MCG TAB PO SCH (09:14)
--- NOTE | 2023-04-03 10:20 | XRay Report ---
XR chest 2V PA/lateral HISTORY: bilateral effusions, hypoxia COMPARISON: Chest 04/01/2023. FINDINGS: Small bilateral pleural effusions and bibasilar densities persist. The heart remains enlarg ed. There is mild central pulmonary vascular congestion without overt edema. The upper lung zones are clear. Old, healed left-sided rib fractures. IMPRESSION: 1. Cardiomegaly and mild congestive change persists. 2. No significant change in the small bilateral pleural fusions and bibasilar densities. ACT 112: Negative or not required by law. Electronically signed by: Kameron Yousif M.D. 04/03/2023 10:18 AM
--- NOTE | 2023-04-03 11:47 | Discharge Summary ---
Date of Service April 03, 2023 Admission HPI Per Admitting Provider Kofi Flower is an 87-year-old male who presents to the ED with worsening cough, lightheadedness, fatigue, and SOB for 2 weeks. The patient reports that the cough has been ongoing for 2 months. He was hospitalized in November for a fall that led to a hemothorax and rib fractures, and his reports that his shortness of breath and coughing improved at first but never fully recovered. On 03/23/2023, his PCP started him on Augmentin 500-125 mg p.o. twice daily x10 days, and prednisone 40 mg p.o. x5 days although subsequent CXR did not show pneumonia. He was also given an albuterol inhaler, but his reported that he was not using it correctly. Unclear if he made any significant improvement with this treatment but also not significantly worse. Coughing worse at night. He denies any leg swelling, weight gain, orthopnea or PND. No known history of heart failure. No fever chills, nasal congestion, sore throat or sinus pain. Associated generalized fatigue and weakness. He notes nocturia once a night and urine smelling stronger than usual. Eating and drinking well. Principal Diagnosis Acute hypoxic respiratory failure, right lower lobe atelectasis with possible underlying pneumonia, bilateral pleural effusions Discharge Exam General-alert and oriented x3, no fevers, no chills HEENT-head atraumatic and normocephalic, pupils equal and reactive to light, extraocular muscles intact Neck-no lymphadenopathy or thyromegaly, trachea midline Chest-diminished breath sounds and dullness at the right base. No wheezing. i Cardiac-regular rate and rhythm, normal S1 and S2 Abdomen-normal bowel sounds, nontender, no hepatosplenomegaly Extremities-no cyanosis, clubbing, or edema Neuro-cranial nerves II through XII intact, motor and sensory function within normal limits, strength symmetrical , no focal deficits Psych-normal affect, normal mood Discharge Data Allergies Allergy/AdvReac Type Severity Reaction Status Date / Time walnut Allergy Severe AFFECTS Verified 04/01/23 17:14 THE LINING OF MOUTH AND THROAT (ITCHY) lidocaine Allergy Mild Rash Verified 04/01/23 17:14 Consultations 04/01/23 16:21 ED Decision to Admit Stat 04/02/23 08:44 Consult Pulmonology Routine Ordered Studies 04/01/23 18:02 CT Abd and Pelvis [CT abdomen pelvis wo/w con] Urgent 04/01/23 18:06 CT for pulmonary embolism PE [CT angio chest PE protocol] Urgent Hospital Course (1) SOB (shortness of breath): Acute hypoxic respiratory failure present on admission. Oxygen was administered per nasal cannula to maintain saturation greater than 90%. He passed his two- step evaluation on room air and would not need home oxygen at discharge. He will go home with incentive spirometry and an oral antibiotic due to possible right lower lobe pneumonia. Chest CTA negative for pulmonary embolism. (2) Bilateral pleural effusion: Hopefully just passive. No overt congestive heart failure. Incentive spirometry ordered. He does not appear to need diuresis. Cardiac echo reveals normal left ventricular ejection fraction (3) Microscopic hematuria: UA was 3+ positive for blood. Urine culture negative. This will need further outpatient evaluation. Abdominal pelvic CT scan did not provide any additional information (4) Cough: Nonproductive. Due to right lower lobe atelectasis (5) Fatigue: Unclear definitive cause on admission but suspect from lack of sleep with ongoing night time coughing. 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 Continue incentive spirometry at least 4 times a day. Total Time Total Time Spent Total Time Spent (In Minutes): 45 minutes Discharge Plan Discharge Items Patient Disposition: Home - Home Health Services Reason For Visit: SOB, MICROSCOPIC HEMATURIA, CHF Discharge Diagnosis: Acute hypoxic respiratory failure, right lower lobe atelectasis, possible right lower lobe pneumonia, bilateral pleural effusions Activity: Resume your previous activity Non-emergency contact: Primary Care Provider Call non-emergency contact if: your symptoms worsen Follow-up/Referrals: Erika Sequeira MD [Primary Care Provider] - Diet: Regular Addtl Attending Provider Instructions: Use incentive spirometry at least 4 times a day. Take Augmentin antibiotic for 1 more week Pending Studies at Discharge: No Stand-Alone Forms: My [employer], Smoking Cessation Medications and DC Order Prescriptions: New amoxicillin-pot clavulanate 875-125 mg tablet 1 tab PO BID Qty: 14 0RF Continued sertraline 50 mg tablet 50 mg PO DAILY Qty: 30 8RF atorvastatin 10 mg tablet 10 mg PO HS Qty: 90 3RF midodrine 2.5 mg tablet 2.5 mg PO BID Qty: 60 0RF Rx Instructions: do not give last dose of day after 6PM or within 4 hrs of bedtime albuterol sulfate 90 mcg/actuation HFA aerosol inhaler 2 puff inhalation QID PRN (Reason: shortness of breath or wheezing) Qty: 6.7 0RF trazodone 50 mg tablet 50 mg PO HS Qty: 30 0RF finasteride 5 mg tablet 5 mg PO DAILY Qty: 90 3RF Myrbetriq 25 mg tablet extended release 24 hr 25 mg PO DAILY Qty: 30 2RF Rx Instructions: Take one tablet daily. albuterol sulfate 2.5 mg /3 mL (0.083 %) solution for nebulization 2.5 mg inhalation QID PRN (Reason: shortness of breath or wheezing) Qty: 75 1RF (DME) Wheeled Walker Misc See Rx Instructions .Route Qty: 1 0RF Rx Instructions: WITH A SEAT AND BREAKS multivitamin Tablet 1 tab PO QAM omega [id number]-[id number]-fish oil [Fish Oil] 1,000 mg (120 mg-180 mg) Capsule 1 cap PO QAM cholecalciferol (vitamin D3) [Vitamin D3] 25 mcg (1,000 unit) Tablet 25 mcg PO QAM donepezil 10 mg tablet 10 mg PO HS vitamin E acetate 134 mg (200 unit) Capsule 134 mg PO QAM levothyroxine 50 mcg tablet 50 mcg PO DAILYBB Discontinued amoxicillin-pot clavulanate [Augmentin] 500-125 mg tablet 1 tab PO BID Qty: 20 0RF Discharge Orders: Discharge Order (Routine); Ordered 04/03/23 Ordered By: Trino Dorado Admission Data Admit Date/Time: 04/02/23 08:44 Attending Provider: Trino Dorado Admit Provider: Clint Landers Primary Care Provider: Erika Sequeira Other Providers: Clint Landers ; Zbigniew Alvarez ; Ge Garcia ; Kenji Crawley ; Lionel Doll ; Ac Alonzo ; Anai Abbott ; Evelia Gardner ; Gerald Key Gage Serrano ; [place] Coding Level of Care Code 02943 INP/OBS DISCH >30 MIN Diagnoses SOB (shortness of breath) R06.02 Bilateral pleural effusion J90 Microscopic hematuria R31.29 Cough R05.9 Fatigue R53.83 Memory impairment R41.3 BPH w urinary obs/LUTS N40.1; N13.8 Orthostatic hypotension I95.1
== END 2023-04-03 13:20 | disposition home health service (06) | DRG 186 ==
LOC: EDINP 11:41 → ED 11:41 → SUATTDRO 18:08 → 2N 22:59